=== PATIENT | female | born 1935 | race Caucasian/White ===

== ENCOUNTER 2017-02-14 10:47 | Emergency (ER) | payer OTHER ==
[2017-02-14 10:55] VITALS: BP 156/69; BMI 23.1
[2017-02-14] MEDS ORDERED: MORPHINE SULFATE INJ 4 MG IVP ONE ×2 (11:00→11:02)
[2017-02-14] MEDS ORDERED: ZOFRAN INJ 4 MG VIAL IVP ONE ×2 (11:00→11:02)
--- NOTE | 2017-02-14 11:00 | DR.GENAD ---
HPI - PCP Primary Care Physician: DR. CAGE - HPI Comment HPI Comment: FELL OFF SIDE WALK ON HER RIGHT SIDE. PAIN RIGHT SHOULDER AND HIP. NO LOC. - Complaint/Symptoms Chief Complaint Doctors Comments: FELL, PAIN RIGHT HIP AND RIGHT SHOULDER. Chief Complaint:: PATIENT STEPPED OFF THE SIDEWALK AND FELL. PATIENT IS C/O RIGHT SHOULDER AND RIGHT HIP PAIN. PATIENT IS ON LONG SPINE BOARD AT THIS TIME. - Nurses notes reviewed Nurses Notes Review: Yes - Source History Provided: Patient, EMS - Mode of Arrival Mode of Arrival: EMS - Timing Onset of Chief Complaint: 02/14/17 Came on: Suddenly - Duration Duration: Constant Duration: Days - Severity Severity: Moderate PMH - PMH Past Medical History: Yes Past Medical History: GERD Past Medical History Comment: PVC Past Surgical History: Yes Surgical History: Abdominal Surgery, COUNTER WAITRESS/WAITER Surgery, Ortho Surgery Past Surgical History Comment: RT. SHLD REPLACEMENT, RT HIP REPLACEMENT AND RT KNEE REPLACEMENT - Family History History of Family Medical Conditions: Yes Family Medical History: Cancer, [place], Hypertension - Social History Does patient currently use any type of tobacco product: No Have you used tobacco products in the last 12 months: No Type of Tobacco Use: None Does any household member use tobacco: No Alcohol Use: None Do you use any recreational Drugs:: No Lives With: Family Lives Where: Home - infectious screening In the last 2 months have you had wt loss of >10#?: NO Have you had fever, night sweats or hemotysis?: No Have you traveled outside the country in the last 6 months?: No Isolation: Standard ROS - Review of Systems Constitutional: No Symptoms Reported Eyes: No Symptoms Reported ENTM: No Symptoms Reported Respiratoy: No Symptoms Reported Cardiovascular: No Symptoms Reported Gastrointestinal/Abdominal: No Symptoms Reported Genitourinary: No Symptoms Reported Neurological: No Symptoms Reported Musculoskeletal: Right, Shoulder, Hip Integumentary: No Symptoms Reported Hematologic/Lymphatic: No Symptoms Reported Endocrine: No Symptoms Reported All Other Systems: Reviewed and Negative PE - Vital Signs Vitals: Temperature 98.2 F Pulse Rate 60 Respiratory Rate 20 Blood Pressure [Left Arm] 118/55 Blood Pressure [Right Arm] 130/58 Blood Pressure 156/69 O2 Sat by Pulse Oximetry 100 - General Limitations: No Limitations General Appearance: Alert - Head Head Exam: Normal Inspection - Eyes Eye exam: Normal Appearance - ENT ENT Exam: Normal External Ear Exam External Ear Exam: Normal External Inspection TM/Canal Exam: Bilateral Normal Nose Exam: Normal Nose Exam Mouth Exam: Normal Inspection Throat Exam: Normal Inspection - Neck Neck Exam: Trachea Midline - Chest Chest Inspection: Symmetric Chest Wall Rise - Respiratory Respiratory Exam: Normal Lung Sounds Bilat Respiratory Exam: Bilateral Clear to Auscultation - Cardiovascular Cardiovascular Exam: Regular Rate, Normal Rhythm, Normal Heart Sounds - Abdominal Exam Abdominal Exam: Normal Bowel Sounds, Soft. negative: Tenderness - Extremities Extremities Exam: Tenderness, Joint Swelling (SHOULDER AND HIP TENDER, ROM DECREASE.) - Back Back Exam: Normal Inspection - Neurologic Neurological Exam: Alert, Oriented X3 - Psychiatric Psychiatric Exam: Normal Affect, Normal Mood - Skin Skin Exam: Normal Color MDM - Additional Information Additional Information Obtained From: Family - Differential Diagnosis Differential Diagnosis: FRACTURE, CONTUSION AND SPRAIN RT HIP AND ANKLE. RT HIP DISLOCATION. Course - Treatment Treatment: SEE ORDERS. PAIN MED IV TWICE IN ED. - Reevaluation 1st: Improved (PAIN IMPROVE WITH MED.) - Consultation Consultation Comments: PATIENT ACCEPTED FOR TANSFER TO [facility] BY DR. HUTCHISON, ED. - Education/Counseling Education/Counseling: Patient, Family, Education Educated On: Diagnosis ROR - Labs Reviewed Laboratory: Specimen Type Catherized urine 02/14/17 13:20 Urine Color Yellow (YELLOW) 02/14/17 13:20 Urine Appearance Hazy (CLEAR) 02/14/17 13:20 Urine pH 7.0 (5.0 - 8.0) 02/14/17 13:20 Ur Specific [place] 1.005 (1.000-1.030) 02/14/17 13:20 Urine Protein Negative (NEGATIVE) 02/14/17 13:20 Urine Glucose (UA) Negative (NEGATIVE) 02/14/17 13:20 Urine Ketones Negative (NEGATIVE) 02/14/17 13:20 Urine Occult Blood Negative (NEGATIVE) 02/14/17 13:20 Urine Nitrite Negative (NEGATIVE) 02/14/17 13:20 Urine Bilirubin Negative (NEGATIVE) 02/14/17 13:20 Urine Urobilinogen Normal (NORMAL) 02/14/17 13:20 Ur Leukocyte Esterase Negative (NEGATIVE) 02/14/17 13:20 Urine RBC None seen /HPF (NEGATIVE) 02/14/17 13:20 Urine WBC None seen /HPF (NEGATIVE) 06/28/17 13:20 Ur Squamous Epith Cells Rare /HPF (NEGATIVE) 02/14/17 13:20 Amorphous Sediment 3+ /HPF (NEGATIVE) 02/14/17 13:20 Urine Bacteria Trace /HPF (NEGATIVE) 02/14/17 13:20 Ur Culture Indicated? No/not indicated 02/14/17 13:20 - XRAY XRAY Findings: REPORT DISCUSS WITH PATIENT. - Diagnosis Discharge Problem: Periprosthetic fracture around internal prosthetic right hip joint Qualifiers: Encounter type: initial encounter Qualified Code(s): M97.01XA - Periprosthetic fracture around internal prosthetic right hip joint, initial encounter Right clavicle fracture Qualifiers: Encounter type: initial encounter Clavicle location: shaft Fracture type: closed Fracture alignment: displaced Qualified Code(s): S42.021A - Displaced fracture of shaft of right clavicle, initial encounter for closed fracture Sprain of right knee Qualifiers: Encounter type: initial encounter Involved ligament of knee: unspecified ligament Qualified Code(s): S83.91XA - Sprain of unspecified site of right knee , initial encounter - Discharge Plan Disposition: 02 XFER [facility] HOS[facility] Condition: Stable - Follow ups/Referrals Follow ups/Referrals: Eddie Cage [Primary Care Provider] - 3 days - Instructions
[2017-02-14] MEDS ORDERED: MORPHINE SULFATE INJ 4 MG IM ONE (11:01)
[2017-02-14] MEDS ORDERED: ZOFRAN INJ 4 MG VIAL IM ONE (11:01)
[2017-02-14] MEDS ORDERED: ZOFRAN INJ 4 MG VIAL ONE ×2 (11:04→14:15)
[2017-02-14] MEDS ORDERED: MORPHINE SULFATE INJ 4 MG ONE (11:04)
--- NOTE | 2017-02-14 11:31 | RAD ---
Right hip-two views Indication: Pain after fall. Findings: There is bipolar right hip arthroplasty projecting as expected. Fracture of the lesser tro chanter noted, displaced medially. This appears acute. Spine pelvis degenerative change noted. Impression: Acute right periprostatic fracture involving the lesser trochanter which is displaced me dially. Reported By:
--- NOTE | 2017-02-14 11:32 | RAD ---
Right knee two views Indication: Right knee pain after fall. Findings: Right knee prosthesis is intact without large effusion or cortical lucency seen. No fractu re. Impression: Intact right knee arthroplasty without fracture. Reported By:
--- NOTE | 2017-02-14 11:34 | RAD ---
HISTORY: Fall. Study: Three views of the right shoulder. Comparison: Portable chest series dated November 12, 2016 and right shoulder series dated August 28. Findings: The patient is status post right shoulder arthroplasty that appears unchanged and intact. There is a n inferior displaced fracture of the right distal clavicle with widening of the associated acromiocl avicular joint. Remaining visualized osseous structures appear intact. The visualized lung is clear. The soft tissues are unremarkable. IMPRESSION: 1. Right distal clavicular fracture as above. 2. Right shoulder arthroplasty appears intact. Reported By:
[2017-02-14 13:36] LABS: BILIRUBIN,URINE NEGATIVE (NEGATIVE); BLOOD/HEMOGLOBIN,URINE NEGATIVE (NEGATIVE); GLUCOSE, URINE NEGATIVE (NEGATIVE); KETONES,URINE NEGATIVE (NEGATIVE); LEUKOCYTE ESTERASE ,URINE NEGATIVE (NEGATIVE); NITRITES,URINE NEGATIVE (NEGATIVE); PROTEIN,URINE NEGATIVE (NEGATIVE); UROBILINOGEN,URINE NORMAL (NORMAL)
[2017-02-14 13:50] LABS: AMORPHOUS SEDIMENT,UR 3+ /HPF (NEGATIVE); APPEARANCE,URINE HAZY (CLEAR); BACTERIA,URINE TRACE /HPF (NEGATIVE); COLOR,URINE YELLOW (YELLOW); RBC,URINE NONE SEEN /HPF (NEGATIVE); SQUAMOUS EPITHELIAL CELL,UR RARE /HPF (NEGATIVE)
[2017-02-14] MEDS ORDERED: DILAUDID INJ IVP ONE (13:58)
[2017-02-14] MEDS ORDERED: DILAUDID INJ ONE (13:59)
[2017-02-14] MEDS ORDERED: PHENERGAN INJ 25 MG ONE (14:45)
== END 2017-02-14 14:42 | disposition short-term general hospital (02) ==
LOC: ER 10:47
DX: S83.91XA Sprain of unspecified site of right knee, initial encounter (principal); S42.021A Displaced fracture of shaft of right clavicle, initial encounter for closed fracture; M97.01XA Periprosthetic fracture around internal prosthetic right hip joint, initial encounter; W19.XXXA Unspecified fall, initial encounter
CPT/HCPCS: 73030; 73501; 73560; 81001; 96365; 96367; 96374; 96375; 99283; 99285; J1170; J2270; J2405; J2550

== ENCOUNTER → 2017-03-01 | Outpatient (CLI) | payer OTHER ==
[2017-02-14 10:55] VITALS: BP 156/69
--- NOTE | 2017-03-01 15:07 | RAD ---
HISTORY: Patient status post repair postop fracture are right hip prosthesis. Study: Two views of the right hip. Comparison: Right hip series dated February 14 2017. Findings: Patient is status post cerclage placement about a right total hip arthroplasty from recent periprost hetic fracture. There is improved alignment without significant healing. The hardware otherwise appe ars intact. Remaining osseous structures appear unchanged. Surgical clips overlying the soft tissues on the right. IMPRESSION: Improved alignment without significant healing. Reported By:
== END | disposition home or self-care (01) ==
LOC: RAD 13:30
PROVIDERS: ATTEND Internal Medicine
DX: M97.01XA Periprosthetic fracture around internal prosthetic right hip joint, initial encounter (principal); X58.XXXA Exposure to other specified factors, initial encounter; Z98.890 Other specified postprocedural states
CPT/HCPCS: 73501

== ENCOUNTER 2018-10-30 09:20 | Observation (INO) ==
[2018-10-30 10:29] LABS: BASOPHILS % (AUTO) 0.7 % (0.2-1.0); EOSINOPHILS # (AUTO) 0.1 x10^3/uL (0.0-0.2); EOSINOPHILS % (AUTO) 1.5 % (0.9-2.9); HEMATOCRIT 36.2 % (36.0-47.0); HEMOGLOBIN 12.4 g/dL (12.0-16.0); LYMPHOCYTES # (AUTO) 2.4 X10^3/uL (1.3-2.9); LYMPHOCYTES % (AUTO) 44.3 % (21.0-51.0); MEAN CORPUSCULAR HEMOGLOBIN 29.3 pg (27.0-34.0); MEAN CORPUSCULAR HGB CONC 34.1 g/dL (33.0-35.0); MEAN CORPUSCULAR VOLUME 85.8 fL (80.0-100.0); MEAN PLATELET VOLUME 7.8 fL (7.4-11.0); MONOCYTES # (AUTO) 0.5 x10^3/uL (0.3-0.8); MONOCYTES % (AUTO) 9.8 % (0.0-13.0); NEUTROPHILS # (AUTO) 2.4 x10^3/uL (2.2-4.8); NEUTROPHILS % (AUTO) 43.7 % (42.0-75.0); PLATELET COUNT 180 X10^3/uL (150.0-450.0); RED BLOOD COUNT 4.23 X10^6/uL (3.5-5.4); WHITE BLOOD COUNT 5.4 X10^3/uL (3.6-10.0)
--- NOTE | 2018-10-30 10:38 | RAD ---
HISTORY: Chest pain Study: Single-view chest, done portably Comparison: 11/12/2016. Findings: There is evidence of a reverse right shoulder arthroplasty. There is slight [id number]-vb-[id number] deviation of trachea at the level of the thoracic inlet. This may indicate thyroid enlargement or other neck mass. Thyroid ultrasound may be of benefit. There is cardiomegaly with atherosclerotic calcification and uncoiling of the aortic arch. There is hyperinflation of the lungs with increased interstitial markings. Findings may represent COPD in the appropriate clinical setting. No consolidation, CHF, pleural fluid or pneumothorax is seen. IMPRESSION: Findings likely representing COPD. No infiltrate or CHF is seen. Slight [id number]-ke-[id number] deviation of the trachea at the level of the thoracic inlet. This may be on the basis of thyroid or other neck mass. Thyroid ultrasound is suggested. Reported By:
--- NOTE | 2018-10-30 10:46 | DR.SOBA ---
HPI Time Seen Time Seen by Provider: 10/30/18 10:46 Primary Care Physician Primary Care Physician: FAUZIA HPI Comment HPI Comment: PATIENT SUDDEN BECAME SOB AT HOME AND STARTED HAVING DISCOMFORT IN THEN HAVING PAIN IN [place] HE XYPHOID AREA. DDENIES FEVER, DYSURIA OR URI SYMPTOMS. Complaints Chief Complaint Doctors Comments: SOB, EPIGASTRIC PAIN. 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 Duration: Minutes Context Onset:: At Rest PE Risk Factors:: None History of:: None Currently on:: Neither Prehospital Care:: None Modifying Factors Worsens:: Nothing Improves:: Nothing Associated Signs and Symptoms Associated Signs and Symptoms: None PMH PMH Past Medical History: Yes Past Medical History: GERD Past Surgical History: Yes Surgical History: Abdominal Surgery, EVAPORATOR Surgery and Ortho Surgery Family History History of Family Medical Conditions: Yes Family Medical History: Cancer, [place] and Hypertension Social History Does any household member use tobacco: No Alcohol Use: None Do you use any recreational Drugs:: No Lives With: Spouse Lives Where: Home infectious screening In the last 2 months have you had wt loss of >10#?: NO Have you had fever, night sweats or hemotysis?: No Have you traveled outside the country in the last 6 months?: No Isolation: Standard ROS Review of Systems Constitutional: No Symptoms Reported Eyes: No Symptoms Reported ENTM: No Symptoms Reported Respiratoy: Short of Breath Cardiovascular: Chest Pain Gastrointestinal/Abdominal: Abdominal Pain (EPIGASTRIC PAIN.) Genitourinary: No Symptoms Reported Neurological: No Symptoms Reported Musculoskeletal: No Symptoms Reported and Foot Integumentary: No Symptoms Reported Hematologic/Lymphatic: No Symptoms Reported Endocrine: No Symptoms Reported Psychiatric: No Symptoms Reported All Other Systems: Reviewed and Negative PE Vital Signs Vitals: Temperature 97.9 F Pulse Rate [Apical] 56 Pulse Rate 57 Respiratory Rate 20 Blood Pressure [Left Arm] 132/65 Blood Pressure [Right Arm] 130/58 Blood Pressure 134/60 O2 Sat by Pulse Oximetry 99 General Limitations: No Limitations General Appearance: Alert and In No Apparent Distress Head Head Exam: Normal Inspection Eyes Eye exam: Normal Appearance ENT ENT Exam: Normal External Ear Exam Neck Neck Exam: Normal Inspection; negative Trachea Midline (DEVIATED TO RT SLIGHTLY.) Chest Chest Inspection: Normal Inspection and Symmetric Chest Wall Rise Respiratory Respiratory Exam: Normal Lung Sounds Bilat Respiratory Exam: Bilateral: Clear to Auscultation Cardiovascular Cardiovascular Exam: Regular Rate and Normal Rhythm Abdominal Exam Abdominal Exam: Normal Inspection, Normal Bowel Sounds and Soft Extremities Extremities Exam: Tenderness (WALKING BOOT LT FOOT.) Back Back Exam: Normal Inspection Neurologic Neurological Exam: Alert, Oriented X3 and CN II-XII Intact; negative Motor Sensory Deficit Psychiatric Psychiatric Exam: Normal Affect and Normal Mood Skin Skin Exam: Warm, Dry, Intact and Normal Color MDM Additional Information Obtained Additional Information Obtained From: Old Records and Family Differential Diagnosis Differential Diagnosis: Bronchitis, Dysrhythmia, Hyponatremia, Mycardial Infarction, Pneumonia, Pneumothorax, Pulmonary embolism and Respiratory Insufficiency COURSE Treatment Treatment: SEE ORDERS. Consultation Consultation Comments: CARDIOLOGY CONSULT, DR. TATE CAME TO ED TO SEE PATIENT. DR CAGE WILL ADMIT PATIENT. Education/Counseling Education/Counseling: Patient and Family Educated On: Diagnosis ROR Labs Reviewed Laboratory Results Reviewed?: Yes Result Diagrams: 11/01/18 04:25 11/01/18 04:25 Laboratory: WBC 6.5 X10^3/uL (3.6-10.0) 11/01/18 04:25 RBC 4.32 X10^6/uL (3.5-5.4) 11/01/18 04:25 Hgb 12.5 g/dL (12.0-16.0) 11/01/18 04:25 Hct 37.9 % (36.0-47.0) 11/01/18 04:25 MCV 87.7 fL (80.0-100.0) 11/01/18 04:25 MCH 28.9 pg (27.0-34.0) 11/01/18 04:25 MCHC 32.9 g/dL (33.0-35.0) L 11/01/18 04:25 RDW 14.0 % (11.6-16.5) 11/01/18 04:25 Plt Count 195 X10^3/uL (150.0-450.0) 11/01/18 04:25 MPV 8.2 fL (7.4-11.0) 11/01/18 04:25 Neut % (Auto) 40.6 % (42.0-75.0) L 11/01/18 04:25 Lymph % (Auto) 47.1 % (21.0-51.0) 11/01/18 04:25 [place] % (Auto) 9.4 % (0.0-13.0) 11/01/18 04:25 Eos % (Auto) 2.4 % (0.9-2.9) 11/01/18 04:25 Baso % (Auto) 0.5 % (0.2-1.0) 11/01/18 04:25 Neut # (Auto) 2.6 x10^3/uL (2.2-4.8) 11/01/18 04:25 Lymph # (Auto) 3.1 X10^3/uL (1.3-2.9) H 11/01/18 04:25 [place] # (Auto) 0.6 x10^3/uL (0.3-0.8) 11/01/18 04:25 Eos # (Auto) 0.2 x10^3/uL (0.0-0.2) 11/01/18 04:25 Baso # (Auto) 0.0 X10^3/uL (0.0-0.1) 11/01/18 04:25 Absolute Nucleated RBC 0.0 /100WBC 11/01/18 04:25 INR Target Range - 10/30/18 10:10 INR 0.94 (0.8-1.3) 10/30/18 10:10 APTT 28.5 SECONDS (22.9-36.5) 10/30/18 10:10 PTT Comment - 10/30/18 10:10 D-Dimer 881 ng/mL (0-400) H* 10/30/18 10:10 Sodium 139 mmol/L (136-145) 11/01/18 04:25 Corrected Sodium TNP 11/01/18 04:25 Potassium 4.5 mmol/L (3.5-5.1) 11/01/18 04:25 Chloride 105 mmol/L (98-107) 11/01/18 04:25 Carbon Dioxide 25.2 mmol/L (21-32) 11/01/18 04:25 BUN 13 mg/dL (7-18) 11/01/18 04:25 Creatinine 0.63 mg/dL (0.55-1.02) 11/01/18 04:25 Est GFR (MDRD) Af Amer > 60 (>60) 11/01/18 04:25 Est GFR (MDRD) Non-Af > 60 (>60) 11/01/18 04:25 Glucose 89 mg/dL (65-99) 11/01/18 04:25 Calcium 8.2 mg/dL (8.5-10.1) L 11/01/18 04:25 Corrected Calcium 8.8 mg/dL (8.5-10.1) 11/01/18 04:25 Total Bilirubin 0.20 mg/dL (0.2-1.0) 11/01/18 04:25 AST 18 Units/L (15-37) 11/01/18 04:25 ALT 17 Units/L (12-78) 11/01/18 04:25 Alkaline Phosphatase 45 Units/L (46-116) L 11/01/18 04:25 Creatine Kinase 45 Units/L (26-192) 10/31/18 00:15 CK-MB (CK-2) < 1.0 ng/mL (0-4.0) 10/31/18 00:15 CK/CKMB % Calc 2.2 % (<4) 10/31/18 00:15 Troponin I 0.03 ng/mL (0-1.5) 10/31/18 00:15 Total Protein 6.6 g/dL (6.4-8.2) 11/01/18 04:25 Albumin 3.2 g/dL (3.4-5.0) L 11/01/18 04:25 Globulin 3.4 g/dL (2.5-4.5) 11/01/18 04:25 Albumin/Globulin Ratio 0.9 Ratio (1.1-2.1) L 11/01/18 04:25 Triglycerides 31 mg/dL (0-150) 10/31/18 04:05 Cholesterol 155 mg/dL (0-200) 10/31/18 04:05 LDL Cholesterol, Calc 77 mg/dL (0-100) 10/31/18 04:05 HDL Cholesterol 72 mg/dL (40-60) H 10/31/18 04:05 Cholesterol/HDL Ratio 2.2 (0.0-5.0) 10/31/18 04:05 TSH 3rd Generation 0.231 uIU/mL (0.358-3.74) L 10/30/18 12:05 Specimen Type Clean catch urine 10/30/18 12:43 Urine Color Yellow (YELLOW) 10/30/18 12:43 Urine Appearance Clear (CLEAR) 10/30/18 12:43 Urine pH 8.0 (5.0 - 8.0) 10/30/18 12:43 Ur Specific [place] 1.015 (1.000-1.030) 10/30/18 12:43 Urine Protein Negative (NEGATIVE) 10/30/18 12:43 Urine Glucose (UA) Negative (NEGATIVE) 10/30/18 12:43 Urine Ketones Negative (NEGATIVE) 10/30/18 12:43 Urine Occult Blood Negative (NEGATIVE) 10/30/18 12:43 Urine Nitrite Negative (NEGATIVE) 10/30/18 12:43 Urine Bilirubin Negative (NEGATIVE) 10/30/18 12:43 Urine Urobilinogen Normal (NORMAL) 10/30/18 12:43 Ur Leukocyte Esterase Negative (NEGATIVE) 10/30/18 12:43 XRAY XRAY Interpreted by: Radiologist XRAY Findings: REPORT ON RECORD NOTED AND DISCUSS WITH PATIENT AND HER FAMILY.
[2018-10-30] MEDS ORDERED: PEPCID 20 MG IV PREMIX* 20 MG/50 ML BAG IV ONE ×2 (10:48→11:01)
[2018-10-30 11:04] LABS: ALANINE AMINOTRANSFERASE 19 Units/L (12-78); ALBUMIN 3.3 g/dL (3.4-5.0); ALKALINE PHOSPHATASE 45 Units/L (46-116); ASPARTATE AMINO TRANSFERASE 20 Units/L (15-37); BLOOD UREA NITROGEN 14 mg/dL (7-18); CARBON DIOXIDE 24.1 mmol/L (21-32); CHLORIDE 104 mmol/L (98-107); CKMB % 1.8 % (<4); COR CA(FOR HYPOALB) 9.6 mg/dL (8.5-10.1); CREATINE KINASE 56 Units/L (26-192); CREATINE KINASE MB < 1.0 ng/mL (0-4.0); CREATININE 0.63 mg/dL (0.55-1.02); SODIUM 136 mmol/L (136-145); TOTAL PROTEIN 6.7 g/dL (6.4-8.2); TROPONIN I 0.06 ng/mL (0-1.5); eGFR NON BLACK RACES > 60 (>60)
--- NOTE | 2018-10-30 12:01 | CT ---
HISTORY: Chest pain Study: CTA chest with contrast for pulmonary embolus Comparison: None Technique: Axial post-contrast images with coronal, sagittal, and three-dimensional maximum intensity projection images obtained and evaluated. Dose reduction procedures were used with mA/kv adjusted for body size. Findings: There is no evidence for acute pulmonary thromboembolic disease. Examination of the mediastinum demonstrated enlargement of the left lobe of the thyroid within which there may well be a mass. It contributes to rightward deviation of the upper trachea. Evaluation with sonography is recommended. This could be performed on a non emergent basis. No enlarged mediastinal or enlarged hilar adenopathy is identified. The thoracic aorta demonstrates some calcific atherosclerotic change but no significant dilatation. No pleural effusions are identified. No chest wall or axillary abnormality is identified. Evaluation of those portions of the upper abdominal organs visualized was within normal limits. Multiple benign hepatic cysts are present. Examination of the lung conway demonstrated no definite evidence for nodules, masses, alveolar infiltrates, areas of consolidation, peribronchial thickening, or bronchiectasis. IMPRESSION: No evidence for acute pulmonary thromboembolic disease Lungs clear Marked enlargement of the left thyroid lobe possibly containing a large mass. Sonographic evaluation is recommended. This could be performed on a non emergent basis. Reported By:
--- NOTE | 2018-10-30 12:22 | CONS ---
Cardiology Consult Consultation for Day of: Date: 10/30/18 Chief Complaint Chief Complaint: chest pain Allergies Allergies Allergy/AdvReac Type Severity Reaction Status Date / Time carbamazepine [From Tegretol] Allergy Verified 10/30/18 09:28 Sulfa (Sulfonamide Allergy Verified 10/30/18 09:28 Antibiotics) [SULFA] Past Medical History Past Medical History: Arthritis and GERD Past Surgical History Surgical History: Abdominal Surgery, HR BUSINESS PARTNER Surgery and Ortho Surgery Family History Family Medical History: Cancer, [place] and Hypertension Social History Does patient currently use any type of tobacco product: No Have you used tobacco products in the last 12 months: No Does any household member use tobacco: No Alcohol Use: None Medications Home Medications: carbamazepine [From Tegretol] Allergy (Verified 10/30/18 09:28) Sulfa (Sulfonamide Antibiotics) [SULFA] Allergy (Verified 10/30/18 09:28) Review of Systems Respiratory: Shortness of Breath and SOB with Excertion Cardiovascular: Chest Pain Physical Exam Vital Signs: Temperature 97.1 F Pulse Rate 60 Respiratory Rate 38 Blood Pressure [Left Arm] 118/55 Blood Pressure [Right Arm] 130/58 Blood Pressure 136/63 O2 Sat by Pulse Oximetry 96 Oriented: Normal Eyes: Normal Throat: Normal Respiratory: Clear Throughout Cardiovascular: Normal and S4 Palpation: Normal Medical Decision Making EKG Results: Sinus Rhythm Labs reviewed: Yes Radiology Reviewed: Yes
[2018-10-30 12:35] LABS: CKMB % 1.9 % (<4); CREATINE KINASE 53 Units/L (26-192); CREATINE KINASE MB < 1.0 ng/mL (0-4.0); TROPONIN I 0.04 ng/mL (0-1.5)
[2018-10-30 13:00] LABS: BILIRUBIN,URINE NEGATIVE (NEGATIVE); BLOOD/HEMOGLOBIN,URINE NEGATIVE (NEGATIVE); GLUCOSE, URINE NEGATIVE (NEGATIVE); KETONES,URINE NEGATIVE (NEGATIVE); LEUKOCYTE ESTERASE ,URINE NEGATIVE (NEGATIVE); NITRITES,URINE NEGATIVE (NEGATIVE); PROTEIN,URINE NEGATIVE (NEGATIVE); UROBILINOGEN,URINE NORMAL (NORMAL)
[2018-10-30 13:28] LABS: APPEARANCE,URINE CLEAR (CLEAR); COLOR,URINE YELLOW (YELLOW)
[2018-10-30 16:03] VITALS: BMI 21.1
[2018-10-30] MEDS: NS 1000 ML 1,000 ML IV SCH ×2 (16:21)
[2018-10-30 18:25] LABS: CKMB % 1.9 % (<4); CREATINE KINASE 52 Units/L (26-192); CREATINE KINASE MB < 1.0 ng/mL (0-4.0); TROPONIN I 0.04 ng/mL (0-1.5)
[2018-10-31] MEDS ORDERED: TOPROL XL PO ONE (00:05)
[2018-10-31] MEDS: TOPROL XL PO SCH ×2 (00:15→21:13)
[2018-10-31 00:47] LABS: CKMB % 2.2 % (<4); CREATINE KINASE 45 Units/L (26-192); CREATINE KINASE MB < 1.0 ng/mL (0-4.0); TROPONIN I 0.03 ng/mL (0-1.5)
[2018-10-31 05:21] LABS: BASOPHILS % (AUTO) 0.5 % (0.2-1.0); EOSINOPHILS # (AUTO) 0.1 x10^3/uL (0.0-0.2); HEMATOCRIT 34.5 % (36.0-47.0); HEMOGLOBIN 11.8 g/dL (12.0-16.0); LYMPHOCYTES # (AUTO) 2.5 X10^3/uL (1.3-2.9); LYMPHOCYTES % (AUTO) 52.1 % (21.0-51.0); MEAN CORPUSCULAR HEMOGLOBIN 29.5 pg (27.0-34.0); MEAN CORPUSCULAR HGB CONC 34.1 g/dL (33.0-35.0); MEAN CORPUSCULAR VOLUME 86.4 fL (80.0-100.0); MEAN PLATELET VOLUME 7.9 fL (7.4-11.0); MONOCYTES # (AUTO) 0.5 x10^3/uL (0.3-0.8); MONOCYTES % (AUTO) 10.4 % (0.0-13.0); NEUTROPHILS # (AUTO) 1.6 x10^3/uL (2.2-4.8); PLATELET COUNT 169 X10^3/uL (150.0-450.0); RED BLOOD COUNT 3.99 X10^6/uL (3.5-5.4); RED CELL DISTRIBUTION WIDTH 13.8 % (11.6-16.5); WHITE BLOOD COUNT 4.8 X10^3/uL (3.6-10.0)
[2018-10-31 05:46] LABS: ALANINE AMINOTRANSFERASE 18 Units/L (12-78); ALKALINE PHOSPHATASE 42 Units/L (46-116); ASPARTATE AMINO TRANSFERASE 17 Units/L (15-37); BLOOD UREA NITROGEN 13 mg/dL (7-18); CALCIUM 8.2 mg/dL (8.5-10.1); CARBON DIOXIDE 25.8 mmol/L (21-32); CHLORIDE 105 mmol/L (98-107); CHOL/HDL RATIO 2.2 (0.0-5.0); CHOLESTEROL 155 mg/dL (0-200); CREATININE 0.64 mg/dL (0.55-1.02); HDL CHOLESTEROL 72 mg/dL (40-60); SODIUM 140 mmol/L (136-145); TOTAL PROTEIN 6.2 g/dL (6.4-8.2); TRIGLYCERIDES 31 mg/dL (0-150); eGFR NON BLACK RACES > 60 (>60)
[2018-10-31] MEDS: NS 1000 ML 1,000 ML IV SCH ×3 (07:02→16:17)
--- NOTE | 2018-10-31 08:37 | US ---
HISTORY: Thyroid mass Study: Thyroid sonogram Comparison: CTA chest 10/30/2018 Technique: Multiple grayscale sonographic images were obtained. Findings: The right lobe measured 3.4 x 1.8 x 1.5 cm, the isthmus 2 mm, and the left lobe 4.5 x 3 x 3.7 cm. In the right lobe of the thyroid there is a 5 mm x 3 mm x 6 mm nodule which does not meet the criteria for fine-needle aspiration. In the left lobe of the thyroid there is a complex partially cystic partially solid 3.8 x 2.8 x 3 cm mass. Fine-needle aspiration of the solid components of the mass is recommended. IMPRESSION: 3.8 x 2.8 x 3 cm complex partially cystic partially solid left thyroid lobe mass for which fine-needle aspiration is recommended. Reported By:
--- NOTE | 2018-10-31 10:13 | DR.H&P ---
H&P - History & Physical for Day of: H&P Date: 10/30/18 - Chief Complaint Chief Complaint: SOB, CHEST PAIN - History of Present Illness History of Present Illness: IS A 83 YEAR OLD PATIENT OF OURS WHO PRESENTED TO THE ER WITH COMPLAINTS OF CHEST PAIN AND SHORTNESS OF BREATH. SYMPTOMS STARTED APPROXIMATELY 20 MINUTES PRIOR TO ARRIVAL. SHE DENIES ANY OTHER COMPLAINTS. ON ARRIVAL, VITALS WERE 97.1-66-20-100%-136/63. LABS WERE OBTAINED. ABNORMAL LAB VALUES INCLUDE THE FOLLOWING: D-DIMER 881, ALK PHOS 45, ALBUMIN 3.3, TSH 0.231. CARDIAC ENZYMES WITHIN NORMAL LIMITS. A CHEST XRAY WAS OBTAINED AND REVEALED: Findings likely representing COPD. No infiltrate or CHF is seen. Slight esaj-ma-dxjmy deviation of the trachea at the level of the thoracic inlet. This may be on the basis of thyroid or other neck mass. Thyroid ultrasound is suggested. CHEST CTA OBTAINED DUE TO ELEVATED D-DIMER AND SOB AND REVEALED: No evidence for acute pulmonary thromboembolic disease. Lungs clear. Marked enlargement of the left thyroid lobe possibly containing a large mass. Sonographic evaluation is recommended. This could be performed on a non-emergent basis. SHE WAS GIVEN PEPCID 20MG IV X 1. SHE WAS ADMITTED FOR FURTHER EVALUATION AND TREAMENT OF CHEST PAIN R/O AMI, SOB, AND THYROID MASS. WE WILL OBTAIN SERIAL CARDIAC ENZYMES AND EKGS AND OBTAIN A THYROID ULTRASOUND. OTHERWISE, WE WILL FOLLOW UP WITH AM LABS AND CONTINUE TO MONITOR. - Past Medical History Past Medical History: GERD - Past Surgical History Surgical History: Cholecystectomy, Ortho Surgery - Family History Family Medical History: Cancer, [place], Hypertension - Social History Does patient currently use any type of tobacco product: No Have you used tobacco products in the last 12 months: No Type of Tobacco Use: None Does any household member use tobacco: No Alcohol Use: None Drug Use: None - Medications Home Medications: carbamazepine [From Tegretol] Allergy (Verified 10/30/18 09:28) Sulfa (Sulfonamide Antibiotics) [SULFA] Allergy (Verified 10/30/18 09:28) sulfamethoxazole [From Bactrim] Adverse Reaction (Verified 10/30/18 14:13) trimethoprim [From Bactrim] Adverse Reaction (Verified 10/30/18 14:13) - Review of Systems Constitutional: No Symptoms Reported, See HPI Eyes: No Symptoms Reported ENT: No Symptoms Reported Respiratory: See HPI, Shortness of Breath Cardiovascular: Chest Pain, See HPI Gastrointestinal: No Symptoms Reported Genitourinary: No Symptoms Reported Musculoskeletal: No Symptoms Reported Skin: No Symptoms Reported Neurological: No Symptoms Reported - Physical Exam Vital Signs: Temperature 98.6 F Pulse Rate [Apical] 56 Pulse Rate 57 Respiratory Rate 18 Blood Pressure [Left Arm] 122/60 Blood Pressure [Right Arm] 130/58 Blood Pressure 134/60 O2 Sat by Pulse Oximetry 96 Oriented: Normal Eyes: Normal Ear: Normal Nose: Normal Throat: Normal Respiratory: Clear Throughout Cardiovascular: Normal : Normal Auscultation: Bowel Sounds: Normal Palpation: Normal Tenderness: Normal Skin: Normal Musculoskeletal: Normal Psychiatric: Normal Mood Description: Calm Affect: Normal Speech Pattern: Clear - Assessment/Plan (1) Chest pain, rule out acute myocardial infarction Status: Acute Plan: OBTAIN SERIAL CARDIAC ENZYMES AND EKGS, TELEMETRY, SUPPLEMENTAL OXYGEN, CONTINUE TO MONITOR (2) Shortness of breath Status: Acute Plan: SUPPLEMENTAL OXYGEN, CONTINUE TO MONITOR (3) Thyroid mass Status: Acute Plan: OBTAIN THYROID ULTRASOUND, CONTINUE TO MONITOR (4) Hyperthyroidism Status: Acute - Allergies Allergies/Adverse Reactions: Allergies Allergy/AdvReac Type Severity Reaction Status Date / Time carbamazepine [From Tegretol] Allergy Verified 10/30/18 09:28 Sulfa (Sulfonamide Allergy Verified 10/30/18 09:28 Antibiotics) [SULFA] sulfamethoxazole AdvReac Verified 10/30/18 14:13 [From Bactrim] trimethoprim [From Bactrim] AdvReac Verified 10/30/18 14:13
[2018-10-31] MEDS ORDERED: MIRALAX POWDER (1 DOSE 17 G) PO SCH (21:00)
[2018-11-01 05:18] LABS: BASOPHILS % (AUTO) 0.5 % (0.2-1.0); EOSINOPHILS # (AUTO) 0.2 x10^3/uL (0.0-0.2); EOSINOPHILS % (AUTO) 2.4 % (0.9-2.9); HEMATOCRIT 37.9 % (36.0-47.0); HEMOGLOBIN 12.5 g/dL (12.0-16.0); LYMPHOCYTES # (AUTO) 3.1 X10^3/uL (1.3-2.9); LYMPHOCYTES % (AUTO) 47.1 % (21.0-51.0); MEAN CORPUSCULAR HEMOGLOBIN 28.9 pg (27.0-34.0); MEAN CORPUSCULAR HGB CONC 32.9 g/dL (33.0-35.0); MEAN CORPUSCULAR VOLUME 87.7 fL (80.0-100.0); MEAN PLATELET VOLUME 8.2 fL (7.4-11.0); MONOCYTES # (AUTO) 0.6 x10^3/uL (0.3-0.8); MONOCYTES % (AUTO) 9.4 % (0.0-13.0); NEUTROPHILS # (AUTO) 2.6 x10^3/uL (2.2-4.8); NEUTROPHILS % (AUTO) 40.6 % (42.0-75.0); PLATELET COUNT 195 X10^3/uL (150.0-450.0); RED BLOOD COUNT 4.32 X10^6/uL (3.5-5.4); WHITE BLOOD COUNT 6.5 X10^3/uL (3.6-10.0)
[2018-11-01] MEDS: NS 1000 ML 1,000 ML IV SCH (05:28)
[2018-11-01 05:29] LABS: ALANINE AMINOTRANSFERASE 17 Units/L (12-78); ALBUMIN 3.2 g/dL (3.4-5.0); ALKALINE PHOSPHATASE 45 Units/L (46-116); ASPARTATE AMINO TRANSFERASE 18 Units/L (15-37); BLOOD UREA NITROGEN 13 mg/dL (7-18); CALCIUM 8.2 mg/dL (8.5-10.1); CARBON DIOXIDE 25.2 mmol/L (21-32); CHLORIDE 105 mmol/L (98-107); COR CA(FOR HYPOALB) 8.8 mg/dL (8.5-10.1); CREATININE 0.63 mg/dL (0.55-1.02); SODIUM 139 mmol/L (136-145); TOTAL PROTEIN 6.6 g/dL (6.4-8.2); eGFR NON BLACK RACES > 60 (>60)
--- NOTE | 2018-11-01 09:18 | PCM.PROG ---
Progress Note - Progress Note for Day of Date of Exam: 10/31/18 - Subjective Subjective: WAS ADMITTED FOR CHEST PAIN RULE OUT AMI, SOB, AND A THYROID MASS. TODAY, SHE IS ALERT AND ORIENTED, LYING IN BED ON MORNING ROUNDS. SHE DENIES CHEST PAIN OR SHORTNESS OF BREATH. SHE DOES REPORT GENERALIZED WEAKNESS. ON EXAMINATION, HEART IS REGULAR IN RATE AND RHYTHM. BILATERAL LUNGS ARE NOTED WITH DIMINISHED LUNG SOUNDS THROUGHOUT. ABDOMEN IS ROUND, SOFT, AND NON-TENDER WITH NORMAL BOWEL SOUNDS NOTED IN ALL QUADRANTS. HER VITALS THIS MORNING ARE 98.6-56-96%-122/60. LABS WERE OBTAINED. ABNORMAL LAB VALUES INCLUDE THE FOLLOWING: CALCIUM 8.2, ALK PHOS 45, ALBUMIN 3.2. CARDIAC ENZYMES AND EKGS WITHIN NORMAL LIMITS. SHE IS SCHEDULED FOR A THYROID ULTRASOUND THIS MORNING. OTHERWISE, WE WILL CONTINUE WITH [facility] PLAN OF CARE. WE PLAN TO FOLLOW UP WITH AM LABS AND CONTINUE TO MONITOR. - Past Medical Family Social History Past Med/Fam/Surg Hx: No changes since H&P Allergies: Allergies carbamazepine [From Tegretol] Allergy (Verified 10/30/18 09:28) Sulfa (Sulfonamide Antibiotics) [SULFA] Allergy (Verified 10/30/18 09:28) sulfamethoxazole [From Bactrim] Adverse Reaction (Verified 10/30/18 14:13) trimethoprim [From Bactrim] Adverse Reaction (Verified 10/30/18 14:13) - Review of Systems ROS: No change since H&P - Vital Signs and I&O's Vital Signs: Temperature 98.4 F Pulse Rate [Apical] 57 Pulse Rate 57 Respiratory Rate 16 Blood Pressure [Left Arm] 143/62 Blood Pressure [Right Arm] 130/58 Blood Pressure 134/60 O2 Sat by Pulse Oximetry 94 Intake and Output: Intake & Output 10/29/18 10/30/18 10/31/18 11/01/18 11:59 11:59 11:59 11:59 Intake Total 820 / 820 1310 / 1310 Output Total 5 / 5 Balance 815 / 815 1310 / 1310 - Physical Exam Oriented: Normal Eyes: Normal Ear: Normal Nose: Normal Throat: Normal Respiratory: Generalized, Diminished Cardiovascular: Normal : Normal Auscultation: Bowel Sounds: Normal Palpation: Normal Tenderness: Normal Skin: Normal Musculoskeletal: Normal Psychiatric: Normal Mood Description: Calm Affect: Normal Speech Pattern: Clear, Appropriate - Laboratory and Diagnostics Result Diagrams: 11/01/18 04:25 11/01/18 04:25 Labs: Laboratory WBC 6.5 X10^3/uL (3.6-10.0) 11/01/18 04:25 RBC 4.32 X10^6/uL (3.5-5.4) 11/01/18 04:25 Hgb 12.5 g/dL (12.0-16.0) 11/01/18 04:25 Hct 37.9 % (36.0-47.0) 11/01/18 04:25 MCV 87.7 fL (80.0-100.0) 11/01/18 04:25 MCH 28.9 pg (27.0-34.0) 11/01/18 04:25 MCHC 32.9 g/dL (33.0-35.0) L 11/01/18 04:25 RDW 14.0 % (11.6-16.5) 11/01/18 04:25 Plt Count 195 X10^3/uL (150.0-450.0) 11/01/18 04:25 MPV 8.2 fL (7.4-11.0) 11/01/18 04:25 Neut % (Auto) 40.6 % (42.0-75.0) L 11/01/18 04:25 Lymph % (Auto) 47.1 % (21.0-51.0) 11/01/18 04:25 [place] % (Auto) 9.4 % (0.0-13.0) 11/01/18 04:25 Eos % (Auto) 2.4 % (0.9-2.9) 11/01/18 04:25 Baso % (Auto) 0.5 % (0.2-1.0) 11/01/18 04:25 Neut # (Auto) 2.6 x10^3/uL (2.2-4.8) 11/01/18 04:25 Lymph # (Auto) 3.1 X10^3/uL (1.3-2.9) H 11/01/18 04:25 [place] # (Auto) 0.6 x10^3/uL (0.3-0.8) 11/01/18 04:25 Eos # (Auto) 0.2 x10^3/uL (0.0-0.2) 11/01/18 04:25 Baso # (Auto) 0.0 X10^3/uL (0.0-0.1) 11/01/18 04:25 Absolute Nucleated RBC 0.0 /100WBC 11/01/18 04:25 INR Target Range - 10/30/18 10:10 INR 0.94 (0.8-1.3) 10/30/18 10:10 APTT 28.5 SECONDS (22.9-36.5) 10/30/18 10:10 PTT Comment - 10/30/18 10:10 D-Dimer 881 ng/mL (0-400) H* 10/30/18 10:10 Sodium 139 mmol/L (136-145) 11/01/18 04:25 Corrected Sodium TNP 11/01/18 04:25 Potassium 4.5 mmol/L (3.5-5.1) 11/01/18 04:25 Chloride 105 mmol/L (98-107) 11/01/18 04:25 Carbon Dioxide 25.2 mmol/L (21-32) 11/01/18 04:25 BUN 13 mg/dL (7-18) 11/01/18 04:25 Creatinine 0.63 mg/dL (0.55-1.02) 11/01/18 04:25 Est GFR (MDRD) Af Amer > 60 (>60) 11/01/18 04:25 Est GFR (MDRD) Non-Af > 60 (>60) 11/01/18 04:25 Glucose 89 mg/dL (65-99) 11/01/18 04:25 Calcium 8.2 mg/dL (8.5-10.1) L 11/01/18 04:25 Corrected Calcium 8.8 mg/dL (8.5-10.1) 11/01/18 04:25 Total Bilirubin 0.20 mg/dL (0.2-1.0) 11/01/18 04:25 AST 18 Units/L (15-37) 11/01/18 04:25 ALT 17 Units/L (12-78) 11/01/18 04:25 Alkaline Phosphatase 45 Units/L (46-116) L 11/01/18 04:25 Creatine Kinase 45 Units/L (26-192) 10/31/18 00:15 CK-MB (CK-2) < 1.0 ng/mL (0-4.0) 10/31/18 00:15 CK/CKMB % Calc 2.2 % (<4) 10/31/18 00:15 Troponin I 0.03 ng/mL (0-1.5) 10/31/18 00:15 Total Protein 6.6 g/dL (6.4-8.2) 11/01/18 04:25 Albumin 3.2 g/dL (3.4-5.0) L 11/01/18 04:25 Globulin 3.4 g/dL (2.5-4.5) 11/01/18 04:25 Albumin/Globulin Ratio 0.9 Ratio (1.1-2.1) L 11/01/18 04:25 Triglycerides 31 mg/dL (0-150) 10/31/18 04:05 Cholesterol 155 mg/dL (0-200) 10/31/18 04:05 LDL Cholesterol, Calc 77 mg/dL (0-100) 10/31/18 04:05 HDL Cholesterol 72 mg/dL (40-60) H 10/31/18 04:05 Cholesterol/HDL Ratio 2.2 (0.0-5.0) 10/31/18 04:05 TSH 3rd Generation 0.231 uIU/mL (0.358-3.74) L 10/30/18 12:05 Specimen Type Clean catch urine 10/30/18 12:43 Urine Color Yellow (YELLOW) 10/30/18 12:43 Urine Appearance Clear (CLEAR) 10/30/18 12:43 Urine pH 8.0 (5.0 - 8.0) 10/30/18 12:43 Ur Specific [place] 1.015 (1.000-1.030) 10/30/18 12:43 Urine Protein Negative (NEGATIVE) 10/30/18 12:43 Urine Glucose (UA) Negative (NEGATIVE) 10/30/18 12:43 Urine Ketones Negative (NEGATIVE) 10/30/18 12:43 Urine Occult Blood Negative (NEGATIVE) 10/30/18 12:43 Urine Nitrite Negative (NEGATIVE) 10/30/18 12:43 Urine Bilirubin Negative (NEGATIVE) 10/30/18 12:43 Urine Urobilinogen Normal (NORMAL) 10/30/18 12:43 Ur Leukocyte Esterase Negative (NEGATIVE) 10/30/18 12:43 - Plan (1) Chest pain, rule out acute myocardial infarction Status: Acute Plan: TELEMETRY, SUPPLEMENTAL OXYGEN, CONTINUE TO MONITOR (2) Shortness of breath Status: Acute Plan: SUPPLEMENTAL OXYGEN, CONTINUE TO MONITOR (3) Thyroid mass Status: Acute Plan: OBTAIN THYROID ULTRASOUND, CONTINUE TO MONITOR (4) Hyperthyroidism Status: Acute
[2018-11-01 12:14] VITALS: BP 121/56
== END 2018-11-01 13:00 | disposition home or self-care (01) ==
LOC: ER 09:20 → MED/SURG 09:20
PROVIDERS: ADMIT Internal Medicine; ATTEND Internal Medicine
DX: R79.1 Abnormal coagulation profile; R06.02 Shortness of breath; R07.89 Other chest pain; E05.00 Thyrotoxicosis with diffuse goiter without thyrotoxic crisis or storm; R10.13 Epigastric pain
CPT/HCPCS: 36415; 71010; 71045; 71275; 76536; 80053; 80061; 81003; 82550; 82553; 84443; 84484; 85025; 85378; 85610; 85730; 93005; 94760; 96365; 96367; 96374; 99284; A4222; S0028; G0378; J7030

== ENCOUNTER 2019-05-15 09:53 | Observation (INO) ==
[2019-05-15] MEDS: NS 1000 ML 1,000 ML IV SCH (11:00)
[2019-05-15 11:15] LABS: ABG BASE EXCESS 3.6 mmol/L (-2.0-2.0); ABG HCO3 25.1 mmol/L (22-26)
[2019-05-15 11:16] LABS: ABG ALLEN TEST POS
[2019-05-15 11:26] LABS: BASOPHILS # (AUTO) 0.1 X10^3/uL (0.0-0.1); BASOPHILS % (AUTO) 0.9 % (0.2-1.0); EOSINOPHILS # (AUTO) 0.1 x10^3/uL (0.0-0.2); EOSINOPHILS % (AUTO) 1.4 % (0.9-2.9); HEMATOCRIT 33.5 % (36.0-47.0); HEMOGLOBIN 11.6 g/dL (12.0-16.0); LYMPHOCYTES # (AUTO) 1.6 X10^3/uL (1.3-2.9); LYMPHOCYTES % (AUTO) 26.5 % (21.0-51.0); MEAN CORPUSCULAR HEMOGLOBIN 29.9 pg (27.0-34.0); MEAN CORPUSCULAR HGB CONC 34.7 g/dL (33.0-35.0); MEAN CORPUSCULAR VOLUME 86.1 fL (80.0-100.0); MEAN PLATELET VOLUME 7.4 fL (7.4-11.0); MONOCYTES # (AUTO) 0.6 x10^3/uL (0.3-0.8); MONOCYTES % (AUTO) 9.2 % (0.0-13.0); NEUTROPHILS # (AUTO) 3.7 x10^3/uL (2.2-4.8); PLATELET COUNT 241 X10^3/uL (150.0-450.0); RED BLOOD COUNT 3.89 X10^6/uL (3.5-5.4); RED CELL DISTRIBUTION WIDTH 13.9 % (11.6-16.5)
[2019-05-15 11:46] LABS: BLOOD UREA NITROGEN 7 mg/dL (7-18); CALCIUM 8.5 mg/dL (8.5-10.1); CHLORIDE 100 mmol/L (98-107); CREATININE 0.67 mg/dL (0.55-1.02); SODIUM 135 mmol/L (136-145); TROPONIN I < 0.02 ng/mL (0-1.5); eGFR NON BLACK RACES > 60 (>60)
[2019-05-15 11:50] LABS: ALANINE AMINOTRANSFERASE 16 Units/L (12-78); ALBUMIN 3.1 g/dL (3.4-5.0); ALKALINE PHOSPHATASE 50 Units/L (46-116); ASPARTATE AMINO TRANSFERASE 22 Units/L (15-37); CKMB % 2.2 % (<4); COR CA(FOR HYPOALB) 9.2 mg/dL (8.5-10.1); CREATINE KINASE 45 Units/L (26-192); CREATINE KINASE MB < 1.0 ng/mL (0-4.0); TOTAL PROTEIN 6.4 g/dL (6.4-8.2)
[2019-05-15] MEDS ORDERED: MORPHINE SULFATE INJ 2 MG INJ IVP PRN (12:01)
[2019-05-15] MEDS ORDERED: MORPHINE SULFATE INJ 2 MG INJ ONE (12:04)
[2019-05-15 12:36] VITALS: BMI 21.1
[2019-05-15] MEDS ORDERED: POTASSIUM CHLORIDE LIQ 20 MEQ UDC PO PRN (13:27)
[2019-05-15] MEDS ORDERED: POTASSIUM CHL 40 MEQ/NS 0.45% 500 ML IV PRN (13:27)
[2019-05-15] MEDS ORDERED: K-RIDER 10 MEQ/NS 100 ML 10 MEQ/100 ML BAG IV PRN (13:27)
[2019-05-15] MEDS ORDERED: KLOR-CON PO PRN (13:27)
[2019-05-15] MEDS ORDERED: POTASSIUM CHL 60 MEQ/NS 0.45% 500 ML IV PRN (13:27)
[2019-05-15] MEDS ORDERED: MICRO K EXTEN CAP 10 MEQ PO PRN (13:27)
[2019-05-15] MEDS ORDERED: K-DUR TAB 20 MEQ PO PRN (13:27)
--- NOTE | 2019-05-15 13:45 | RAD ---
HISTORY: Chest pain. Prior history of GERD, hypertension, skin cancer. 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 Trachea is midline. There is still [id number] deviation of the trachea. Patient has a known left thyroid mass. Heart size is upper normal with aortic uncoiling and atherosclerotic calcification of the aortic arch. There is hyperinflation of the lungs with increased interstitial markings bilaterally. Findings have the appearance of COPD. No infiltrate, CHF or pleural fluid is seen. There is no evidence of pneumothorax. There is a thoracolumbar scoliosis present. IMPRESSION: COPD without acute cardiopulmonary disease. Hypertensive configuration. Reported By:
[2019-05-15 15:02] LABS: CKMB % 2.4 % (<4); CREATINE KINASE 41 Units/L (26-192); CREATINE KINASE MB < 1.0 ng/mL (0-4.0); TROPONIN I < 0.02 ng/mL (0-1.5)
[2019-05-15] MEDS: MAGNESIUM SULFATE 1 GRAM/100 mL PREMIX 1 GM/100 ML BAG IV PRN ×2 (15:16→17:07)
--- NOTE | 2019-05-15 15:29 | CT ---
CT CHEST WITH IV CONTRAST HISTORY: Chest pain and shortness of breath Comparison: None Technique: Multiple axial images of the chest were obtained from the thoracic inlet to the upper abdomen after the administration of IV contrast.Dose reduction techniques including Automated Exposure Control (AEC) and adjustment of mA and kV were utlized. Findings: Cardiomegaly. No pericardial effusion. Large left thyroid nodule. No suspicious mediastinal or axillary lymph nodes. Although not optimized to detect pulmonary embolism, no large central pulmonary emboli are seen. No focal consolidations, pleural effusions or pneumothorax. Moderate COPD and moderate bibasilar fibrosis. Airways are patent. No suspicious pulmonary nodules or masses. Multiple simple appearing hepatic cysts.. No aggressive osseous lesions. IMPRESSION: 1. Moderate COPD and fibrosis without acute abnormality. 2. Cardiomegaly. Reported By:
--- NOTE | 2019-05-15 16:13 | DR.UPDATE ---
H&P Update History and Physical Update: History and Physical reviewed and patient examined. Changes noted: Yes with the following: WAS SEEN IN THE OFFICE TODAY FOR COMPLAINTS OF SHORTNESS OF BREATH AND EPIGASTRIC/CHEST PAIN. WE ADMITTED PATIENT TO THE HOSPITAL FOR FURTHER EVALUATION AND TREATMENT. ON ADMISSION, VITALS WERE 98.3-72-28-100%-114. LABS WERE OBTAINED. ABNORMAL LAB VALUES INCLUDE THE FOLLOWING: HGB 11.6, HCT 33.5, D-DIMER 912, SODIUM 135, POTASSIUM 3.4, MAGNESIUM 1.5, ALBUMIN 3.1. CARDIAC ENZYMES WITHIN NORMAL LIMITS. ABG REVEALED: PH 7.560, PC02 28.0, PC02 67.0, HC03 25.1, 02 SATURATION 96.0, BASE EXCESS 3.6. EKG REVEALED: SINUS RHYTHM WITH HR 72. CHEST XRAY REVEALED: COPD WITHOUT ACUTE CARDIOPULMONARY DISEASE. HYPERTENSIVE CONFIGURATION. CHEST CT REVEALED: MODERATE COPD AND FIBROSIS WITHOUT ACUTE ABNORMALITY. CARDIOMEGALY. SHE WAS STARTED ON NS AT 80 ML/HR, RESPIRATORY TX, SUPPLEMENTAL OXYGEN, MORPHINE 1-2MG IV Q4H PRN, POTASSIUM PROTOCOL, AND THE MAGNESIUM PROTOCOL. WE PLAN TO FOLLOW UP WITH AM LABS AND CONTINUE TO MONITOR.
[2019-05-15] MEDS: DUONEB 0.5 MG/3 MG NEB SCH ×2 (17:11→20:14)
[2019-05-15 18:49] LABS: CKMB % 2.4 % (<4); CREATINE KINASE 42 Units/L (26-192); CREATINE KINASE MB < 1.0 ng/mL (0-4.0); TROPONIN I < 0.02 ng/mL (0-1.5)
[2019-05-15] MEDS: PULMICORT NEB TX 0.5 MG NEB SCH (20:14)
[2019-05-15 21:18] LABS: BILIRUBIN,URINE NEGATIVE (NEGATIVE); BLOOD/HEMOGLOBIN,URINE NEGATIVE (NEGATIVE); GLUCOSE, URINE NEGATIVE (NEGATIVE); KETONES,URINE NEGATIVE (NEGATIVE); LEUKOCYTE ESTERASE ,URINE NEGATIVE (NEGATIVE); NITRITES,URINE NEGATIVE (NEGATIVE); PROTEIN,URINE NEGATIVE (NEGATIVE); UROBILINOGEN,URINE NORMAL (NORMAL)
[2019-05-15 21:20] LABS: APPEARANCE,URINE CLEAR (CLEAR); COLOR,URINE PALE YELLOW (YELLOW)
[2019-05-16] MEDS: NS 1000 ML 1,000 ML IV SCH ×2 (01:39)
[2019-05-16] MEDS ORDERED: TYLENOL 325 MG TAB PO ONE (03:24)
[2019-05-16] MEDS ORDERED: TYLENOL 325 MG TAB PO PRN (03:28)
[2019-05-16 05:20] LABS: BASOPHILS % (AUTO) 0.6 % (0.2-1.0); EOSINOPHILS # (AUTO) 0.1 x10^3/uL (0.0-0.2); EOSINOPHILS % (AUTO) 1.4 % (0.9-2.9); HEMATOCRIT 30.2 % (36.0-47.0); HEMOGLOBIN 10.6 g/dL (12.0-16.0); LYMPHOCYTES # (AUTO) 1.3 X10^3/uL (1.3-2.9); LYMPHOCYTES % (AUTO) 29.4 % (21.0-51.0); MEAN CORPUSCULAR HEMOGLOBIN 30.5 pg (27.0-34.0); MEAN CORPUSCULAR HGB CONC 35.1 g/dL (33.0-35.0); MEAN CORPUSCULAR VOLUME 86.8 fL (80.0-100.0); MEAN PLATELET VOLUME 7.4 fL (7.4-11.0); MONOCYTES # (AUTO) 0.6 x10^3/uL (0.3-0.8); MONOCYTES % (AUTO) 12.5 % (0.0-13.0); NEUTROPHILS # (AUTO) 2.5 x10^3/uL (2.2-4.8); NEUTROPHILS % (AUTO) 56.1 % (42.0-75.0); PLATELET COUNT 222 X10^3/uL (150.0-450.0); RED BLOOD COUNT 3.47 X10^6/uL (3.5-5.4); RED CELL DISTRIBUTION WIDTH 14.3 % (11.6-16.5); WHITE BLOOD COUNT 4.5 X10^3/uL (3.6-10.0)
[2019-05-16 05:32] LABS: ALANINE AMINOTRANSFERASE 15 Units/L (12-78); ALBUMIN 2.6 g/dL (3.4-5.0); ALKALINE PHOSPHATASE 43 Units/L (46-116); ASPARTATE AMINO TRANSFERASE 15 Units/L (15-37); BLOOD UREA NITROGEN 6 mg/dL (7-18); CALCIUM 7.4 mg/dL (8.5-10.1); CARBON DIOXIDE 22.6 mmol/L (21-32); CHLORIDE 104 mmol/L (98-107); COR CA(FOR HYPOALB) 8.5 mg/dL (8.5-10.1); CREATININE 0.67 mg/dL (0.55-1.02); SODIUM 136 mmol/L (136-145); TOTAL PROTEIN 5.5 g/dL (6.4-8.2); eGFR NON BLACK RACES > 60 (>60)
[2019-05-16] MEDS: DUONEB 0.5 MG/3 MG NEB SCH ×2 (09:05→12:18)
[2019-05-16] MEDS: PULMICORT NEB TX 0.5 MG NEB SCH (09:06)
--- NOTE | 2019-05-16 11:42 | RAD ---
HISTORY: Shortness of breath Study: Single view of the chest. Comparison: Chest CT 1 day prior Findings: Cardiomegaly. No focal consolidations, pleural effusions or pneumothorax. Osseous structures demonstrate no acute abnormality. Bilateral hyper expansion with coarsening of interstitial markings. IMPRESSION: 1. No acute cardiopulmonary process. 2. Findings of COPD. Reported By:
[2019-05-16 11:48] VITALS: BP 110/53
== END 2019-05-16 13:00 | disposition home or self-care (01) ==
LOC: ICU
PROVIDERS: ADMIT Internal Medicine; ATTEND Internal Medicine
DX: R06.02 Shortness of breath; J44.9 Chronic obstructive pulmonary disease, unspecified; I51.7 Cardiomegaly; D64.9 Anemia, unspecified; Z79.01 Long term (current) use of anticoagulants; E05.90 Thyrotoxicosis, unspecified without thyrotoxic crisis or storm; E78.2 Mixed hyperlipidemia; R07.89 Other chest pain; I10 Essential (primary) hypertension
CPT/HCPCS: 36415; 36600; 71010; 71045; 71260; 80053; 81003; 82550; 82553; 82803; 83735; 84484; 85025; 85378; 85610; 85730; 93005; 94640; 96367; 96374; A4216; A4222; G0378; J2270; J3475; J3490; J7030; J7620; J7626

== ENCOUNTER 2019-08-14 11:14 | Observation (INO) ==
[2019-08-14 11:40] VITALS: BMI 24.6
[2019-08-14] MEDS ORDERED: ASPIRIN 81 MG CHEWTAB PO ONE (12:04)
--- NOTE | 2019-08-14 12:04 | DR.CP ---
HPI Time Seen Time Seen by Provider: 08/14/19 11:44 PCP Primary Care Physician: STEFAN HPI Comment HPI Comment: PATIENT IS 84YR OLD FEMALE HERE IN ER VIA EMS FOR CHEST PAIN. PATIENT WAS IN THE YARD AND HAD SEVERE CHEST PAIN. THE PAIN IS IN THE LEFT CHEST 8/10 PRESSURE AND HEAVINESS THAT RADIATES TO LEFT JAW.NO SIMILAR PAIN PREVIOUSLY. PAIN ASSOCIATED WITH WEAKNESS, PALPITATION AND SOB. NO URI SYMPTOMS. PATIENT FELT SHE WAS HAVING A HEART ATTACK. PAIN HAVE IMPROVED. Complaint Chief Complaint Doctor Comments: CHEST PAIN, PALPITATION AND SOB. Chief Complaint:: EMS RESPONDED TO CHEST PAIN,UPON ARRIVAL PT TOLD EMS THAT SHE WAS IN YARD. PT HAD SEVERE CHEST PAIN THAT RADIATED TO LEFT JAW AND BACK. SHORT OF BREATHE. INTIAL OXYGEN LEVEL WAS 90 % WHEN EMS ARRIVED. O2 AT 2 LPM WITH OXYGEN LEVEL AT 99%. PT STATES TO NURSE THAT I JUST HAD SEVERE CHEST PAIN I FELT LIKE I WAS HAVING A HEART ATTACK. PT HEART RATE WAS 110-150 ON MONITOR. PT BLOOD PRESSURE VIA [id number]/68 HR IN THE 70'S ON TWELVE LEAD Reviewed Nurses Notes Review: Yes Source History Provided: Patient and Family Member Mode of Arrival Mode of Arrival: EMS Timing Onset of Chief Complaint: 08/14/19 Came on: Suddenly Pain: Resolved Duration Duration: Since Onset Duration: Minutes Location Location of Chest Pain: Left and Chest Chest Pain Radiation Location: Left Jaw and Back Context Onset: With light exertion Cardiac Risk Factors: None PE Risk Factors: None History of: None Prehospital Care: Oxygen and IV Quality Quality: Pressure like and Heavy Severity Severity: Moderate Modifying Factors Worsens: Nothing Impoves: Position Associated Signs and Symptoms Associated Signs and Symptoms: Shortness of Breath Other History Other History: THYROID DISEASE. PMH PMH Past Medical History: Yes Past Medical History: GERD Past Surgical History: Yes Surgical History: Abdominal Surgery, [employer] Surgery and Ortho Surgery Family History History of Family Medical Conditions: Yes Family Medical History: Cancer, [place] and Hypertension Social History Does any household member use tobacco: No Alcohol Use: None Do you use any recreational Drugs:: No Lives With: Spouse and Family Lives Where: Home infectious screening In the last 2 months have you had wt loss of >10#?: NO Have you had fever, night sweats or hemotysis?: No Have you traveled outside the country in the last 6 months?: No Isolation: Standard ROS Review of Systems Constitutional: See HPI and Weakness; negative Fever Eyes: No Symptoms Reported and See HPI ENTM: No Symptoms Reported and See HPI Respiratoy: See HPI and Short of Breath; negative Wheezing Cardiovascular: See HPI, Chest Pain and Palpitations; negative Edema Gastrointestinal/Abdominal: No Symptoms Reported and See HPI; negative Abdominal Pain, Nausea and Vomiting Genitourinary: No Symptoms Reported and See HPI; negative Dysuria, Frequency and Hematuria Neurological: See HPI and Weakness; negative Dizziness Musculoskeletal: No Symptoms Reported and See HPI; negative Back Pain and Muscle Pain Integumentary: No Symptoms Reported and See HPI; negative Rash and Juandice Hematologic/Lymphatic: Easy Bleeding and Easy Bruising; negative Swollen Glands Endocrine: No Symptoms Reported; negative Increased Thirst, Increased Urine and Decreased Appetite Psychiatric: No Symptoms Reported and See HPI All Other Systems: Reviewed and Negative PE Vitals Vitals: Temperature 97.7 F Pulse Rate 62 Respiratory Rate 32 Blood Pressure [Left Arm] 121/56 Blood Pressure [Right Arm] 130/58 Blood Pressure 124/60 O2 Sat by Pulse Oximetry 100 General Limitations: No Limitations General Appearance: Alert and In No Apparent Distress Head Head Exam: Normal Inspection and Atraumatic Eyes Eye exam: Normal Appearance, PERRL and Scleral Icterus; negative Conjunctival Injection ENT ENT Exam: Normal Exam, Normal Oropharynx, Normal External Ear Exam and TM's Normal Bilaterally Chest Chest Inspection: Normal Inspection and Symmetric Chest Wall Rise; negative Tenderness Respiratory Respiratory Exam: Normal Lung Sounds Bilat; negative Accessory Muscle Use, Chest Wall Tenderness and Respiratory Distress Respiratory Exam: Bilateral: Clear to Auscultation Cardiovascular Cardiovascular Exam: Regular Rate, Normal Rhythm and Normal Heart Sounds; negative Systolic Murmur and Diastolic Murmur Pulse: Normal Edema: Normal Abdominal Exam Abdominal Exam: Normal Inspection, Normal Bowel Sounds and Soft; negative Tenderness Extremities Extremities Exam: Normal Inspection and Normal Capillary Refill; negative Tenderness, Edema and Calf Tenderness Back Back Exam: Normal Inspection Neurologic Neurological Exam: Alert, Oriented X3 and CN II-XII Intact; negative Motor Sensory Deficit Psychiatric Psychiatric Exam: Normal Affect and Normal Mood Skin Skin Exam: Warm, Dry, Intact and Normal Color MDM Differential Diagnosis Differential Diagnosis: Angina, Chest Wall Pain, CHF, Costochondritis, Myocardial Infarction, Pericarditis, Pleuritis, Pneumonia and Pneumothorax COURSE Treatment Treatment: SEE ORDERS. ASA 81MG TAB, 4TABS PO. ROR Labs Reviewed Laboratory Results Reviewed?: Yes Result Diagrams: 08/15/19 04:56 08/15/19 04:56 Laboratory: WBC 6.0 X10^3/uL (3.6-10.0) 08/14/19 12:12 RBC 3.96 X10^6/uL (3.5-5.4) 08/14/19 12:12 Hgb 10.7 g/dL (12.0-16.0) L 08/14/19 12:12 Hct 32.2 % (36.0-47.0) L 08/14/19 12:12 MCV 81.2 fL (80.0-100.0) 08/14/19 12:12 MCH 27.0 pg (27.0-34.0) 08/14/19 12:12 MCHC 33.3 g/dL (33.0-35.0) 08/14/19 12:12 RDW 14.3 % (11.6-16.5) 08/14/19 12:12 Plt Count 259 X10^3/uL (150.0-450.0) 08/14/19 12:12 MPV 6.8 fL (7.4-11.0) L 08/14/19 12:12 Neut % (Auto) 60.6 % (42.0-75.0) 08/14/19 12:12 Lymph % (Auto) 27.1 % (21.0-51.0) 08/14/19 12:12 [place] % (Auto) 10.1 % (0.0-13.0) 08/14/19 12:12 Eos % (Auto) 1.7 % (0.9-2.9) 08/14/19 12:12 Baso % (Auto) 0.5 % (0.2-1.0) 08/14/19 12:12 Neut # (Auto) 3.6 x10^3/uL (2.2-4.8) 08/14/19 12:12 Lymph # (Auto) 1.6 X10^3/uL (1.3-2.9) 08/14/19 12:12 [place] # (Auto) 0.6 x10^3/uL (0.3-0.8) 08/14/19 12:12 Eos # (Auto) 0.1 x10^3/uL (0.0-0.2) 08/14/19 12:12 Baso # (Auto) 0.0 X10^3/uL (0.0-0.1) 08/14/19 12:12 Absolute Nucleated RBC 0.0 /100WBC 08/14/19 12:12 Sodium 133 mmol/L (136-145) L 08/14/19 12:12 Corrected Sodium TNP 08/14/19 12:12 Potassium 4.1 mmol/L (3.5-5.1) 08/14/19 12:12 Chloride 96 mmol/L (98-107) L 08/14/19 12:12 Carbon Dioxide 27.6 mmol/L (21-32) 08/14/19 12:12 BUN 14 mg/dL (7-18) 08/14/19 12:12 Creatinine 0.60 mg/dL (0.55-1.02) 08/14/19 12:12 Est GFR (MDRD) Af Amer > 60 (>60) 08/14/19 12:12 Est GFR (MDRD) Non-Af > 60 (>60) 08/14/19 12:12 Glucose 92 mg/dL (65-99) 08/14/19 12:12 Calcium 8.8 mg/dL (8.5-10.1) 08/14/19 12:12 Corrected Calcium 9.4 mg/dL (8.5-10.1) 08/14/19 12:12 Total Bilirubin 0.20 mg/dL (0.2-1.0) 08/14/19 12:12 AST 20 Units/L (15-37) 08/14/19 12:12 ALT 12 Units/L (12-78) 08/14/19 12:12 Alkaline Phosphatase 68 Units/L (46-116) 08/14/19 12:12 Creatine Kinase 41 Units/L (26-192) 08/14/19 12:12 CK-MB (CK-2) < 1.0 ng/mL (0-4.0) 08/14/19 12:12 CK/CKMB % Calc 2.4 % (<4) 08/14/19 12:12 Troponin I < 0.02 ng/mL (0-1.5) 08/14/19 12:12 Total Protein 7.1 g/dL (6.4-8.2) 08/14/19 12:12 Albumin 3.2 g/dL (3.4-5.0) L 08/14/19 12:12 Globulin 3.9 g/dL (2.5-4.5) 08/14/19 12:12 Albumin/Globulin Ratio 0.8 Ratio (1.1-2.1) L 08/14/19 12:12 TSH 3rd Generation 3.219 uIU/mL (0.358-3.74) 08/14/19 12:12 XRAY XRAY Interpreted by: Radiologist XRAY Findings: REPORT NOTED AND DISCUSSED WITH PATIENT. EKG Rate: 160 [place]: Normal Rhythm: ST Block: None Hypertrophy: None Opioid Opioid Risk Tool Age ([place] box if 16-45): No History of Preadolescent Sexual Abuse: No Total: 0 Total Score Risk Category: Low Risk Copyright: [facility] predicting aberrant behaviors Diagnosis Discharge Problem: Chest pain, rule out acute myocardial infarction Instructions Instructions: Cholesterol Content in Foods Fall Prevention in the Home, Adult, [id number] Nonspecific Chest Pain, Ctwq-by-Rmpe Aspirin and Your Heart Preventing High Cholesterol High Cholesterol Forms: Patient Portal
[2019-08-14] MEDS ORDERED: ASPIRIN ONE (12:10)
--- NOTE | 2019-08-14 12:18 | RAD ---
HISTORYChest pain and shortness of breathSTUDYPortable AP chestCOMPARISONSeptember 2018FINDINGSThe lungs appear hyperinflated but are grossly clear. The heart size is normal with a tortuous aorta. There is no edema or effusion. There is a right shoulder joint total prosthesis partially seen.IMPRESSIONNo evidence for acute cardiopulmonary disease.Electronically signed by: AMANDA ARRINGTON (Aug 14, 2019 12:17:35)
[2019-08-14 12:19] LABS: BASOPHILS % (AUTO) 0.5 % (0.2-1.0); EOSINOPHILS # (AUTO) 0.1 x10^3/uL (0.0-0.2); EOSINOPHILS % (AUTO) 1.7 % (0.9-2.9); HEMATOCRIT 32.2 % (36.0-47.0); HEMOGLOBIN 10.7 g/dL (12.0-16.0); LYMPHOCYTES # (AUTO) 1.6 X10^3/uL (1.3-2.9); LYMPHOCYTES % (AUTO) 27.1 % (21.0-51.0); MEAN CORPUSCULAR HGB CONC 33.3 g/dL (33.0-35.0); MEAN CORPUSCULAR VOLUME 81.2 fL (80.0-100.0); MEAN PLATELET VOLUME 6.8 fL (7.4-11.0); MONOCYTES # (AUTO) 0.6 x10^3/uL (0.3-0.8); MONOCYTES % (AUTO) 10.1 % (0.0-13.0); NEUTROPHILS # (AUTO) 3.6 x10^3/uL (2.2-4.8); NEUTROPHILS % (AUTO) 60.6 % (42.0-75.0); PLATELET COUNT 259 X10^3/uL (150.0-450.0); RED BLOOD COUNT 3.96 X10^6/uL (3.5-5.4); RED CELL DISTRIBUTION WIDTH 14.3 % (11.6-16.5)
[2019-08-14] MEDS ORDERED: ASPIRIN 81 MG CHEWTAB ONE (12:29)
[2019-08-14 12:42] LABS: ALANINE AMINOTRANSFERASE 12 Units/L (12-78); ALBUMIN 3.2 g/dL (3.4-5.0); ALKALINE PHOSPHATASE 68 Units/L (46-116); ASPARTATE AMINO TRANSFERASE 20 Units/L (15-37); BLOOD UREA NITROGEN 14 mg/dL (7-18); CALCIUM 8.8 mg/dL (8.5-10.1); CARBON DIOXIDE 27.6 mmol/L (21-32); CHLORIDE 96 mmol/L (98-107); CKMB % 2.4 % (<4); COR CA(FOR HYPOALB) 9.4 mg/dL (8.5-10.1); CREATINE KINASE 41 Units/L (26-192); CREATINE KINASE MB < 1.0 ng/mL (0-4.0); SODIUM 133 mmol/L (136-145); TOTAL PROTEIN 7.1 g/dL (6.4-8.2); TROPONIN I < 0.02 ng/mL (0-1.5); eGFR NON BLACK RACES > 60 (>60)
[2019-08-14 16:34] LABS: BILIRUBIN,URINE NEGATIVE (NEGATIVE); BLOOD/HEMOGLOBIN,URINE NEGATIVE (NEGATIVE); GLUCOSE, URINE NEGATIVE (NEGATIVE); KETONES,URINE NEGATIVE (NEGATIVE); LEUKOCYTE ESTERASE ,URINE NEGATIVE (NEGATIVE); NITRITES,URINE NEGATIVE (NEGATIVE); PH,URINE 6.5 (5.0 - 8.0); PROTEIN,URINE NEGATIVE (NEGATIVE); UROBILINOGEN,URINE NORMAL (NORMAL)
[2019-08-14 16:40] LABS: APPEARANCE,URINE CLEAR (CLEAR); COLOR,URINE YELLOW (YELLOW)
[2019-08-14] MEDS ORDERED: NS 1000 ML 1,000 ML ONE (17:07)
[2019-08-14] MEDS: NS 1000 ML 1,000 ML IV SCH ×2 (17:15→17:20)
[2019-08-14 18:32] LABS: CKMB % 2.9 % (<4); CREATINE KINASE 35 Units/L (26-192); CREATINE KINASE MB < 1.0 ng/mL (0-4.0); TROPONIN I < 0.02 ng/mL (0-1.5)
[2019-08-14] MEDS ORDERED: MOBIC TAB 15 MG PO PRN (20:08)
[2019-08-14] MEDS ORDERED: LEVSIN SYRUP PO PRN (20:08)
[2019-08-14] MEDS ORDERED: ANTIVERT TAB 25 MG PO PRN (20:08)
[2019-08-14] MEDS ORDERED: ZANAFLEX PO PRN (20:08)
[2019-08-14] MEDS ORDERED: PATIENT'S HOME MEDICATION (Umeclidinium-Vilanterol [Anoro Ellipta] 1 INH) IN SCH (20:08)
[2019-08-14] MEDS ORDERED: TYLENOL 325 MG TAB PO PRN (20:38)
[2019-08-15 00:49] LABS: CKMB % 3.1 % (<4); CREATINE KINASE 32 Units/L (26-192); CREATINE KINASE MB < 1.0 ng/mL (0-4.0); TROPONIN I < 0.02 ng/mL (0-1.5)
[2019-08-15] MEDS: NS 1000 ML 1,000 ML IV SCH (05:04)
[2019-08-15 05:22] LABS: BASOPHILS % (AUTO) 0.8 % (0.2-1.0); EOSINOPHILS # (AUTO) 0.1 x10^3/uL (0.0-0.2); EOSINOPHILS % (AUTO) 2.8 % (0.9-2.9); HEMATOCRIT 29.6 % (36.0-47.0); LYMPHOCYTES # (AUTO) 1.5 X10^3/uL (1.3-2.9); LYMPHOCYTES % (AUTO) 33.7 % (21.0-51.0); MEAN CORPUSCULAR HEMOGLOBIN 27.5 pg (27.0-34.0); MEAN CORPUSCULAR HGB CONC 33.6 g/dL (33.0-35.0); MEAN CORPUSCULAR VOLUME 81.9 fL (80.0-100.0); MEAN PLATELET VOLUME 7.7 fL (7.4-11.0); MONOCYTES # (AUTO) 0.6 x10^3/uL (0.3-0.8); MONOCYTES % (AUTO) 13.4 % (0.0-13.0); NEUTROPHILS # (AUTO) 2.2 x10^3/uL (2.2-4.8); NEUTROPHILS % (AUTO) 49.3 % (42.0-75.0); PLATELET COUNT 238 X10^3/uL (150.0-450.0); RED BLOOD COUNT 3.62 X10^6/uL (3.5-5.4); RED CELL DISTRIBUTION WIDTH 14.3 % (11.6-16.5); WHITE BLOOD COUNT 4.4 X10^3/uL (3.6-10.0)
[2019-08-15 05:38] LABS: ALANINE AMINOTRANSFERASE 10 Units/L (12-78); ALBUMIN 2.6 g/dL (3.4-5.0); ALKALINE PHOSPHATASE 64 Units/L (46-116); ASPARTATE AMINO TRANSFERASE 16 Units/L (15-37); BLOOD UREA NITROGEN 11 mg/dL (7-18); CALCIUM 8.3 mg/dL (8.5-10.1); CARBON DIOXIDE 27.4 mmol/L (21-32); CHLORIDE 101 mmol/L (98-107); CHOL/HDL RATIO 2.5 (0.0-5.0); CHOLESTEROL 155 mg/dL (0-200); COR CA(FOR HYPOALB) 9.4 mg/dL (8.5-10.1); CREATININE 0.57 mg/dL (0.55-1.02); HDL CHOLESTEROL 62 mg/dL (40-60); MAGNESIUM 1.8 mg/dL (1.7-2.9); SODIUM 135 mmol/L (136-145); TOTAL PROTEIN 6.4 g/dL (6.4-8.2); TRIGLYCERIDES 37 mg/dL (0-150); eGFR NON BLACK RACES > 60 (>60)
[2019-08-15] MEDS ORDERED: MAGNESIUM SULFATE 1 GRAM/100 mL PREMIX 1 GM/100 ML BAG IV PRN (05:45)
[2019-08-15] MEDS ORDERED: K-DUR TAB 20 MEQ PO PRN (05:45)
[2019-08-15] MEDS ORDERED: POTASSIUM CHL 60 MEQ/NS 0.45% 500 ML IV PRN (05:45)
[2019-08-15] MEDS ORDERED: KLOR-CON PO PRN (05:45)
[2019-08-15] MEDS ORDERED: MICRO K EXTEN CAP 10 MEQ PO PRN (05:45)
[2019-08-15] MEDS ORDERED: POTASSIUM CHLORIDE LIQ 20 MEQ UDC PO PRN (05:45)
[2019-08-15] MEDS ORDERED: POTASSIUM CHL 40 MEQ/NS 0.45% 500 ML IV PRN (05:45)
[2019-08-15] MEDS ORDERED: K-RIDER 10 MEQ/NS 100 ML 10 MEQ/100 ML BAG IV PRN (05:45)
[2019-08-15] MEDS ORDERED: TAPAZOLE ONE (08:09)
[2019-08-15] MEDS ORDERED: DUONEB 0.5 MG/3 MG (3 mL) NEB SCH (09:00)
[2019-08-15] MEDS ORDERED: PRENATAL PLUS PO SCH (09:00)
[2019-08-15] MEDS ORDERED: PROTONIX TAB 40 MG PO SCH (09:00)
[2019-08-15] MEDS ORDERED: IRON FOLIC ACID MV MIN CMB PO SCH (09:00)
[2019-08-15] MEDS ORDERED: TAPAZOLE PO SCH (09:00)
[2019-08-15] MEDS ORDERED: VITAMIN D (1.25MG) PO SCH (09:45)
[2019-08-15] MEDS ORDERED: LOVENOX INJ 40 MG SYR SC SCH (11:00)
[2019-08-15 12:26] VITALS: BP 115/55
--- NOTE | 2019-08-15 12:42 | VAS ---
HISTORYDizzinessSTUDYCarotid duplex ultrasoundCOMPARISONNoneFINDINGSImages show interval thickening but no significant plaque formation. There is a small calcified plaque in the left carotid bulb.There is antegrade flow in the vertebral arteries, left slightly dominant.Peak systolic velocity in the right internal carotid artery is 100.8 cm/second compared to 61.5 in the distal right common carotid artery for a ratio of 1.6.Peak systolic velocity in the left internal carotid artery is 90.1 and in the distal left common carotid artery is 73.4 for a ratio of 1.2.IMPRESSIONNo evidence for significant carotid stenosis. Small calcified plaque in the left carotid bulb.Electronically signed by: AMANDA ARRINGTON (Aug 15, 2019 12:41:04)
--- NOTE | 2019-08-16 14:56 | CT ---
CARDIAC CTA W/CALC SCORECLINICAL INDICATION: chest painCOMPARISON: [None]PROCEDURE: Gated images of the coronary arteries were obtained before and after the administration of IV contrast. Coronary artery calcium scoring was performed. Dose reduction techniques including Automated Exposure Control (AEC) and adjustment of mA and kV were utlized.FINDINGS:Coronary CTA-LM:No significant stenosis.LAD: No significant stenosis.LCX: No significant stenosis.RCA: No significant stenosis.Coronary calcium scoring- 1LM: 1LAD: 0LCX: 0RCA: 0IMPRESSION:1. No evidence of significant coronary artery stenosis.2. Calcium score of 1. This places the patient at approximately the 0-25th percentile for females of equivalent age. Minimal identifiable plaque. Less than 10% risk of coronary artery disease.Electronically signed by: TJ IRVING (Aug 16, 2019 14:54:51)
--- NOTE | 2019-08-18 11:21 | DR.CARTERS ---
Short Stay Summary - Admission Date Date of Admission: 10/15/18 - Discharge Date Discharge Date: 10/16/18 - Admission Diagnoses (1) Chest pain, rule out acute myocardial infarction Status: Acute - Hospital Course Hospital Course: IS A 84 YEAR OLD PATIENT OF OURS WHO PRESENTED TO THE ER VIA EMS WITH REPORTS OF CHEST PAIN. PAIN STARTED WHILE SHE WAS WORKING IN THE YEARD. PAIN RADIATED OT THE LEFT JAW AND BACK. SHE ALSO REPORTED SHORTNESS OF BREATH. ON EMS ARRIVAL TO SCENE, OXYGEN SATURATION WAS 90%. IT INCREASED TO 99% ON NC AT 2LPM. ON ARRIVAL TO THE ER, VITALS WERE 97.4-253-72-100%-147/77. LABS WERE OBTAINED. ABNORMAL LAB VALUES INCLUDE THE FOLLOWING: HGB 10.7, HCT 32.2, SODIUM 133, CHLORIDE 96, ALBUMIN 3.2. A CHEST XRAY WAS OBTAINED AND REVEALED: NO EVIDENCE FOR ACUTE CARDIOPULMONARY DISEASE. EKG REVEALED: TACHYCARDIA WITH WIDE COMPLEX. SHE WAS GIVEN ASA 325MG PO X 1 IN THE ER. SHE WAS ADMITTED FOR FURTHER EVALUATION AND TREATMENT OF CHEST PAIN RULE OUT ACUTE CT. WE PLANNED TO OBTAIN SERIAL CARDIAC ENZYMES AND EKGS. WE STARTED NORMAL SALINE AT KVO. OTHERWISE, WE PLANNED TO FOLLOW UP WITH AM LABS AND CONTINUE TO MONITOR. ON THE MORNING FOLLOWING ADMISSION, PATIENT IS ALERT AND ORIENTED, LYING IN BED ON MORNING ROUNDS. SHE DENIED CHEST PAIN THIS MORNING, BUT DID REPORT SOME WEAKNESS AT TIMES. SHE DENIED SHORTNESS OF BREATH. HER VITALS ON MORNING ROUNDS WERE 99.3-62-20-96%-115/56. LABS WERE OBTAINED. ABNORMAL LAB VALUES INCLUDED THE FOLLOWING: HGB 10.0, HCT 29.6, SODIUM 135, CALCIUM 8.3, ALT 10, ALBUMIN 2.6, HDL 62. CARDIAC ENZYMES HAVE BEEN WITHIN NORMAL LIMITS. NO CHANGES NOTED TO EKGS. A CARDIAC CTA WAS OBTAINED THIS MORNING AND REVEALED: 1. No evidence of significant coronary artery stenosis. 2. Calcium score of 1. This places the patient at approximately the 0-25th percentile for females of equivalent age. Minimal identifiable plaque. Less than 10% risk of coronary artery disease. CORONARY ARTERY US REVEALED: No evidence for significant carotid stenosis. Small calcified plaque in the left carotid bulb. ECHO REVEALED AN EJECTION FRACTION OF 52%. WE PLANNED FOR DISCHARGE. INSTRUCTIONS FOR MEDICATIONS AND FOLLOW UP WERE DISCUSSED WITH PATIENT AND FAMILY. THEY VERBALIZED UNDERSTANDING OF ALL ORDERS. SHE WAS DISCHARGED HOME WITH FAMILY IN STABLE CONDITION WITH NEW PRESCRIPTIONS FOR ECOTRIN 325MG PO DAILY AND CRESTOR 10MG PO HS. SHE IS INSTRUCTED TO FOLLOW UP IN THE OFFICE ON 08/21/19 AT 2:00. - Discharge Medications Discharge Medications: Home Medication List Anoro Ellipta 1 inh INHALATION Q24H 08/14/19 [History] Citralcal 1 cap PO DAILY 08/14/19 [History] Ferrocite Plus 1 tab PO DAILY 08/14/19 [History] Juice Festiv 1 tab PO DAILY 08/14/19 [History] Prevagen 50 mcg PO DAILY 08/14/19 [History] Womens Ultra Estuardo 1 tab PO DAILY 08/14/19 [History] Zyrtec 10 mg PO PRN PRN 08/14/19 [History] ergocalciferol (vitamin D2) [Vitamin D2] 1 mcg PO .WEEKLY 08/14/19 [History] magnesium oxide [MagOx] 400 mg PO BID 08/14/19 [History] meloxicam 15 mg PO DAILY PRN 08/14/19 [History] methimazole 15 mg PO DAILY 08/14/19 [History] metoprolol tartrate 25 mg PO HS 08/14/19 [History] pantoprazole 40 mg PO DAILY PRN 08/14/19 [History] tramadol [Ultram] 50 mg PO Q6H PRN 08/14/19 [History] aspirin [Ecotrin] 325 mg PO QDAY #90 tab 08/15/19 [Rx] rosuvastatin [Crestor] 10 mg PO HS #30 tab 08/15/19 [Rx] Prescriptions: aspirin [Ecotrin] Eddie Cazares rosuvastatin [Crestor] Eddie Cazares Risks, benefits, and alternatives of opioids discussed: Yes Prescription drug monitoring program results: PDMP was not reviewed - Discharge Plan Disposition: HOME, SELF-CARE Condition: Stable Prescriptions: aspirin [Ecotrin] 325 mg PO QDAY #90 tab rosuvastatin [Crestor] 10 mg PO HS #30 tab - Follow up/Referrals Follow up/Referrals: Eddie Cazares [Primary Care Provider] - 08/21/19 2:00 pm - Instructions Instructions: Cholesterol Content in Foods, Fall Prevention in the Home, Adult, [id number], Nonspecific Chest Pain, [id number], Aspirin and Your Heart, Preventing High Cholesterol, High Cholesterol Additional Instructions: DIET TOLERATED. ACTIVITY TOLERATED. Forms: Patient Portal
== END 2019-08-15 15:25 | disposition home or self-care (01) ==
LOC: ER 11:14 → MED/SURG 11:14
PROVIDERS: ADMIT Internal Medicine; ATTEND Internal Medicine
DX: R06.02 Shortness of breath; R42 Dizziness and giddiness; R53.1 Weakness; R00.0 Tachycardia, unspecified; R26.89 Other abnormalities of gait and mobility; R94.31 Abnormal electrocardiogram [ECG] [EKG]; R07.89 Other chest pain; K21.9 Gastro-esophageal reflux disease without esophagitis
CPT/HCPCS: 36415; 71010; 71045; 75574; 80053; 80061; 81003; 82550; 82553; 83735; 84443; 84484; 85025; 93005; 93306; 93880; 94760; 99284; A4222; S0197; G0378; J3475; J3490; J7030; J7620

== ENCOUNTER 2019-12-11 19:18 | Inpatient (IN) ==
--- NOTE | 2019-12-11 20:03 | DR.DIZZY ---
HPI <CELI LAN - Last Filed: 12/11/19 23:54> Time seen Time Seen by Provider: 12/11/19 19:56 PCP Primary Care Physician: ROBIN CAGE HPI Comment HPI Comment: PATIENT IS 84YR OLD FEMALE IN ER WITH GENERALIZED WEAKNESS, ANOREXIA AND HYPOTENSION. PROGRESSIVE SYMPTOMS FOR SEVERAL DAYS. TODAY SYMPTOMS WORSE AND PATIENT IS HYPOTENSIVE. NO FEVER. DENIES DYSURIA OR CHEST PAIN OR VOMITING. Complaint Chief Complaint Doctor Comments: GENERALIZED WEAKNESS, ANOREXIA AND LOW BLOOD PRESSURE TIMES SEVERAL DAYS. Chief Complaint:: EMS TO PATIENT WHERE FAMILY C/O WEAKNESS, LESSENED INTAKE, DECREASED ACTIVITY. EMS STATES UPON ARRIVAL TO HOME, PATIENT'S HR WAS 72, O2 SAT = 91% ON RA, AND SBP = 98 COVID-19 Coronavirus risk:travel/contact w/high risk person: No Has patient experienced Coronavirus symptoms: No Nurses Notes Reviewed Nurses Notes Review: Yes Source History Provided: Patient and EMS Mode of Arrival Mode of Arrival: EMS Timing Onset of Chief Complaint: 12/10/19 Came on: Gradually Duration Duration: Constant Duration: Days Location of Weakness Weakness Location: Generalized Context Onset: At rest History of: None Stroke Symptoms: Dizziness Severity Severity: Abnormal activity level Modifying factors Worsens: Other (ACTIVITIES.) Associated signs and symptoms Associated Signs and Symptoms: Near Syncope, Vertigo and Weak PMH <CELI LAN - Last Filed: 12/11/19 23:54> PMH Past Medical History: Yes Past Medical History: Dementia Past Surgical History: No Surgical History: Abdominal Surgery, BUSINESS [employer]NA[employer] Surgery and Ortho Surgery Family History History of Family Medical Conditions: No Family Medical History: Cancer, MS and Hypertension Social History Alcohol Use: None Do you use any recreational Drugs:: No Lives With: Family Lives Where: Home Infectious screening In the last 2 months have you had wt loss of >10#?: NO Have you had fever, night sweats or hemotysis?: No Have you traveled outside the country in the last 6 months?: No Isolation: Standard ROS <CELI LAN - Last Filed: 12/11/19 23:54> Review of Systems Constitutional: No Symptoms Reported, See HPI, Weakness and Fatigue; negative Fever Eyes: No Symptoms Reported, See HPI and Blurred Vision ENTM: No Symptoms Reported, See HPI and Nose Congestion Respiratoy: No Symptoms Reported, See HPI, Moist Cough, Short of Breath and Wheezing Cardiovascular: No Symptoms Reported and See HPI; negative Chest Pain, Edema and Palpitations Gastrointestinal/Abdominal: No Symptoms Reported Genitourinary: No Symptoms Reported; negative Dysuria Neurological: No Symptoms Reported, See HPI, Headache, Weakness and Dizziness Musculoskeletal: No Symptoms Reported and See HPI Integumentary: No Symptoms Reported and See HPI Hematologic/Lymphatic: No Symptoms Reported Endocrine: No Symptoms Reported Psychiatric: No Symptoms Reported and See HPI All Other Systems: Reviewed and Negative Unable to Obtain Due To: Dementia PE <CELI RIKY - Last Filed: 12/11/19 23:54> Vital Signs Vitals: Temperature 96.7 F Pulse Rate 69 Respiratory Rate 14 Blood Pressure [Left Arm] 113/56 Blood Pressure [Right Arm] 115/55 Blood Pressure 132/75 O2 Sat by Pulse Oximetry 100 General Limitations: No Limitations General Appearance: Alert and In Distress Head Head Exam: Atraumatic Eyes Eye exam: PERRL; negative Scleral Icterus and Conjunctival Injection Pupils: Regular, Round: Bilateral and Reactive: Bilateral Sclera/Conjunctival: Normal Inspection: Bilateral ENT ENT Exam: Normal Oropharynx, Normal External Ear Exam and TM's Normal Bilaterally Neck Neck Exam: Normal Inspection and Trachea Midline; negative Tenderness and Lymphadenopathy Chest Chest Inspection: Normal Inspection and Symmetric Chest Wall Rise; negative Tenderness Respiratory Respiratory Exam: Normal Lung Sounds Bilat; negative Accessory Muscle Use, Chest Wall Tenderness and Respiratory Distress Respiratory Exam: Bilateral: Clear to Auscultation Cardiovascular Cardiovascular Exam: Regular Rate, Normal Rhythm and Normal Heart Sounds; negative Systolic Murmur and Diastolic Murmur Abdominal Exam Abdominal Exam: Normal Bowel Sounds and Soft; negative Tenderness Rectal Rectal Exam: Deferred Extremeties Extremities Exam: Normal Inspection and Normal Capillary Refill; negative Tenderness, Edema and Calf Tenderness Back Back Exam: negative (R) CVA Tenderness and (L) CVA Tenderness Neurologic Neurological Exam: Alert, Oriented X3 and CN II-XII Intact; negative Motor Sensory Deficit Speech: Fluid Speech Cranial Nerve Exam: EOM Function (II, III, IV, ): Normal, Facial Sensation (V): Normal, Facial Palsy (VII): Normal, Gag reflex (XI): Normal, Spinal Accessory Function (XI): Normal and Tongue Deviation: Normal Motor Strength - LUE: 5/5 Motor Strength - RUE: 5/5 Motor Strength - LLE: 5/5 Motor Strength - RLE: 5/5 Upper Motor Neuron Exam: Babinski Sign: Normal Psychiatric Psychiatric Exam: Normal Affect and Normal Mood Skin Skin Exam: Warm, Dry and Intact <Mari Rich - Last Filed: 12/17/19 00:29> Vital Signs Vitals: Temperature 96.7 F Pulse Rate 69 Respiratory Rate 14 Blood Pressure [Left Arm] 113/56 Blood Pressure [Right Arm] 115/55 Blood Pressure 132/75 O2 Sat by Pulse Oximetry 100 Chest Chest Inspection: Normal Inspection and Symmetric Chest Wall Rise Respiratory Respiratory Exam: Bilateral: Clear to Auscultation and Bilateral: Decreased Breath Sounds Extremeties Extremities Exam: Other (no edema) [facility] <CELI LAN - Last Filed: 12/11/19 23:54> Differential Diagnosis Differential Diagnosis: Anemia, CVA, Dehydration, Dysrhythmia, Electrolyte disorder, Hypoglycemia, Labyrinthitis, Meniere's disease, Myocardial infarction and Central Vertigo COURSE <CELI LAN - Last Filed: 12/11/19 23:54> Treatment Treatment: SEE ORDERS. PATIENT SIGN OUT TO DR. RICH. Education/Counseling Education/Counseling: Patient Educated On: Diagnosis and Needs for Follow Up <Mari Rich - Last Filed: 12/17/19 00:29> Consultation Consultation Comments: admission d/w Dr Barrington ABDALLA <CELI LAN - Last Filed: 12/11/19 23:54> Labs Reviewed Laboratory Results Reviewed?: Yes Result Diagrams: 12/15/19 05:22 12/15/19 05:22 Laboratory: 12/11/19 20:15 Blood Blood Culture - Final 12/11/19 20:07 Blood Blood Culture - Final WBC 7.8 X10^3/uL (3.6-10.0) 12/11/19 20:15 RBC 3.99 X10^6/uL (3.5-5.4) 12/11/19 20:15 Hgb 11.3 g/dL (12.0-16.0) L 12/11/19 20:15 Hct 33.0 % (36.0-47.0) L 12/11/19 20:15 MCV 82.8 fL (80.0-100.0) 12/11/19 20:15 MCH 28.4 pg (27.0-34.0) 12/11/19 20:15 MCHC 34.3 g/dL (33.0-35.0) 12/11/19 20:15 RDW 14.5 % (11.6-16.5) 12/11/19 20:15 Plt Count 236 X10^3/uL (150.0-450.0) 12/11/19 20:15 MPV 6.9 fL (7.4-11.0) L 12/11/19 20:15 Neut % (Auto) 73.7 % (42.0-75.0) 12/11/19 20:15 Lymph % (Auto) 16.2 % (21.0-51.0) L 12/11/19 20:15 [place] % (Auto) 8.0 % (0.0-13.0) 12/11/19 20:15 Eos % (Auto) 1.6 % (0.9-2.9) 12/11/19 20:15 Baso % (Auto) 0.5 % (0.2-1.0) 12/11/19 20:15 Neut # (Auto) 5.8 x10^3/uL (2.2-4.8) H 12/11/19 20:15 Lymph # (Auto) 1.3 X10^3/uL (1.3-2.9) 12/11/19 20:15 [place] # (Auto) 0.6 x10^3/uL (0.3-0.8) 12/11/19 20:15 Eos # (Auto) 0.1 x10^3/uL (0.0-0.2) 12/11/19 20:15 Baso # (Auto) 0.0 X10^3/uL (0.0-0.1) 12/11/19 20:15 Absolute Nucleated RBC 0.0 /100WBC 12/11/19 20:15 Sodium 129 mmol/L (136-145) L 12/11/19 20:15 Corrected Sodium 129 mmol/L (136-145) L 12/11/19 20:15 Potassium 3.8 mmol/L (3.5-5.1) 12/11/19 20:15 Chloride 91 mmol/L (98-107) L 12/11/19 20:15 Carbon Dioxide 32.3 mmol/L (21-32) H 12/11/19 20:15 BUN 13 mg/dL (7-18) 12/11/19 20:15 Creatinine 0.78 mg/dL (0.55-1.02) 12/11/19 20:15 Est GFR (MDRD) Af Amer > 60 (>60) 12/11/19 20:15 Est GFR (MDRD) Non-Af > 60 (>60) 12/11/19 20:15 Glucose 114 mg/dL (65-99) H 12/11/19 20:15 Lactic Acid 0.8 mmol/L (0.4-2.0) 12/11/19 20:15 Calcium 8.7 mg/dL (8.5-10.1) 12/11/19 20:15 Corrected Calcium 9.9 mg/dL (8.5-10.1) 12/11/19 20:15 Total Bilirubin 0.20 mg/dL (0.2-1.0) 12/11/19 20:15 AST 13 Units/L (15-37) L 12/11/19 20:15 ALT 13 Units/L (12-78) 12/11/19 20:15 Alkaline Phosphatase 62 Units/L (46-116) 12/11/19 20:15 Creatine Kinase 13 Units/L (26-192) L 12/11/19 20:15 CK-MB (CK-2) < 1.0 ng/mL (0-4.0) 12/11/19 20:15 CK/CKMB % Calc 7.7 % (<4) 12/11/19 20:15 Troponin I < 0.02 ng/mL (0-1.5) 12/11/19 20:15 B-Natriuretic Peptide 89.2 pg/mL (0-79) H 12/11/19 20:05 Total Protein 6.1 g/dL (6.4-8.2) L 12/11/19 20:15 Albumin 2.5 g/dL (3.4-5.0) L 12/11/19 20:15 Globulin 3.6 g/dL (2.5-4.5) 12/11/19 20:15 Albumin/Globulin Ratio 0.7 Ratio (1.1-2.1) L 12/11/19 20:15 Specimen Type Random urine 12/11/19 21:48 Urine Color Yellow (YELLOW) 12/11/19 21:48 Urine Appearance Cloudy (CLEAR) 12/11/19 21:48 Urine pH 6.5 (5.0 - 8.0) 12/11/19 21:48 Ur Specific [place] 1.010 (1.000-1.030) 12/11/19 21:48 Urine Protein 2+ (NEGATIVE) 12/11/19 21:48 Urine Glucose (UA) Negative (NEGATIVE) 12/11/19 21:48 Urine Ketones Negative (NEGATIVE) 12/11/19 21:48 Urine Occult Blood 3+ (NEGATIVE) 12/11/19 21:48 Urine Nitrite Positive (NEGATIVE) 12/11/19 21:48 Urine Bilirubin Negative (NEGATIVE) 12/11/19 21:48 Urine Urobilinogen Normal (NORMAL) 12/11/19 21:48 Ur Leukocyte Esterase 3+ (NEGATIVE) 12/11/19 21:48 Urine RBC 10-20 /HPF (0-3) A 12/11/19 21:48 Urine WBC Tntc /HPF (0-5) A 12/11/19 21:48 Ur Squamous Epith Cells Few /HPF (NEGATIVE) 12/11/19 21:48 Urine Bacteria 3+ /HPF (NEGATIVE) 12/11/19 21:48 Ur Culture Indicated? No/not indicated 12/11/19 21:48 XRAY XRAY Interpreted by: Radiologist (REPORT NOTED.) <Mari Rich - Last Filed: 12/17/19 00:29> Labs Reviewed Laboratory Results Reviewed?: Yes Laboratory: 12/11/19 20:15 Blood Blood Culture - Final 12/11/19 20:07 Blood Blood Culture - Final WBC 7.8 X10^3/uL (3.6-10.0) 12/11/19 20:15 RBC 3.99 X10^6/uL (3.5-5.4) 12/11/19 20:15 Hgb 11.3 g/dL (12.0-16.0) L 12/11/19 20:15 Hct 33.0 % (36.0-47.0) L 12/11/19 20:15 MCV 82.8 fL (80.0-100.0) 12/11/19 20:15 MCH 28.4 pg (27.0-34.0) 12/11/19 20:15 MCHC 34.3 g/dL (33.0-35.0) 12/11/19 20:15 RDW 14.5 % (11.6-16.5) 12/11/19 20:15 Plt Count 236 X10^3/uL (150.0-450.0) 12/11/19 20:15 MPV 6.9 fL (7.4-11.0) L 12/11/19 20:15 Neut % (Auto) 73.7 % (42.0-75.0) 12/11/19 20:15 Lymph % (Auto) 16.2 % (21.0-51.0) L 12/11/19 20:15 [place] % (Auto) 8.0 % (0.0-13.0) 12/11/19 20:15 Eos % (Auto) 1.6 % (0.9-2.9) 12/11/19 20:15 Baso % (Auto) 0.5 % (0.2-1.0) 12/11/19 20:15 Neut # (Auto) 5.8 x10^3/uL (2.2-4.8) H 12/11/19 20:15 Lymph # (Auto) 1.3 X10^3/uL (1.3-2.9) 12/11/19 20:15 [place] # (Auto) 0.6 x10^3/uL (0.3-0.8) 12/11/19 20:15 Eos # (Auto) 0.1 x10^3/uL (0.0-0.2) 12/11/19 20:15 Baso # (Auto) 0.0 X10^3/uL (0.0-0.1) 12/11/19 20:15 Absolute Nucleated RBC 0.0 /100WBC 12/11/19 20:15 Sodium 129 mmol/L (136-145) L 12/11/19 20:15 Corrected Sodium 129 mmol/L (136-145) L 12/11/19 20:15 Potassium 3.8 mmol/L (3.5-5.1) 12/11/19 20:15 Chloride 91 mmol/L (98-107) L 12/11/19 20:15 Carbon Dioxide 32.3 mmol/L (21-32) H 12/11/19 20:15 BUN 13 mg/dL (7-18) 12/11/19 20:15 Creatinine 0.78 mg/dL (0.55-1.02) 12/11/19 20:15 Est GFR (MDRD) Af Amer > 60 (>60) 12/11/19 20:15 Est GFR (MDRD) Non-Af > 60 (>60) 12/11/19 20:15 Glucose 114 mg/dL (65-99) H 12/11/19 20:15 Lactic Acid 0.8 mmol/L (0.4-2.0) 12/11/19 20:15 Calcium 8.7 mg/dL (8.5-10.1) 12/11/19 20:15 Corrected Calcium 9.9 mg/dL (8.5-10.1) 12/11/19 20:15 Total Bilirubin 0.20 mg/dL (0.2-1.0) 12/11/19 20:15 AST 13 Units/L (15-37) L 12/11/19 20:15 ALT 13 Units/L (12-78) 12/11/19 20:15 Alkaline Phosphatase 62 Units/L (46-116) 12/11/19 20:15 Creatine Kinase 13 Units/L (26-192) L 12/11/19 20:15 CK-MB (CK-2) < 1.0 ng/mL (0-4.0) 12/11/19 20:15 CK/CKMB % Calc 7.7 % (<4) 12/11/19 20:15 Troponin I < 0.02 ng/mL (0-1.5) 12/11/19 20:15 B-Natriuretic Peptide 89.2 pg/mL (0-79) H 12/11/19 20:05 Total Protein 6.1 g/dL (6.4-8.2) L 12/11/19 20:15 Albumin 2.5 g/dL (3.4-5.0) L 12/11/19 20:15 Globulin 3.6 g/dL (2.5-4.5) 12/11/19 20:15 Albumin/Globulin Ratio 0.7 Ratio (1.1-2.1) L 12/11/19 20:15 Specimen Type Random urine 12/11/19 21:48 Urine Color Yellow (YELLOW) 12/11/19 21:48 Urine Appearance Cloudy (CLEAR) 12/11/19 21:48 Urine pH 6.5 (5.0 - 8.0) 12/11/19 21:48 Ur Specific [place] 1.010 (1.000-1.030) 12/11/19 21:48 Urine Protein 2+ (NEGATIVE) 12/11/19 21:48 Urine Glucose (UA) Negative (NEGATIVE) 12/11/19 21:48 Urine Ketones Negative (NEGATIVE) 12/11/19 21:48 Urine Occult Blood 3+ (NEGATIVE) 12/11/19 21:48 Urine Nitrite Positive (NEGATIVE) 12/11/19 21:48 Urine Bilirubin Negative (NEGATIVE) 12/11/19 21:48 Urine Urobilinogen Normal (NORMAL) 12/11/19 21:48 Ur Leukocyte Esterase 3+ (NEGATIVE) 12/11/19 21:48 Urine RBC 10-20 /HPF (0-3) A 12/11/19 21:48 Urine WBC Tntc /HPF (0-5) A 12/11/19 21:48 Ur Squamous Epith Cells Few /HPF (NEGATIVE) 12/11/19 21:48 Urine Bacteria 3+ /HPF (NEGATIVE) 12/11/19 21:48 Ur Culture Indicated? No/not indicated 12/11/19 21:48 XRAY X-ray Results: CT head: 1. No acute intracranial process, mass, or bleed identified. 2. Age-appropriate intra-cranial changes of advancing age. CXR: Mild cardiomegaly and mild central pulmonary congestion. Hazy opacity throughout the right lung which is more prominent inferiorly which could be due to atypical pulmonary edema and/or pneumonia with probable atelectasis along the lung base. Small right pleural effusion. Mild subsegmental atelectasis or early infiltrate along the left lung base. Ct chest: 1. Large right pleural effusion is seen which appears partially multiloculated. Associated right lower lobe compressive atelectasis is noted. 2. Complex 26 mm cystic structure is noted in the left lobe of the thyroid gland. Follow-up may be obtained as clinically indicated. 3. Multiple liver lesions are seen of which the largest is in the left hepatic lobe measuring 30 mm in diameter and is fluid dense most likely representing a cyst. However, the other remaining liver lesions are incompletely characterized on this single phase CT scan but statistically most likely represent cysts or hemangiomas. In the clinical setting of a patient with a known primary malignancy, some of these liver lesions could possibly represent malignancy. 4. Status post right shoulder arthroplasty Opioid <CELI LAN - Last Filed: 12/11/19 23:54> Opioid Risk Tool Age ([place] box if 16-45): No History of Preadolescent Sexual Abuse: No Total: 0 Total Score Risk Category: Low Risk Copyright: [facility] predicting aberrant behaviors <Mari Rich - Last Filed: 12/17/19 00:29> Opioid Risk Tool Total: 0 Total Score Risk Category: Low Risk <CELI LAN - Last Filed: 12/11/19 23:54> Diagnosis Discharge Problem: Weakness, Tachypnea, Acute hyponatremia, Thyroid mass, Pleural effusion Instructions Instructions: Fall Prevention in the Home, Adult, [id number] Urinary Tract Infection, Adult Weakness, [id number] Hypertension, [id number] Hyponatremia, [id number] Pleural Effusion Forms: Precautions for COVID19 Patient Portal Social Distancing
[2019-12-11 20:40] LABS: BASOPHILS % (AUTO) 0.5 % (0.2-1.0); EOSINOPHILS # (AUTO) 0.1 x10^3/uL (0.0-0.2); EOSINOPHILS % (AUTO) 1.6 % (0.9-2.9); HEMOGLOBIN 11.3 g/dL (12.0-16.0); LYMPHOCYTES # (AUTO) 1.3 X10^3/uL (1.3-2.9); LYMPHOCYTES % (AUTO) 16.2 % (21.0-51.0); MEAN CORPUSCULAR HEMOGLOBIN 28.4 pg (27.0-34.0); MEAN CORPUSCULAR HGB CONC 34.3 g/dL (33.0-35.0); MEAN CORPUSCULAR VOLUME 82.8 fL (80.0-100.0); MEAN PLATELET VOLUME 6.9 fL (7.4-11.0); MONOCYTES # (AUTO) 0.6 x10^3/uL (0.3-0.8); NEUTROPHILS # (AUTO) 5.8 x10^3/uL (2.2-4.8); NEUTROPHILS % (AUTO) 73.7 % (42.0-75.0); PLATELET COUNT 236 X10^3/uL (150.0-450.0); RED BLOOD COUNT 3.99 X10^6/uL (3.5-5.4); RED CELL DISTRIBUTION WIDTH 14.5 % (11.6-16.5); WHITE BLOOD COUNT 7.8 X10^3/uL (3.6-10.0)
--- NOTE | 2019-12-11 20:44 | RAD ---
HISTORYC/O WEAKNESS, LESSENED INTAKE, DECREASED ACTIVITY. EMS STATES UPON ARRIVAL TO HOME, PATIENT'S HR WAS 72, O2 SAT = 91% ON RA, AND SBP = 98STUDYCHEST, 1 [id number]/26/2019FINDINGSThe heart is mildly enlarged but unchanged. The pulmonary vessels are engorged centrally and more prominent. There is hazy opacity throughout the right lung which is more prominent inferiorly. There is small right pleural effusion. There is subsegmental linear opacity along the left lung base medially which is more apparent. There is metallic prosthesis in the right shoulder which is unchanged.IMPRESSIONMild cardiomegaly and mild central pulmonary congestion.Hazy opacity throughout the right lung which is more prominent inferiorly which could be due to atypical pulmonary edema and/or pneumonia with probable atelectasis along the lung base.Small right pleural effusion.Mild subsegmental atelectasis or early infiltrate along the left lung base.Electronically signed by: KELLEY HARTMANN (Dec 11, 2019 20:43:18)
[2019-12-11 20:46] LABS: LACTIC ACID 0.8 mmol/L (0.4-2.0)
--- NOTE | 2019-12-11 20:50 | CT ---
HISTORY: Altered mental status and weakness.Noncontrast head CT examination.Comparison: [None].Technique:Multiple axial images of the brain were obtained from the skull base to the vertex without administration of IV contrast.Findings: There is moderate sulcal and cisternal prominence as well as atherosclerotic change in the proximal intracranial carotid and vertebral arteries, which is not out of proportion to the patient's stated age. There is diffuse CT density alteration seen in the periventricular white matter of the high and mid-convexity, which is likely in the setting of small vessel disease and not out of proportion to the patient's stated age. There is mild bilateral ex vacuo ventricular dilatation without evidence for hydrocephalus or herniation syndrome. No midline shift is evident. No acute intraparenchymal hemorrhage or mass can be identified. No extra-axial fluid collections are seen. No alteration in the attenuation of the brain parenchyma can be identified to suggest acute or subacute ischemic change. However, if clinical symptoms are concerning for an acute CVA, then follow-up MRI with DWI sequencing is recommended. The extracranial structures are unremarkable. The paranasal sinuses and mastoid air cells are clear.IMPRESSION:1. No acute intracranial process, mass, or bleed identified.2. Age-appropriate intra-cranial changes of advancing age.Electronically signed by: SILVIO VICKERS III (Dec 11, 2019 20:48:59)
[2019-12-11 20:55] LABS: BLOOD UREA NITROGEN 13 mg/dL (7-18); CALCIUM 8.7 mg/dL (8.5-10.1); CARBON DIOXIDE 32.3 mmol/L (21-32); CHLORIDE 91 mmol/L (98-107); COR NA(FOR HYPERGLY) 129 mmol/L (136-145); CREATININE 0.78 mg/dL (0.55-1.02); SODIUM 129 mmol/L (136-145); TROPONIN I < 0.02 ng/mL (0-1.5); eGFR NON BLACK RACES > 60 (>60)
[2019-12-11 21:10] LABS: ALANINE AMINOTRANSFERASE 13 Units/L (12-78); ALBUMIN 2.5 g/dL (3.4-5.0); ALKALINE PHOSPHATASE 62 Units/L (46-116); ASPARTATE AMINO TRANSFERASE 13 Units/L (15-37); CKMB % 7.7 % (<4); COR CA(FOR HYPOALB) 9.9 mg/dL (8.5-10.1); CREATINE KINASE 13 Units/L (26-192); CREATINE KINASE MB < 1.0 ng/mL (0-4.0); TOTAL PROTEIN 6.1 g/dL (6.4-8.2)
[2019-12-11 22:02] LABS: BILIRUBIN,URINE NEGATIVE (NEGATIVE); BLOOD/HEMOGLOBIN,URINE 3+ (NEGATIVE); GLUCOSE, URINE NEGATIVE (NEGATIVE); KETONES,URINE NEGATIVE (NEGATIVE); LEUKOCYTE ESTERASE ,URINE 3+ (NEGATIVE); NITRITES,URINE POSITIVE (NEGATIVE); PH,URINE 6.5 (5.0 - 8.0); PROTEIN,URINE 2+ (NEGATIVE); UROBILINOGEN,URINE NORMAL (NORMAL)
[2019-12-11 22:12] LABS: APPEARANCE,URINE CLOUDY (CLEAR); COLOR,URINE YELLOW (YELLOW)
[2019-12-11 22:13] LABS: BACTERIA,URINE 3+ /HPF (NEGATIVE); SQUAMOUS EPITHELIAL CELL,UR FEW /HPF (NEGATIVE)
--- NOTE | 2019-12-11 22:33 | CT ---
STUDY: CT CHEST WITH IV CONTRASTCOMPARISON: NoneTECHNIQUE: Axial images were acquired of the chest with IV contrast. Sagittal and coronal reformatted images were provided. All images were reviewed in a variety of windows and levels.RADIATION REDUCTION TECHNIQUE: Automated exposure control, Adjustment of the mA and/or kV according to patient size, or iterative reconstruction techniques were used. 3D MIPS were performed and reviewed.HISTORY: C/O WEAKNESS, LESSENED INTAKE, DECREASED ACTIVITY. EMS STATES UPON ARRIVAL TO HOME, PATIENT'S HR WAS 72, O2 SAT = 91% ON RA, AND SBP = 98FINDINGS:CHEST:?THYROID GLANDS: There is a complex cystic like mass in the left lobe of the thyroid gland measuring 21 x 26 mm. The right lobe of the thyroid gland appears unremarkable.HEART AND VESSELS: The heart size is within normal limits.There is no evidence of pericardial effusion. Thoracic aorta is normal in size without evidence of an aneurysm or dissection.Main pulmonary artery size is within normal limits.There are no gross filling defect seen within the visualized pulmonary arteries to suggest a pulmonary embolism.?LYMPH NODES: There is no evidence of axillary, mediastinal, or hilar lymphadenopathy.?AIRWAY: The trachea mainstem bronchi are patent. No intraluminal lesions are seen. ?LUNGS: There is a large right pleural effusion with associated compressive atelectasis of the right lower lobe. Discoid atelectasis of the left lower lobe is noted. The large right pleural effusion appears multiloculated near the right upper lobe region. There is no evidence of pneumothorax. No focal consolidation is seen in the left lung.ESOPHAGUS: The esophagus is grossly unremarkable.?BONES: The visualized bones demonstrate degenerative changes.There are no concerning lytic or blastic lesions identified. Patient is status post right shoulder arthroplasty.UPPER ABDOMINAL STRUCTURES: The visualized upper abdominal structures demonstrates multiple liver lesions of which the largest is along the subcapsular surface of the left hepatic lobe measuring 30 mm in diameter. These lesions are incompletely characterized on this single phase CT scan but statistically most likely represent cyst or possible hemangiomas. Capsular retraction is noted along the left hepatic lobe. In the clinical setting of a patient with a known primary malignancy, some of these lesions could possibly represent metastatic disease.?IMPRESSION:1. Large right pleural effusion is seen which appears partially multiloculated. Associated right lower lobe compressive atelectasis is noted.2. Complex 26 mm cystic structure is noted in the left lobe of the thyroid gland. Follow-up may be obtained as clinically indicated.3. Multiple liver lesions are seen of which the largest is in the left hepatic lobe measuring 30 mm in diameter and is fluid dense most likely representing a cyst. However, the other remaining liver lesions are incompletely characterized on this single phase CT scan but statistically most likely represent cysts or hemangiomas. In the clinical setting of a patient with a known primary malignancy, some of these liver lesions could possibly represent malignancy.4. Status post right shoulder arthroplastyElectronically signed by: Oj Rodas (Dec 11, 2019 22:31:54)
[2019-12-11] MEDS ORDERED: NS 1000 ML 1,000 ML IV ONE (22:47)
[2019-12-11] MEDS ORDERED: NS 1000 ML 1,000 ML ONE (23:02)
[2019-12-12 06:53] LABS: BASOPHILS % (AUTO) 0.6 % (0.2-1.0); EOSINOPHILS # (AUTO) 0.1 x10^3/uL (0.0-0.2); EOSINOPHILS % (AUTO) 2.4 % (0.9-2.9); HEMATOCRIT 29.4 % (36.0-47.0); HEMOGLOBIN 10.2 g/dL (12.0-16.0); LYMPHOCYTES # (AUTO) 1.3 X10^3/uL (1.3-2.9); LYMPHOCYTES % (AUTO) 23.4 % (21.0-51.0); MEAN CORPUSCULAR HEMOGLOBIN 28.6 pg (27.0-34.0); MEAN CORPUSCULAR HGB CONC 34.7 g/dL (33.0-35.0); MEAN CORPUSCULAR VOLUME 82.6 fL (80.0-100.0); MEAN PLATELET VOLUME 6.8 fL (7.4-11.0); MONOCYTES # (AUTO) 0.5 x10^3/uL (0.3-0.8); MONOCYTES % (AUTO) 8.9 % (0.0-13.0); NEUTROPHILS # (AUTO) 3.7 x10^3/uL (2.2-4.8); NEUTROPHILS % (AUTO) 64.7 % (42.0-75.0); PLATELET COUNT 224 X10^3/uL (150.0-450.0); RED BLOOD COUNT 3.56 X10^6/uL (3.5-5.4); RED CELL DISTRIBUTION WIDTH 14.5 % (11.6-16.5); WHITE BLOOD COUNT 5.8 X10^3/uL (3.6-10.0)
[2019-12-12 07:19] LABS: ALANINE AMINOTRANSFERASE 11 Units/L (12-78); ALBUMIN 2.1 g/dL (3.4-5.0); ALKALINE PHOSPHATASE 50 Units/L (46-116); ASPARTATE AMINO TRANSFERASE 13 Units/L (15-37); BLOOD UREA NITROGEN 8 mg/dL (7-18); CALCIUM 8.1 mg/dL (8.5-10.1); CARBON DIOXIDE 29.8 mmol/L (21-32); CHLORIDE 98 mmol/L (98-107); COR CA(FOR HYPOALB) 9.6 mg/dL (8.5-10.1); SODIUM 133 mmol/L (136-145); TOTAL PROTEIN 5.3 g/dL (6.4-8.2); eGFR NON BLACK RACES > 60 (>60)
[2019-12-12] MEDS: ALBUMIN HUMAN 25%- 100 ML 100 ML IV SCH (10:22)
[2019-12-12] MEDS: LEVAQUIN PREMIX IV 500 MG 500 MG/100 ML BAG IV SCH (10:23)
[2019-12-12] MEDS: FORTAZ or TAZICEF VIAL INJ 1 G in NS 100 ML IV + SPIKE MINIBAG* 100 ML IV SCH ×3 (10:26→21:25)
[2019-12-12] MEDS ORDERED: ANTIVERT TAB 25 MG PO PRN (10:32)
[2019-12-12] MEDS: HEMOCYTE-PLUS PO SCH (11:15)
[2019-12-12] MEDS: CITRACAL + VITAMIN D PO SCH (11:15)
[2019-12-12] MEDS ORDERED: TAPAZOLE ONE (11:16)
[2019-12-12] MEDS: TAPAZOLE PO SCH (11:17)
[2019-12-12] MEDS: MAG-OX TAB PO SCH ×2 (11:17→21:25)
[2019-12-12] MEDS: NAMENDA TAB 10 MG PO SCH ×3 (11:17→21:55)
[2019-12-12] MEDS: SINGULAIR TAB 10 MG PO SCH (11:18)
[2019-12-12 12:37] VITALS: BMI 20.4
--- NOTE | 2019-12-12 13:38 | US ---
HISTORYLESIONS SEEN ON LIVER FROM CHEST CT, additional history hypertension hysterectomy of appendectomy bowel resection in sinus surgery no history is given of malignancy.STUDYLIVERCOMPARISONChest CT December 11, 2019 which showed multiple hypodensities in the liver some with simple cystic but some borderline in attenuation. Lesions were seen primarily in the left lobe but also in the right lobe of the liver.TECHNIQUEMultiple james scale and color flow Doppler images of the right upper quadrant were obtained. These lesions were present on the preceding CT scan May 15, 2019 currently measure smaller than they did in 2018, the largest in the left lobe of the liver currently measuring 4.6 cm 1 adjacent to it in the left lobe measures 1.1 previously measuring 1 cm. One in the caudate lobe presently measures 1 cm previously measured 0.9 cm.FINDINGSThe liver is normal in echotexture and size. Multiple hepatic cysts are seen all of these have the appearance of simple cysts 18 sharp margins and no internal echoes. No focal intraparenchymal mass or intrahepatic biliary ductal dilatation can be observed. The gallbladder fails to demonstrate evidence for cholelithiasis or layering sludge . The common bile duct is unremarkable measuring 3.2 mm. No pericholecystic fluid or gallbladder wall thickening can be observed. There is normal flow in the main portal vein. Normal flow is seen in the hepatic artery. Normal flow is seen in the IVC.The right kidney appears normal in size without focal parenchymal mass or nephrolithiasis. The right kidney measurers 7.8 cm in length by 4.3 cm AP by 5.1 cm transverse with a cortical thickness of 14 mm. There is a cyst laterally in the mid right kidney measuring 1.58 x 1.37 cm.. No hydronephrosis or perirenal fluid can be observed. The pancreatic head and body are unremarkable. The pancreatic tail is largely obscured by overlying bowel gas.the aorta tapers normally 1.6 cm AP proximally 1.29 cm AP mid and 1.09 cm AP distally.The visualized portions of pancreas are normal. 3.2 mm multiple simple cystic lesions are seen both in the left and right lobe of the liver. In the left lobe anteriorly the largest lesion measures 2.4 x 1.7 another in the left lobe of the liver measures 1.5 x 2.0 another anteriorly superiorly and posteriorly measures 1.8 x 1.3 cm. In the right lobe of the liver there is a simple cyst 2.3 x 3.1 anterior to the right kidney.IMPRESSIONMultiple hypodensities in both the left and right lobe of the liver. These are all hypodense and have the appearance of simple cysts. They have sharp thin amaya, no internal echoes, no vascular flow.When compared to older studies most are stable but the L1 largest 1 in the left lobe of the liver is smaller than it was on the prior CT scan of the abdomen October 30, 2018.Electronically signed by: BARBARA PHIPPS (Dec 12, 2019 13:36:31)
[2019-12-12 14:30] LABS: BILIRUBIN,URINE NEGATIVE (NEGATIVE); BLOOD/HEMOGLOBIN,URINE NEGATIVE (NEGATIVE); GLUCOSE, URINE NEGATIVE (NEGATIVE); KETONES,URINE NEGATIVE (NEGATIVE); LEUKOCYTE ESTERASE ,URINE 3+ (NEGATIVE); NITRITES,URINE NEGATIVE (NEGATIVE); PROTEIN,URINE NEGATIVE (NEGATIVE); UROBILINOGEN,URINE NORMAL (NORMAL)
[2019-12-12 14:32] LABS: APPEARANCE,URINE CLEAR (CLEAR); COLOR,URINE YELLOW (YELLOW)
[2019-12-12 14:37] LABS: BACTERIA,URINE NEGATIVE /HPF (NEGATIVE); RBC,URINE NONE SEEN /HPF (0-3); SQUAMOUS EPITHELIAL CELL,UR NEGATIVE /HPF (NEGATIVE)
--- NOTE | 2019-12-12 15:04 | RAD ---
HISTORYSOBSTUDYCHEST, 1 VIEWCOMPARISONChest film December 11, 2019.FINDINGSThe trachea is midline. The cardiac silhouette is unremarkable. The left lung is clear but there is effusion and infiltrate in the right lung base. 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 Chest film is not changed significantly when compared to yesterdays study.Electronically signed by: BARBARA PHIPPS (Dec 12, 2019 15:03:36)
[2019-12-12] MEDS: CRESTOR TAB 10 MG PO SCH (21:25)
[2019-12-12] MEDS: LOPRESSOR TAB 25 MG PO SCH (21:25)
--- NOTE | 2019-12-13 05:18 | RAD ---
STUDY: CHEST, 1 VIEWCOMPARISON: December 12, 2019HISTORY: sobFINDINGS:Right shoulder arthroplasty is again noted. Persistent alveolar airspace disease is seen in the right mid and right lower lung zone which is unchanged from the prior study. Small right pleural effusion is unchanged. Left lung is clear. Cardiomediastinal contour is stable. No gross pneumothorax is seen.IMPRESSION:No significant change from prior study.Electronically signed by: Oj Rodas (Dec 13, 2019 05:16:51)
[2019-12-13 05:24] LABS: BASOPHILS # (AUTO) 0.1 X10^3/uL (0.0-0.1); BASOPHILS % (AUTO) 0.8 % (0.2-1.0); EOSINOPHILS # (AUTO) 0.3 x10^3/uL (0.0-0.2); EOSINOPHILS % (AUTO) 3.6 % (0.9-2.9); HEMATOCRIT 31.7 % (36.0-47.0); HEMOGLOBIN 10.7 g/dL (12.0-16.0); LYMPHOCYTES # (AUTO) 1.9 X10^3/uL (1.3-2.9); LYMPHOCYTES % (AUTO) 24.3 % (21.0-51.0); MEAN CORPUSCULAR HEMOGLOBIN 28.1 pg (27.0-34.0); MEAN CORPUSCULAR HGB CONC 33.9 g/dL (33.0-35.0); MONOCYTES # (AUTO) 0.7 x10^3/uL (0.3-0.8); MONOCYTES % (AUTO) 9.4 % (0.0-13.0); NEUTROPHILS # (AUTO) 4.8 x10^3/uL (2.2-4.8); NEUTROPHILS % (AUTO) 61.9 % (42.0-75.0); PLATELET COUNT 238 X10^3/uL (150.0-450.0); RED BLOOD COUNT 3.82 X10^6/uL (3.5-5.4); RED CELL DISTRIBUTION WIDTH 14.8 % (11.6-16.5); WHITE BLOOD COUNT 7.8 X10^3/uL (3.6-10.0)
[2019-12-13 05:34] LABS: ALANINE AMINOTRANSFERASE 10 Units/L (12-78); ALBUMIN 2.6 g/dL (3.4-5.0); ALKALINE PHOSPHATASE 50 Units/L (46-116); ASPARTATE AMINO TRANSFERASE 15 Units/L (15-37); BLOOD UREA NITROGEN 8 mg/dL (7-18); CALCIUM 8.6 mg/dL (8.5-10.1); CHLORIDE 98 mmol/L (98-107); COR CA(FOR HYPOALB) 9.7 mg/dL (8.5-10.1); MAGNESIUM 1.7 mg/dL (1.7-2.9); SODIUM 134 mmol/L (136-145); eGFR NON BLACK RACES > 60 (>60)
[2019-12-13] MEDS: FORTAZ or TAZICEF VIAL INJ 1 G in NS 100 ML IV + SPIKE MINIBAG* 100 ML IV SCH ×3 (05:54→21:30)
[2019-12-13] MEDS ORDERED: MICRO K EXTEN CAP 10 MEQ PO PRN (06:24)
[2019-12-13] MEDS ORDERED: POTASSIUM CHL 60 MEQ/NS 0.45% 500 ML IV PRN (06:24)
[2019-12-13] MEDS ORDERED: POTASSIUM CHL 40 MEQ/NS 0.45% 500 ML IV PRN (06:24)
[2019-12-13] MEDS ORDERED: POTASSIUM CHLORIDE LIQ 20 MEQ UDC PO PRN (06:24)
[2019-12-13] MEDS ORDERED: K-RIDER 10 MEQ/NS 100 ML 10 MEQ/100 ML BAG IV PRN (06:24)
[2019-12-13] MEDS ORDERED: K-DUR TAB 20 MEQ PO PRN (06:24)
[2019-12-13] MEDS ORDERED: KLOR-CON PO PRN (06:24)
[2019-12-13] MEDS ORDERED: TAPAZOLE ONE (07:26)
[2019-12-13] MEDS: HEMOCYTE-PLUS PO SCH (08:38)
[2019-12-13] MEDS: CITRACAL + VITAMIN D PO SCH (08:38)
[2019-12-13] MEDS: LEVAQUIN PREMIX IV 500 MG 500 MG/100 ML BAG IV SCH (08:38)
[2019-12-13] MEDS: NAMENDA TAB 10 MG PO SCH ×2 (08:39→23:45)
[2019-12-13] MEDS: MAG-OX TAB PO SCH ×2 (08:39→21:30)
[2019-12-13] MEDS: NexIUM PO SCH (08:39)
[2019-12-13] MEDS: TAB-A-VITE PO SCH (08:40)
[2019-12-13] MEDS: TAPAZOLE PO SCH (08:40)
[2019-12-13] MEDS: SINGULAIR TAB 10 MG PO SCH (08:40)
[2019-12-13] MEDS: ALBUMIN HUMAN 25%- 100 ML 100 ML IV SCH (10:15)
[2019-12-13] MEDS: PROCALAMINE 3 % 1,000 ML IV SCH (13:11)
[2019-12-13] MEDS: CRESTOR TAB 10 MG PO SCH (21:30)
[2019-12-13] MEDS: LOPRESSOR TAB 25 MG PO SCH (21:30)
[2019-12-14] MEDS: FORTAZ or TAZICEF VIAL INJ 1 G in NS 100 ML IV + SPIKE MINIBAG* 100 ML IV SCH ×3 (05:51→22:18)
[2019-12-14 06:52] LABS: BASOPHILS # (AUTO) 0.1 X10^3/uL (0.0-0.1); BASOPHILS % (AUTO) 0.7 % (0.2-1.0); EOSINOPHILS # (AUTO) 0.4 x10^3/uL (0.0-0.2); EOSINOPHILS % (AUTO) 5.1 % (0.9-2.9); HEMATOCRIT 32.1 % (36.0-47.0); HEMOGLOBIN 10.8 g/dL (12.0-16.0); LYMPHOCYTES # (AUTO) 1.6 X10^3/uL (1.3-2.9); LYMPHOCYTES % (AUTO) 19.8 % (21.0-51.0); MEAN CORPUSCULAR HEMOGLOBIN 28.3 pg (27.0-34.0); MEAN CORPUSCULAR HGB CONC 33.8 g/dL (33.0-35.0); MEAN CORPUSCULAR VOLUME 83.9 fL (80.0-100.0); MEAN PLATELET VOLUME 7.2 fL (7.4-11.0); MONOCYTES # (AUTO) 0.8 x10^3/uL (0.3-0.8); MONOCYTES % (AUTO) 9.6 % (0.0-13.0); NEUTROPHILS # (AUTO) 5.3 x10^3/uL (2.2-4.8); NEUTROPHILS % (AUTO) 64.8 % (42.0-75.0); PLATELET COUNT 218 X10^3/uL (150.0-450.0); RED BLOOD COUNT 3.82 X10^6/uL (3.5-5.4); RED CELL DISTRIBUTION WIDTH 14.5 % (11.6-16.5); WHITE BLOOD COUNT 8.2 X10^3/uL (3.6-10.0)
--- NOTE | 2019-12-14 06:55 | RAD ---
HISTORYShortness of breathSTUDYSingle-view [id number] trachea is midline. The cardiac silhouette is enlarged with a tortuous thoracic aorta. Worsening pleural parenchymal opacity the right base is observed with hazy opacification to suggest layering pleural effusion. Chronic interstitial lung changes left jerrod thorax are stable. The bony thorax is unremarkable.IMPRESSIONWorsening pleural parenchymal opacity the right base consistent with underlying infiltrate and layering pleural effusion.Electronically signed by: VITOR ROCA (Dec 14, 2019 06:54:20)
[2019-12-14 07:07] LABS: ALANINE AMINOTRANSFERASE 11 Units/L (12-78); ALBUMIN 2.8 g/dL (3.4-5.0); ALKALINE PHOSPHATASE 48 Units/L (46-116); ASPARTATE AMINO TRANSFERASE 15 Units/L (15-37); BLOOD UREA NITROGEN 9 mg/dL (7-18); CALCIUM 8.5 mg/dL (8.5-10.1); CARBON DIOXIDE 26.3 mmol/L (21-32); CHLORIDE 99 mmol/L (98-107); COR CA(FOR HYPOALB) 9.5 mg/dL (8.5-10.1); CREATININE 0.55 mg/dL (0.55-1.02); SODIUM 133 mmol/L (136-145); TOTAL PROTEIN 6.1 g/dL (6.4-8.2); eGFR NON BLACK RACES > 60 (>60)
[2019-12-14] MEDS ORDERED: TAPAZOLE ONE (08:01)
[2019-12-14] MEDS: TAPAZOLE PO SCH (08:45)
[2019-12-14] MEDS: NexIUM PO SCH (08:45)
[2019-12-14] MEDS: SINGULAIR TAB 10 MG PO SCH (08:45)
[2019-12-14] MEDS: HEMOCYTE-PLUS PO SCH (08:45)
[2019-12-14] MEDS: TAB-A-VITE PO SCH (08:45)
[2019-12-14] MEDS: LEVAQUIN PREMIX IV 500 MG 500 MG/100 ML BAG IV SCH (08:45)
[2019-12-14] MEDS: CITRACAL + VITAMIN D PO SCH (08:45)
[2019-12-14] MEDS: MAG-OX TAB PO SCH ×2 (08:45→22:00)
[2019-12-14] MEDS: ALBUMIN HUMAN 25%- 100 ML 100 ML IV SCH (09:45)
[2019-12-14] MEDS: NAMENDA TAB 10 MG PO SCH ×2 (10:09→22:18)
[2019-12-14] MEDS: PROCALAMINE 3 % 1,000 ML IV SCH (11:45)
[2019-12-14] MEDS ORDERED: TYLENOL 500 MG TAB EXTRA STRENGTH PO PRN (11:59)
[2019-12-14] MEDS: CRESTOR TAB 10 MG PO SCH (22:00)
[2019-12-14] MEDS: LOPRESSOR TAB 25 MG PO SCH (22:00)
--- NOTE | 2019-12-14 22:48 | DR.H&P ---
H&P - History & Physical for Day of: H&P Date: 12/12/19 - Chief Complaint Chief Complaint: WEAKNESS, DECREASED APPETITE, CONFUSION, HYPOTENSION - History of Present Illness History of Present Illness: IS A 84 YEAR OLD PATIENT OF OURS WHO PRESENTED TO THE ER WITH COMPLAINTS OF WEAKNESS, DECREASED APPETITE, CONFUSION, AND HYPOTENSION. SYMPTOMS STARTED SEVERAL DAYS AGO AND HAVE PROGRESSIVELY GOTTEN WORSE. SHE DENIES FEVER, DYSURIA, CHEST PAIN, OR NAUSEA. ON ARRIVAL TO THE ER, VITALS WERE 96.7-69-33-100%NC-144/65. LABS WERE OBTAINED. ABNORMAL LAB VALUES INCLUDE THE FOLLOWING: HGB 10.2, HCT 29.4, SODIUM 133, POTASSIUM 3.3, CREATININE 0.50, CALCIUM 8.1, AST 13, ALT 11, TOTAL PROTEIN 5.3, ALBUMIN 2.1. A URINALYSIS WAS OBTAINED AND REVEALED: WBC TNTC, RBC 10-20, BACTERIA 3+, LEUKOCYTES 3+, NITRITES POSITIVE. BLOOD CULTURES WERE SET UP. EKG REVEALED: SINUS RHYTHM WITH HR 72. A BRAIN CT WAS OBTAINED AND REVEALED: 1. No acute intracranial process, mass, or bleed identified. 2. Age-appropriate intra-cranial changes of advancing age. A CHEST XRAY WAS OBTAINED AND REVEALED: Mild cardiomegaly and mild central pulmonary congestion. Hazy opacity throughout the right lung which is more prominent inferiorly which could be due to atypical pulmonary edema and/or pneumonia with probable atelectasis along the lung base. Small right pleural effusion. Mild subsegmental atelectasis or early infiltrate along the left lung base. WE THEN OBTAINED A CHEST CT WHICH REVEALED: 1. Large right pleural effusion is seen which appears partially multiloculated. Associated right lower lobe compressive atelectasis is noted. 2. Complex 26 mm cystic structure is noted in the left lobe of the thyroid gland. Follow-up may be obtained as clinically indicated. 3. Multiple liver lesions are seen of which the largest is in the left hepatic lobe measuring 30 mm in diameter and is fluid dense most likely representing a cyst. However, the other remaining liver lesions are incompletely characterized on this single phase CT scan but statistically most likely represent cysts or hemangiomas. In the clinical setting of a patient with a known primary malignancy, some of these liver lesions could possibly represent malignancy. 4. Status post right shoulder arthroplasty. SHE WAS ADMITTED FOR FURTHER EVALUATION AND TREATMENT OF UTI, HYPONATREMIA, PNEUMONIA, MULTIPLE LIVER LESIONS, AND THYROID MASS. SHE WAS STARTED ON NORMAL SALINE AT 80 ML/HR, FORTAZ 1G IV Q8H, LEVAQUIN 500MG IV DAILY, ALBUMIN 25% IV DAILY, PROCALAMINE AT 40 ML/HR, AND HOME MEDICATIONS WERE RESUMED. TODAY, WE WILL OBTAIN A LIVER ULTRASOUND AND TEST FOR COVID-19. OTHERWISE, WE WILL FOLLOW UP WITH A LABS AND CHEST XRAY AND CONTINUE TO MONITOR. - Past Medical History Past Medical History: Dementia - Past Surgical History Surgical History: Abdominal Surgery, Bowel Resection, [employer] ADVISER Surgery, Joint Replacement, Ortho Surgery - Family History Family Medical History: Cancer, [place], Hypertension - Social History Alcohol Use: None Drug Use: None - Medications Home Medications: carbamazepine [From Tegretol] Allergy (Verified 08/14/19 11:40) Sulfa (Sulfonamide Antibiotics) [SULFA] Allergy (Verified 08/14/19 11:40) sulfamethoxazole [From Bactrim] Adverse Reaction (Verified 08/14/19 11:40) trimethoprim [From Bactrim] Adverse Reaction (Verified 08/14/19 11:40) CONTINUE taking the following medications B [id number] [Ferrocite Plus] 1 tab PO DAILY 12/11/19 [History] B complex-vitamin C-folic acid 400 mcg PO DAILY 12/11/19 [History] calcium citrate-vitamin D3 [Citracal + D Maximum] 1 tab PO DAILY 12/11/19 [History] esomeprazole magnesium [Nexium 24HR] 20 mg PO DAILY 12/11/19 [History] fexofenadine-pseudoephedrine [Rosey-D 12 Hour] 1 tab PO Q12H PRN 12/11/19 [History] hydrochlorothiazide 25 mg PO DAILY 12/11/19 [History] meclizine 12.5 - 25 mg PO TID PRN 12/11/19 [History] memantine 10 mg PO BID 12/11/19 [History] montelukast 10 mg PO DAILY 12/11/19 [History] - Review of Systems Constitutional: Weakness, Malaise, Other (DECREASED APPETITE) Eyes: No Symptoms Reported ENT: No Symptoms Reported Respiratory: Shortness of Breath Cardiovascular: No Symptoms Reported Gastrointestinal: No Symptoms Reported Genitourinary: No Symptoms Reported Musculoskeletal: No Symptoms Reported Skin: No Symptoms Reported Neurological: See HPI, Weakness, Confusion - Physical Exam Vital Signs: Temperature 98.6 F Pulse Rate [Apical] 68 Pulse Rate 62 Respiratory Rate 18 Blood Pressure [Left Arm] 113/56 Blood Pressure [Right Arm] 128/59 Blood Pressure 132/75 O2 Sat by Pulse Oximetry 96 Oriented: Normal Eyes: Normal Ear: Normal Nose: Normal Throat: Normal Respiratory: Diminished Throughout Cardiovascular: Normal : Normal Auscultation: Bowel Sounds: Normal Palpation: Normal Tenderness: Normal Skin: Normal Musculoskeletal: Normal Psychiatric: Normal Mood Description: Calm Affect: Normal Speech Pattern: Clear - Assessment/Plan (1) Pneumonia Qualifiers: Pneumonia type: due to unspecified organism Laterality: right Lung locati on: lower lobe of lung Qualified Code(s): J18.9 - Pneumonia, unspecified organism Status: Acute Plan: ADMIT, IV FORTAZ, IV LEVAQUIN, CONTINUE TO MONITOR (2) Urinary tract infection Qualifiers: Urinary tract infection type: acute cystitis Hematuria presence: without hematuria Qualified Code(s): N30.00 - Acute cystitis without hematuria Status: Acute Plan: IV FORTAZ, IV LEVAQUIN, CONTINUE TO MONITOR (3) Acute hyponatremia Status: Acute Plan: NS AT 80 ML/HR, CONTINUE TO MONITOR (4) Lesion of liver Status: Acute (5) Thyroid mass Status: Acute - Allergies Allergies/Adverse Reactions: Allergies Allergy/AdvReac Type Severity Reaction Status Date / Time carbamazepine [From Tegretol] Allergy Verified 08/14/19 11:40 Sulfa (Sulfonamide Allergy Verified 08/14/19 11:40 Antibiotics) [SULFA] sulfamethoxazole AdvReac Verified 08/14/19 11:40 [From Bactrim] trimethoprim [From Bactrim] AdvReac Verified 08/14/19 11:40
[2019-12-15] MEDS: FORTAZ or TAZICEF VIAL INJ 1 G in NS 100 ML IV + SPIKE MINIBAG* 100 ML IV SCH (05:58)
--- NOTE | 2019-12-15 06:17 | RAD ---
HISTORYShortness of breathSTUDYCHEST, 1 [id number] heart remains enlarged. The aorta is calcified and somewhat ectatic. Haziness throughout the right jerrod thorax is likely due to infiltrate and pleural effusion and is unchanged. The left lung is clear. Bony thorax is unremarkable with the exception of a right shoulder arthroplasty.IMPRESSIONContinued cardiomegaly without congestive heart failureDiffuse increased density throughout the right jerrod thorax likely due to pleural effusion and right lower lobe infiltrate, unchangedElectronically signed by: MOISE GREGORY (Dec 15, 2019 06:16:50)
[2019-12-15 06:36] LABS: BASOPHILS % (AUTO) 0.6 % (0.2-1.0); EOSINOPHILS # (AUTO) 0.5 x10^3/uL (0.0-0.2); EOSINOPHILS % (AUTO) 6.9 % (0.9-2.9); HEMATOCRIT 30.3 % (36.0-47.0); HEMOGLOBIN 10.4 g/dL (12.0-16.0); LYMPHOCYTES # (AUTO) 1.6 X10^3/uL (1.3-2.9); LYMPHOCYTES % (AUTO) 20.8 % (21.0-51.0); MEAN CORPUSCULAR HEMOGLOBIN 28.5 pg (27.0-34.0); MEAN CORPUSCULAR HGB CONC 34.3 g/dL (33.0-35.0); MEAN CORPUSCULAR VOLUME 83.1 fL (80.0-100.0); MEAN PLATELET VOLUME 6.9 fL (7.4-11.0); MONOCYTES # (AUTO) 0.7 x10^3/uL (0.3-0.8); MONOCYTES % (AUTO) 8.9 % (0.0-13.0); NEUTROPHILS # (AUTO) 4.9 x10^3/uL (2.2-4.8); NEUTROPHILS % (AUTO) 62.8 % (42.0-75.0); PLATELET COUNT 215 X10^3/uL (150.0-450.0); RED BLOOD COUNT 3.65 X10^6/uL (3.5-5.4); RED CELL DISTRIBUTION WIDTH 14.6 % (11.6-16.5); WHITE BLOOD COUNT 7.8 X10^3/uL (3.6-10.0)
[2019-12-15 06:48] LABS: ALANINE AMINOTRANSFERASE 10 Units/L (12-78); ALKALINE PHOSPHATASE 42 Units/L (46-116); ASPARTATE AMINO TRANSFERASE 12 Units/L (15-37); BLOOD UREA NITROGEN 10 mg/dL (7-18); CALCIUM 8.8 mg/dL (8.5-10.1); CARBON DIOXIDE 24.8 mmol/L (21-32); CHLORIDE 99 mmol/L (98-107); COR CA(FOR HYPOALB) 9.6 mg/dL (8.5-10.1); CREATININE 0.54 mg/dL (0.55-1.02); SODIUM 132 mmol/L (136-145); TOTAL PROTEIN 6.1 g/dL (6.4-8.2); eGFR NON BLACK RACES > 60 (>60)
[2019-12-15 07:38] LABS: ERYTHROCYTE SEDIMENTATION RATE 18 MM/HOUR (0-20)
[2019-12-15 08:02] LABS: ABG ALLEN TEST POS; ABG BASE EXCESS 1.4 mmol/L (-2.0-2.0); ABG HCO3 24.7 mmol/L (22-26)
[2019-12-15] MEDS ORDERED: TAPAZOLE ONE (08:18)
[2019-12-15] MEDS: CITRACAL + VITAMIN D PO SCH (09:00)
[2019-12-15] MEDS: LEVAQUIN PREMIX IV 500 MG 500 MG/100 ML BAG IV SCH (09:08)
[2019-12-15] MEDS: ALBUMIN HUMAN 25%- 100 ML 100 ML IV SCH (09:08)
[2019-12-15] MEDS: MAG-OX TAB PO SCH (09:09)
[2019-12-15] MEDS: TAPAZOLE PO SCH (09:10)
[2019-12-15] MEDS: NexIUM PO SCH (09:11)
[2019-12-15] MEDS: TAB-A-VITE PO SCH (09:11)
[2019-12-15] MEDS: SINGULAIR TAB 10 MG PO SCH (09:11)
[2019-12-15] MEDS: NAMENDA TAB 10 MG PO SCH (09:12)
[2019-12-15] MEDS: HEMOCYTE-PLUS PO SCH (09:12)
[2019-12-15] MEDS ORDERED: COLACE CAP 100 MG PO ONE (09:23)
[2019-12-15] MEDS ORDERED: MEGACE PO ONE (09:23)
[2019-12-15] MEDS ORDERED: COLACE CAP 100 MG PO SCH (10:00)
[2019-12-15] MEDS ORDERED: MEGACE PO SCH (10:00)
--- NOTE | 2019-12-15 11:23 | PCM.PROG ---
Progress Note - Progress Note for Day of Date of Exam: 12/13/19 - Subjective Subjective: IS BEING TREATED FOR PNEUMONIA, UTI, ACUTE HYPONATREMIA, AND A LIVER LESION. SHE WAS SWABBED FOR COVID-19, BUT RESULTS ARE PENDING. TODAY, SHE IS ALERT, LYING IN BED ON MORNING ROUNDS. SHE ANSWERS QUESTIONS APPROPRIATELY, BUT FAMILY REPORTS THAT SHE CONTNUES WITH CONFUSION AT TIMES. SHE REPORTS SHORTNESS OF BREATH AND WEAKNESS TODAY. ON EXAMINATION, HEART IS REGULAR IN RATE AND RHYTHM. BILATERAL LUNGS ARE NOTED WITH DIMINISHED LUNG SOUNDS THROUGHOUT. ABDOMEN IS ROUND, SOFT, AND NOTED WITH MILD SUPRAPUBIC TENDERNESS. NORMAL BOWEL SOUNDS ARE NOTED IN ALL QUADRANTS. HER VITALS THIS MORNING ARE: 98.7-64-20-95%-131/60. LABS WERE OBTAINED. ABNORMAL LAB VALUES INCLUDE THE FOLLOWING: HGB 10.7, HCT 31.7, SODIUM 134, ALT 10, TOTAL PROTEIN 6.0, ALBUMIN 2.6. COVID-19 PENDING. BLOOD CULTURES ARE ALSO PENDING. A CHEST XRAY WAS OBTAINED TODAY AND REVEALED: Right shoulder arthroplasty is again noted. Persistent alveolar airspace disease is seen in the right mid and right lower lung zone which is unchanged from the prior study. Small right pleural effusion is unchanged. Left lung is clear. Cardiomediastinal contour is stable. No gross pneumothorax is seen.A LIVER ULTRASOUND WAS OBTAINED YESTERDAY AND REVEALED: Multiple hypodensities in both the left and right lobe of the liver. These are all hypodense and have the appearance of simple cysts. They have sharp thin amaya, no internal echoes, no vascular flow. When compared to older studies most are stable but the L1 largest 1 in the left lobe of the liver is smaller than it was on the prior CT scan of the abdomen October 30, 2018. SHE IS CURRENTLY RECEIVING NORMAL SALINE AT 80 ML/HR, FORTAZ 1G IV Q8H, LEVAQUIN 500MG IV DAILY, ALBUMIN 25% IV DAILY, PROCALAMINE AT 40 ML/HR, AND HOME MEDICATIONS WERE RESUMED. WE WILL CONTINUE WITH CURRENT PLAN OF CARE TODAY AND START THE POTASSIUM AND MAGNESIUM PROTOCOLS. OTHERWISE, WE WILL FOLLOW UP WITH AM LABS AND CONTINUE TO MONITOR. - Past Medical Family Social History Past Med/Fam/Surg Hx: No changes since H&P Allergies: Allergies carbamazepine [From Tegretol] Allergy (Verified 08/14/19 11:40) Sulfa (Sulfonamide Antibiotics) [SULFA] Allergy (Verified 08/14/19 11:40) sulfamethoxazole [From Bactrim] Adverse Reaction (Verified 08/14/19 11:40) trimethoprim [From Bactrim] Adverse Reaction (Verified 08/14/19 11:40) - Review of Systems ROS: No change since H&P - Vital Signs and I&O's Vital Signs: Temperature 97.9 F Pulse Rate [Apical] 61 Pulse Rate 61 Respiratory Rate 18 Blood Pressure [Left Arm] 113/56 Blood Pressure [Right Arm] 129/60 Blood Pressure 132/75 O2 Sat by Pulse Oximetry 95 Intake and Output: Intake & Output 12/12/19 12/13/19 12/14/19 12/15/19 11:59 11:59 11:59 11:59 Intake Total 536 / 536 1647 / 1647 2200 / 2200 2720 / 2720 Output Total 575 / 575 550 / 550 3100 / 3100 425 / 425 Balance -39 / -39 1097 / 1097 -900 / -900 2295 / 2295 - Physical Exam Oriented: Normal Eyes: Normal Ear: Normal Nose: Normal Throat: Normal Respiratory: Generalized, Diminished Cardiovascular: Normal : Normal Auscultation: Bowel Sounds: Normal Palpation: Normal Tenderness: Normal Skin: Normal Musculoskeletal: Normal Psychiatric: Normal Mood Description: Calm Affect: Normal Speech Pattern: Clear - Laboratory and Diagnostics Result Diagrams: 12/15/19 05:22 12/15/19 05:22 Labs: 12/11/19 20:07 Blood Blood Culture - Preliminary 12/11/19 20:15 Blood Blood Culture - Preliminary Laboratory WBC 7.8 X10^3/uL (3.6-10.0) 12/15/19 05:22 RBC 3.65 X10^6/uL (3.5-5.4) 12/15/19 05:22 Hgb 10.4 g/dL (12.0-16.0) L 12/15/19 05:22 Hct 30.3 % (36.0-47.0) L 12/15/19 05:22 MCV 83.1 fL (80.0-100.0) 12/15/19 05:22 MCH 28.5 pg (27.0-34.0) 12/15/19 05:22 MCHC 34.3 g/dL (33.0-35.0) 12/15/19 05:22 RDW 14.6 % (11.6-16.5) 12/15/19 05:22 Plt Count 215 X10^3/uL (150.0-450.0) 12/15/19 05:22 MPV 6.9 fL (7.4-11.0) L 12/15/19 05:22 Neut % (Auto) 62.8 % (42.0-75.0) 12/15/19 05:22 Lymph % (Auto) 20.8 % (21.0-51.0) L 12/15/19 05:22 [place] % (Auto) 8.9 % (0.0-13.0) 12/15/19 05:22 Eos % (Auto) 6.9 % (0.9-2.9) H 12/15/19 05:22 Baso % (Auto) 0.6 % (0.2-1.0) 12/15/19 05:22 Neut # (Auto) 4.9 x10^3/uL (2.2-4.8) H 12/15/19 05:22 Lymph # (Auto) 1.6 X10^3/uL (1.3-2.9) 12/15/19 05:22 [place] # (Auto) 0.7 x10^3/uL (0.3-0.8) 12/15/19 05:22 Eos # (Auto) 0.5 x10^3/uL (0.0-0.2) H 12/15/19 05:22 Baso # (Auto) 0.0 X10^3/uL (0.0-0.1) 12/15/19 05:22 Absolute Nucleated RBC 0.0 /100WBC 12/15/19 05:22 ESR 18 MM/HOUR (0-20) 12/15/19 05:22 Sample Site Rr 12/15/19 07:50 ABG pH 7.470 (7.35-7.45) H 12/15/19 07:50 ABG pCO2 34.0 mmHg (35.0-45.0) L 12/15/19 07:50 ABG pO2 70.0 mmHg (80.0-100.0) L 12/15/19 07:50 ABG HCO3 24.7 mmol/L (22-26) 12/15/19 07:50 ABG O2 Saturation 95.0 % (90-100) 12/15/19 07:50 ABG Base Excess 1.4 mmol/L (-2.0-2.0) 12/15/19 07:50 Len Test Pos 12/15/19 07:50 A-a Gradient 37.0 mmHg 12/15/19 07:50 FiO2 21.0 12/15/19 07:50 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 12/15/19 07:50 Sodium 132 mmol/L (136-145) L 12/15/19 05:22 Corrected Sodium TNP 12/15/19 05:22 Potassium 4.0 mmol/L (3.5-5.1) 12/15/19 05:22 Chloride 99 mmol/L (98-107) 12/15/19 05:22 Carbon Dioxide 24.8 mmol/L (21-32) 12/15/19 05:22 BUN 10 mg/dL (7-18) 12/15/19 05:22 Creatinine 0.54 mg/dL (0.55-1.02) L 12/15/19 05:22 Est GFR (MDRD) Af Amer > 60 (>60) 12/15/19 05:22 Est GFR (MDRD) Non-Af > 60 (>60) 12/15/19 05:22 Glucose 93 mg/dL (65-99) 12/15/19 05:22 POC Glucose (mg/dL) 96 mg/dL (65-99) 12/12/19 11:50 Lactic Acid 0.8 mmol/L (0.4-2.0) 12/11/19 20:15 Calcium 8.8 mg/dL (8.5-10.1) 12/15/19 05:22 Corrected Calcium 9.6 mg/dL (8.5-10.1) 12/15/19 05:22 Magnesium 1.7 mg/dL (1.7-2.9) 12/13/19 03:58 Total Bilirubin 0.30 mg/dL (0.2-1.0) 12/15/19 05:22 AST 12 Units/L (15-37) L 12/15/19 05:22 ALT 10 Units/L (12-78) L 12/15/19 05:22 Alkaline Phosphatase 42 Units/L (46-116) L 12/15/19 05:22 Creatine Kinase 13 Units/L (26-192) L 12/11/19 20:15 CK-MB (CK-2) < 1.0 ng/mL (0-4.0) 12/11/19 20:15 CK/CKMB % Calc 7.7 % (<4) 12/11/19 20:15 Troponin I < 0.02 ng/mL (0-1.5) 12/11/19 20:15 C-Reactive Protein 87.90 mg/L (0-3.0) H 12/15/19 05:22 B-Natriuretic Peptide 89.2 pg/mL (0-79) H 12/11/19 20:05 Total Protein 6.1 g/dL (6.4-8.2) L 12/15/19 05:22 Albumin 3.0 g/dL (3.4-5.0) L 12/15/19 05:22 Globulin 3.1 g/dL (2.5-4.5) 12/15/19 05:22 Albumin/Globulin Ratio 1.0 Ratio (1.1-2.1) L 12/15/19 05:22 Specimen Type Catherized urine 12/12/19 14:17 Urine Color Yellow (YELLOW) 12/12/19 14:17 Urine Appearance Clear (CLEAR) 12/12/19 14:17 Urine pH 8.0 (5.0 - 8.0) 12/12/19 14:17 Ur Specific [place] 1.010 (1.000-1.030) 12/12/19 14:17 Urine Protein Negative (NEGATIVE) 12/12/19 14:17 Urine Glucose (UA) Negative (NEGATIVE) 12/12/19 14:17 Urine Ketones Negative (NEGATIVE) 12/12/19 14:17 Urine Occult Blood Negative (NEGATIVE) 12/12/19 14:17 Urine Nitrite Negative (NEGATIVE) 12/12/19 14:17 Urine Bilirubin Negative (NEGATIVE) 12/12/19 14:17 Urine Urobilinogen Normal (NORMAL) 12/12/19 14:17 Ur Leukocyte Esterase 3+ (NEGATIVE) 12/12/19 14:17 Urine RBC None seen /HPF (0-3) 12/12/19 14:17 Urine WBC 3-5 /HPF (0-5) 12/12/19 14:17 Ur Squamous Epith Cells Negative /HPF (NEGATIVE) 12/12/19 14:17 Urine Bacteria Negative /HPF (NEGATIVE) 12/12/19 14:17 Ur Culture Indicated? No/not indicated 12/12/19 14:17 - Plan (1) Pneumonia Status: Acute Qualifiers: Pneumonia type: due to unspecified organism Laterality: right Lung location: lower lobe of lung Qualified Code(s): J18.9 - Pneumonia, unspecified organism Plan: IV FORTAZ, IV LEVAQUIN, CONTINUE TO MONITOR (2) Urinary tract infection Status: Acute Qualifiers: Urinary tract infection type: acute cystitis Hematuria presence: without hematuria Qualified Code(s): N30.00 - Acute cystitis without hematuria Plan: IV FORTAZ, IV LEVAQUIN, CONTINUE TO MONITOR (3) Acute hyponatremia Status: Acute Plan: NS AT 80 ML/HR, CONTINUE TO MONITOR (4) Hypokalemia Status: Acute Plan: POTASSIUM PROTOCOL, CONTINUE TO MONITOR (5) Lesion of liver Status: Acute (6) Thyroid mass Status: Chronic
--- NOTE | 2019-12-15 11:26 | PCM.PROG ---
Progress Note - Progress Note for Day of Date of Exam: 12/14/19 - Subjective Subjective: IS BEING TREATED FOR PNEUMONIA, UTI, ACUTE HYPONATREMIA, AND A LIVER LESION. SHE WAS SWABBED FOR COVID-19, BUT RESULTS ARE PENDING. TODAY, SHE IS ALERT, LYING IN BED ON MORNING ROUNDS. SHE IS ALERT AND ORIENTED, LYING IN BED ON MORNING ROUNDS. SHE REPORTS SHORTNESS OF BREATH AND WEAKNESS TODAY, BUT REPORTS SLIGHT IMPROVEMENT SINCE YESTERDAY. ON EXAMINATION, HEART IS REGULAR IN RATE AND RHYTHM. BILATERAL LUNGS ARE NOTED WITH DIMINISHED LUNG SOUNDS THROUGHOUT. ABDOMEN IS ROUND, SOFT, AND NOTED WITH MILD SUPRAPUBIC TENDERNESS. NORMAL BOWEL SOUNDS ARE NOTED IN ALL QUADRANTS. HER VITALS THIS MORNING ARE: 98.1-70-18-96%-122/56. LABS WERE OBTAINED. ABNORMAL LAB VALUES INCLUDE THE FOLLOWING: HGB 10.8, HCT 32.1, SODIUM 133, AST 11, TOTAL PROTEIN 6.1, ALBUMIN 2.8. BLOOD CULTURES ARE ALSO PENDING. A CHEST XRAY WAS OBTAINED TODAY AND REVEALED: Worsening pleural parenchymal opacity the right base consistent with underlying infiltrate and layering pleural effusion. SHE IS CURRENTLY RECEIVING NORMAL SALINE AT 80 ML/HR, FORTAZ 1G IV Q8H, LEVAQUIN 500MG IV DAILY, ALBUMIN 25% IV DAILY, PROCALAMINE AT 40 ML/HR, THE POTASSIUM AND MAGNESIUM PROTOCOLS, AND HOME MEDICATIONS WERE RESUMED. WE WILL CONTINUE WITH CURRENT PLAN OF CARE TODAY. OTHERWISE, WE WILL FOLLOW UP WITH AM LABS AND ADILSON MARIN TO MONITOR. - Past Medical Family Social History Past Med/Fam/Surg Hx: No changes since H&P Allergies: Allergies carbamazepine [From Tegretol] Allergy (Verified 08/14/19 11:40) Sulfa (Sulfonamide Antibiotics) [SULFA] Allergy (Verified 08/14/19 11:40) sulfamethoxazole [From Bactrim] Adverse Reaction (Verified 08/14/19 11:40) trimethoprim [From Bactrim] Adverse Reaction (Verified 08/14/19 11:40) - Review of Systems ROS: No change since H&P - Vital Signs and I&O's Vital Signs: Temperature 97.9 F Pulse Rate [Apical] 61 Pulse Rate 61 Respiratory Rate 18 Blood Pressure [Left Arm] 113/56 Blood Pressure [Right Arm] 129/60 Blood Pressure 132/75 O2 Sat by Pulse Oximetry 95 Intake and Output: Intake & Output 12/12/19 12/13/19 12/14/19 12/15/19 11:59 11:59 11:59 11:59 Intake Total 536 / 536 1647 / 1647 2200 / 2200 2720 / 2720 Output Total 575 / 575 550 / 550 3100 / 3100 425 / 425 Balance -39 / -39 1097 / 1097 -900 / -900 2295 / 2295 - Physical Exam Oriented: Normal Eyes: Normal Ear: Normal Nose: Normal Throat: Normal Respiratory: Generalized, Diminished Cardiovascular: Normal : Normal Auscultation: Bowel Sounds: Normal Palpation: Normal Tenderness: Normal Skin: Normal Musculoskeletal: Normal Psychiatric: Normal Mood Description: Calm Affect: Normal Speech Pattern: Clear - Laboratory and Diagnostics Result Diagrams: 12/15/19 05:22 12/15/19 05:22 Labs: 12/11/19 20:07 Blood Blood Culture - Preliminary 12/11/19 20:15 Blood Blood Culture - Preliminary Laboratory WBC 7.8 X10^3/uL (3.6-10.0) 12/15/19 05:22 RBC 3.65 X10^6/uL (3.5-5.4) 12/15/19 05:22 Hgb 10.4 g/dL (12.0-16.0) L 12/15/19 05:22 Hct 30.3 % (36.0-47.0) L 12/15/19 05:22 MCV 83.1 fL (80.0-100.0) 12/15/19 05:22 MCH 28.5 pg (27.0-34.0) 12/15/19 05:22 MCHC 34.3 g/dL (33.0-35.0) 12/15/19 05:22 RDW 14.6 % (11.6-16.5) 12/15/19 05:22 Plt Count 215 X10^3/uL (150.0-450.0) 12/15/19 05:22 MPV 6.9 fL (7.4-11.0) L 12/15/19 05:22 Neut % (Auto) 62.8 % (42.0-75.0) 12/15/19 05:22 Lymph % (Auto) 20.8 % (21.0-51.0) L 12/15/19 05:22 [place] % (Auto) 8.9 % (0.0-13.0) 12/15/19 05:22 Eos % (Auto) 6.9 % (0.9-2.9) H 12/15/19 05:22 Baso % (Auto) 0.6 % (0.2-1.0) 12/15/19 05:22 Neut # (Auto) 4.9 x10^3/uL (2.2-4.8) H 12/15/19 05:22 Lymph # (Auto) 1.6 X10^3/uL (1.3-2.9) 12/15/19 05:22 [place] # (Auto) 0.7 x10^3/uL (0.3-0.8) 12/15/19 05:22 Eos # (Auto) 0.5 x10^3/uL (0.0-0.2) H 12/15/19 05:22 Baso # (Auto) 0.0 X10^3/uL (0.0-0.1) 12/15/19 05:22 Absolute Nucleated RBC 0.0 /100WBC 12/15/19 05:22 ESR 18 MM/HOUR (0-20) 12/15/19 05:22 Sample Site Rr 12/15/19 07:50 ABG pH 7.470 (7.35-7.45) H 12/15/19 07:50 ABG pCO2 34.0 mmHg (35.0-45.0) L 12/15/19 07:50 ABG pO2 70.0 mmHg (80.0-100.0) L 12/15/19 07:50 ABG HCO3 24.7 mmol/L (22-26) 12/15/19 07:50 ABG O2 Saturation 95.0 % (90-100) 12/15/19 07:50 ABG Base Excess 1.4 mmol/L (-2.0-2.0) 12/15/19 07:50 Len Test Pos 12/15/19 07:50 A-a Gradient 37.0 mmHg 12/15/19 07:50 FiO2 21.0 12/15/19 07:50 Blood 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 12/15/19 07:50 Sodium 132 mmol/L (136-145) L 12/15/19 05:22 Corrected Sodium TNP 12/15/19 05:22 Potassium 4.0 mmol/L (3.5-5.1) 12/15/19 05:22 Chloride 99 mmol/L (98-107) 12/15/19 05:22 Carbon Dioxide 24.8 mmol/L (21-32) 12/15/19 05:22 BUN 10 mg/dL (7-18) 12/15/19 05:22 Creatinine 0.54 mg/dL (0.55-1.02) L 12/15/19 05:22 Est GFR (MDRD) Af Amer > 60 (>60) 12/15/19 05:22 Est GFR (MDRD) Non-Af > 60 (>60) 12/15/19 05:22 Glucose 93 mg/dL (65-99) 12/15/19 05:22 POC Glucose (mg/dL) 96 mg/dL (65-99) 12/12/19 11:50 Lactic Acid 0.8 mmol/L (0.4-2.0) 12/11/19 20:15 Calcium 8.8 mg/dL (8.5-10.1) 12/15/19 05:22 Corrected Calcium 9.6 mg/dL (8.5-10.1) 12/15/19 05:22 Magnesium 1.7 mg/dL (1.7-2.9) 12/13/19 03:58 Total Bilirubin 0.30 mg/dL (0.2-1.0) 12/15/19 05:22 AST 12 Units/L (15-37) L 12/15/19 05:22 ALT 10 Units/L (12-78) L 12/15/19 05:22 Alkaline Phosphatase 42 Units/L (46-116) L 12/15/19 05:22 Creatine Kinase 13 Units/L (26-192) L 12/11/19 20:15 CK-MB (CK-2) < 1.0 ng/mL (0-4.0) 12/11/19 20:15 CK/CKMB % Calc 7.7 % (<4) 12/11/19 20:15 Troponin I < 0.02 ng/mL (0-1.5) 12/11/19 20:15 C-Reactive Protein 87.90 mg/L (0-3.0) H 12/15/19 05:22 B-Natriuretic Peptide 89.2 pg/mL (0-79) H 12/11/19 20:05 Total Protein 6.1 g/dL (6.4-8.2) L 12/15/19 05:22 Albumin 3.0 g/dL (3.4-5.0) L 12/15/19 05:22 Globulin 3.1 g/dL (2.5-4.5) 12/15/19 05:22 Albumin/Globulin Ratio 1.0 Ratio (1.1-2.1) L 12/15/19 05:22 Specimen Type Catherized urine 12/12/19 14:17 Urine Color Yellow (YELLOW) 12/12/19 14:17 Urine Appearance Clear (CLEAR) 12/12/19 14:17 Urine pH 8.0 (5.0 - 8.0) 12/12/19 14:17 Ur Specific [place] 1.010 (1.000-1.030) 12/12/19 14:17 Urine Protein Negative (NEGATIVE) 12/12/19 14:17 Urine Glucose (UA) Negative (NEGATIVE) 12/12/19 14:17 Urine Ketones Negative (NEGATIVE) 12/12/19 14:17 Urine Occult Blood Negative (NEGATIVE) 12/12/19 14:17 Urine Nitrite Negative (NEGATIVE) 12/12/19 14:17 Urine Bilirubin Negative (NEGATIVE) 12/12/19 14:17 Urine Urobilinogen Normal (NORMAL) 12/12/19 14:17 Ur Leukocyte Esterase 3+ (NEGATIVE) 12/12/19 14:17 Urine RBC None seen /HPF (0-3) 12/12/19 14:17 Urine WBC 3-5 /HPF (0-5) 12/12/19 14:17 Ur Squamous Epith Cells Negative /HPF (NEGATIVE) 12/12/19 14:17 Urine Bacteria Negative /HPF (NEGATIVE) 12/12/19 14:17 Ur Culture Indicated? No/not indicated 12/12/19 14:17 - Plan (1) Pneumonia Status: Acute Qualifiers: Pneumonia type: due to unspecified organism Laterality: right Lung location: lower lobe of lung Qualified Code(s): J18.9 - Pneumonia, unspecified organism Plan: IV FORTAZ, IV LEVAQUIN, CONTINUE TO MONITOR (2) Urinary tract infection Status: Acute Qualifiers: Urinary tract infection type: acute cystitis Hematuria presence: without hematuria Qualified Code(s): N30.00 - Acute cystitis without hematuria Plan: IV FORTAZ, IV LEVAQUIN, CONTINUE TO MONITOR (3) Acute hyponatremia Status: Acute Plan: NS AT 80 ML/HR, CONTINUE TO MONITOR (4) Hypokalemia Status: Acute Plan: POTASSIUM PROTOCOL, CONTINUE TO MONITOR (5) Lesion of liver Status: Acute (6) Thyroid mass Status: Chronic
[2019-12-15 15:39] VITALS: BP 119/56
[2019-12-17] MEDS ORDERED: VITAMIN D (1.25MG) PO SCH (10:56)
== END 2019-12-15 13:25 | disposition home or self-care (01) | DRG 194 ==
LOC: OBS 19:18 → ER 19:18 → OBSVTOIN 22:49 → OBS 12-12 01:10 → ICU 12-12 15:47
PROVIDERS: ADMIT Internal Medicine; ATTEND Internal Medicine
DX: E87.6 Hypokalemia; J90 Pleural effusion, not elsewhere classified; I95.89 Other hypotension; Z11.59 Encounter for screening for other viral diseases; E04.9 Nontoxic goiter, unspecified; K76.89 Other specified diseases of liver; R06.02 Shortness of breath; E87.1 Hypo-osmolality and hyponatremia; J18.9 Pneumonia, unspecified organism; R41.82 Altered mental status, unspecified; R63.0 Anorexia; R53.1 Weakness

== ENCOUNTER 2020-01-10 13:06 | Observation (INO) ==
[2020-01-10] MEDS ORDERED: NS 1000 ML 1,000 ML IV ONE (13:27)
--- NOTE | 2020-01-10 13:27 | DR.DIZZY ---
HPI Time seen Time Seen by Provider: 01/10/20 13:26 HPI Comment HPI Comment: 84 yo cf w/ pmg htn, gerd, a flutter presents w/ ams x 3 days. Increasing confusion/ agitation. Decreased oral intake/ appetite. No f/c, n/v/d, abd pain, back pain, head injury/ fall, sick exposure or recent travel. No urinary sx's. Complaint Chief Complaint:: PT'S FAMILY STATED PT HAS NOT BEEN EATING AND IS DEHYDRATED. FAMILY STATED PT'S NEEDED FLUIDS COVID-19 Coronavirus risk:travel/contact w/high risk person: No Has patient experienced Coronavirus symptoms: No Source History Provided: Patient Mode of Arrival Mode of Arrival: EMS Timing Onset of Chief Complaint: 01/10/20 Came on: Suddenly Duration Duration: Since Onset How lon Duration: Days Location of Weakness Weakness Location: Generalized Context Onset: At rest and With light exertion History of: denies Anemia, CVA and ID Stroke Symptoms: None; denies Ataxia, Weakness of limb, Numbness of limbs and Slurring Severity Severity: Normal activity level Modifying factors Worsens: denies Change in Position Associated signs and symptoms Associated Signs and Symptoms: Weak; denies Faintness, Syncope, Near Syncope, Vertigo, Tinnitus, Numb, Difficult Speech, Change of Vision, Fever, Headache, Chest Pain, Palpitations, Nausea, Vomiting and GI Bleed PMH PMH Past Medical History: Yes Past Medical History: Dementia and GERD Past Surgical History: Yes Surgical History: Abdominal Surgery, Bowel Resection, 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, Joint R eplacement and Ortho Surgery Family History History of Family Medical Conditions: Yes Family Medical History: Cancer, ID and Hypertension Social History Does any household member use tobacco: No Alcohol Use: None Do you use any recreational Drugs:: No Lives With: Family Lives Where: Home Travel Risk Coronavirus risk:travel/contact w/high risk person: No Has patient experienced Coronavirus symptoms: No Infectious screening In the last 2 months have you had wt loss of >10#?: NO Have you had fever, night sweats or hemotysis?: No Have you traveled outside the country in the last 6 months?: No Isolation: Standard ROS Review of Systems Constitutional: Malaise and Fatigue; negative Chills and Fever Eyes: No Symptoms Reported ENTM: No Symptoms Reported Respiratoy: No Symptoms Reported Cardiovascular: No Symptoms Reported Gastrointestinal/Abdominal: negative Abdominal Pain, Constipation, Diarrhea, Nausea and Vomiting Genitourinary: negative Dysuria, Frequency and Hematuria Neurological: No Symptoms Reported Musculoskeletal: No Symptoms Reported Integumentary: No Symptoms Reported Hematologic/Lymphatic: No Symptoms Reported Endocrine: No Symptoms Reported Psychiatric: No Symptoms Reported All Other Systems: Reviewed and Negative PE Vital Signs Vitals: Temperature 97.9 F Pulse Rate 87 Respiratory Rate 20 Blood Pressure [Left Arm] 113/56 Blood Pressure [Right Arm] 119/56 Blood Pressure 128/56 O2 Sat by Pulse Oximetry 96 General Limitations: Altered Mental Status General Appearance: Alert and Other (midlly aggitated, a/o x 2, disoreiented to year/ month ) Head Head Exam: Normal Inspection Eyes Eye exam: Normal Appearance ENT ENT Exam: Normal Exam, Normal Oropharynx and Normal External Ear Exam Neck Neck Exam: Normal Inspection and Full ROM Chest Chest Inspection: Normal Inspection Respiratory Respiratory Exam: Normal Lung Sounds Bilat Cardiovascular Cardiovascular Exam: Regular Rate and Normal Rhythm Abdominal Exam Abdominal Exam: Normal Inspection, Normal Bowel Sounds and Soft Rectal Rectal Exam: Deferred Extremeties Extremities Exam: Normal Inspection and Full ROM Back Back Exam: Normal Inspection and Full ROM Neurologic Neurological Exam: Alert and CN II-XII Intact; negative Oriented X3 (disoriented to year, no pronator drift, no aphasia or dysarthria ) Patient Oriented To: Person and Place Speech: Fluid Speech Cranial Nerve Exam: EOM Function (II, III, IV, ): Normal, Facial Sensation (V): Normal, Facial Palsy (VII): Normal, Gag reflex (XI): Normal, Spinal Accessory Function (XI): Normal and Tongue Deviation: Normal Motor Strength - LUE: 5/5 Motor Strength - RUE: 5/5 Motor Strength - LLE: 5/5 Motor Strength - RLE: 5/5 Psychiatric Psychiatric Exam: Agitated and Anxious Skin Skin Exam: Warm and Dry MDM Additional Information Obtained Additional Information Obtained From: Family Differential Diagnosis Differential Diagnosis: CVA, Dehydration, Electrolyte disorder, Myocardial infarction and TIA COURSE Treatment Treatment: 84 yo f presents w/ confusion and decreased appetite. afebrile. UA negative. CTH negative. Neuro exam non focal. IVF bolus given. Ketones present in urine c/w dehydration. Will admit for further eval of ams and dehydration. d/w hospitalist vocational examiner whom agrees to admit. Education/Counseling Education/Counseling: Patient and Family Educated On: Treatment, Diagnosis, Prognosis and Needs for Follow Up ROR Labs Reviewed Laboratory Results Reviewed?: Yes Result Diagrams: 01/10/20 13:16 01/10/20 13:16 Laboratory: WBC 10.1 X10^3/uL (3.6-10.0) H 01/10/20 13:16 RBC 4.05 X10^6/uL (3.5-5.4) 01/10/20 13:16 Hgb 10.9 g/dL (12.0-16.0) L 01/10/20 13:16 Hct 32.5 % (36.0-47.0) L 01/10/20 13:16 MCV 80.2 fL (80.0-100.0) 01/10/20 13:16 MCH 26.9 pg (27.0-34.0) L 01/10/20 13:16 MCHC 33.5 g/dL (33.0-35.0) 01/10/20 13:16 RDW 15.3 % (11.6-16.5) 01/10/20 13:16 Plt Count 317 X10^3/uL (150.0-450.0) 01/10/20 13:16 MPV 7.0 fL (7.4-11.0) L 01/10/20 13:16 Neut % (Auto) 72.1 % (42.0-75.0) 01/10/20 13:16 Lymph % (Auto) 17.4 % (21.0-51.0) L 01/10/20 13:16 [place] % (Auto) 7.9 % (0.0-13.0) 01/10/20 13:16 Eos % (Auto) 1.8 % (0.9-2.9) 01/10/20 13:16 Baso % (Auto) 0.8 % (0.2-1.0) 01/10/20 13:16 Neut # (Auto) 7.3 x10^3/uL (2.2-4.8) H 01/10/20 13:16 Lymph # (Auto) 1.8 X10^3/uL (1.3-2.9) 01/10/20 13:16 [place] # (Auto) 0.8 x10^3/uL (0.3-0.8) 01/10/20 13:16 Eos # (Auto) 0.2 x10^3/uL (0.0-0.2) 01/10/20 13:16 Baso # (Auto) 0.1 X10^3/uL (0.0-0.1) 01/10/20 13:16 Absolute Nucleated RBC 0.0 /100WBC 01/10/20 13:16 Sodium 136 mmol/L (136-145) 01/10/20 13:16 Corrected Sodium TNP 01/10/20 13:16 Potassium 4.1 mmol/L (3.5-5.1) 01/10/20 13:16 Chloride 101 mmol/L (98-107) 01/10/20 13:16 Carbon Dioxide 23.8 mmol/L (21-32) 01/10/20 13:16 BUN 15 mg/dL (7-18) 01/10/20 13:16 Creatinine 0.78 mg/dL (0.55-1.02) 01/10/20 13:16 Est GFR (MDRD) Af Amer > 60 (>60) 01/10/20 13:16 Est GFR (MDRD) Non-Af > 60 (>60) 01/10/20 13:16 Glucose 83 mg/dL (65-99) 01/10/20 13:16 Calcium 9.7 mg/dL (8.5-10.1) 01/10/20 13:16 Troponin I < 0.02 ng/mL (0-1.5) 01/10/20 13:16 Specimen Type Clean catch urine 01/10/20 14:40 Urine Color Yellow (YELLOW) 01/10/20 14:40 Urine Appearance Cloudy (CLEAR) 01/10/20 14:40 Urine pH 6.0 (5.0 - 8.0) 01/10/20 14:40 Ur Specific [place] 1.020 (1.000-1.030) 01/10/20 14:40 Urine Protein Negative (NEGATIVE) 01/10/20 14:40 Urine Glucose (UA) Negative (NEGATIVE) 01/10/20 14:40 Urine Ketones 1+ (NEGATIVE) 01/10/20 14:40 Urine Occult Blood 1+ (NEGATIVE) 01/10/20 14:40 Urine Nitrite Negative (NEGATIVE) 01/10/20 14:40 Urine Bilirubin Negative (NEGATIVE) 01/10/20 14:40 Urine Urobilinogen Normal (NORMAL) 01/10/20 14:40 Ur Leukocyte Esterase 1+ (NEGATIVE) 01/10/20 14:40 Urine RBC 0-2 /HPF (0-3) 01/10/20 14:40 Urine WBC 0-2 /HPF (0-5) 01/10/20 14:40 Ur Squamous Epith Cells Few /HPF (NEGATIVE) 01/10/20 14:40 Amorphous Sediment 3+ /HPF (NEGATIVE) 01/10/20 14:40 Urine Bacteria Trace /HPF (NEGATIVE) 01/10/20 14:40 Ur Culture Indicated? No/not indicated 01/10/20 14:40 XRAY XRAY Interpreted by: Radiologist X-ray Results: ct head unremarkable for acute changes cxr with chronic left plural effusion EKG Rhythm: NSR Block: IVCD Hypertrophy: None ST: Nonsp Opioid Opioid Risk Tool Age ([place] if 16-45): No History of Preadolescent Sexual Abuse: No Total: 0 Total Score Risk Category: Low Risk Copyright: [facility] predicting aberrant behaviors Diagnosis Discharge Problem: H/O atrial flutter, Hyperthyroidism, Weakness, Acute dehydration AMS (altered mental status) Qualifiers: Altered mental status type: delirium Qualified Code(s): R41.0 - Disorientation, unspecified Hypertension Qualifiers: Hypertension type: essential hypertension Qualified Code(s): I10 - Essential (primary) hypertension Instructions Forms: Excuse From Work Patient Portal Social Distancing
[2020-01-10] MEDS ORDERED: NS 1000 ML 1,000 ML ONE (13:36)
[2020-01-10 13:38] LABS: BASOPHILS # (AUTO) 0.1 X10^3/uL (0.0-0.1); BASOPHILS % (AUTO) 0.8 % (0.2-1.0); EOSINOPHILS # (AUTO) 0.2 x10^3/uL (0.0-0.2); EOSINOPHILS % (AUTO) 1.8 % (0.9-2.9); HEMATOCRIT 32.5 % (36.0-47.0); HEMOGLOBIN 10.9 g/dL (12.0-16.0); LYMPHOCYTES # (AUTO) 1.8 X10^3/uL (1.3-2.9); LYMPHOCYTES % (AUTO) 17.4 % (21.0-51.0); MEAN CORPUSCULAR HEMOGLOBIN 26.9 pg (27.0-34.0); MEAN CORPUSCULAR HGB CONC 33.5 g/dL (33.0-35.0); MEAN CORPUSCULAR VOLUME 80.2 fL (80.0-100.0); MONOCYTES # (AUTO) 0.8 x10^3/uL (0.3-0.8); MONOCYTES % (AUTO) 7.9 % (0.0-13.0); NEUTROPHILS # (AUTO) 7.3 x10^3/uL (2.2-4.8); NEUTROPHILS % (AUTO) 72.1 % (42.0-75.0); PLATELET COUNT 317 X10^3/uL (150.0-450.0); RED BLOOD COUNT 4.05 X10^6/uL (3.5-5.4); RED CELL DISTRIBUTION WIDTH 15.3 % (11.6-16.5); WHITE BLOOD COUNT 10.1 X10^3/uL (3.6-10.0)
[2020-01-10 13:40] LABS: BLOOD UREA NITROGEN 15 mg/dL (7-18); CALCIUM 9.7 mg/dL (8.5-10.1); CARBON DIOXIDE 23.8 mmol/L (21-32); CHLORIDE 101 mmol/L (98-107); CREATININE 0.78 mg/dL (0.55-1.02); SODIUM 136 mmol/L (136-145); eGFR NON BLACK RACES > 60 (>60)
--- NOTE | 2020-01-10 13:44 | RAD ---
HISTORYRecheck this no appetiteSTUDYPortable AP [id number] upper normal heart size with dilated aorta and brachioceph alic vessels. The left lung is clear of active disease. There is pleural-parenchymal opacity at the r ight base partly obscuring the diaphragm and costophrenic angle. The right upper lung is relatively c lear.IMPRESSIONPersistent abnormality at the right base with some interval improvement since 12/15/19 20. A previous chest CT has described a loculated right pleural effusion with compressive right basal atelectasis. Continued follow-up indicated to determine stability or resolution.Electronically jada d by: NATE SON (January 10, 2020 13:42:44)
[2020-01-10 14:50] LABS: BILIRUBIN,URINE NEGATIVE (NEGATIVE); BLOOD/HEMOGLOBIN,URINE 1+ (NEGATIVE); GLUCOSE, URINE NEGATIVE (NEGATIVE); KETONES,URINE 1+ (NEGATIVE); LEUKOCYTE ESTERASE ,URINE 1+ (NEGATIVE); NITRITES,URINE NEGATIVE (NEGATIVE); PROTEIN,URINE NEGATIVE (NEGATIVE); UROBILINOGEN,URINE NORMAL (NORMAL)
[2020-01-10 15:02] LABS: AMORPHOUS SEDIMENT,UR 3+ /HPF (NEGATIVE); APPEARANCE,URINE CLOUDY (CLEAR); BACTERIA,URINE TRACE /HPF (NEGATIVE); COLOR,URINE YELLOW (YELLOW); RBC,URINE 0-2 /HPF (0-3); SQUAMOUS EPITHELIAL CELL,UR FEW /HPF (NEGATIVE)
--- NOTE | 2020-01-10 15:37 | CT ---
HISTORYWeakness.STUDYBRAIN W/O CONCOMPARISONApril 2019.TECHNIQUEMultiple axial images of the head were obtained from the skull base to the vertex without administration of IV contrast. Sagittal and coronal reformatted images were performed. Automated exposure control (AEC) was utilized to adjust the MA and/or kV.FINDINGSThe sulci, cisterns and ventricles are prominent consistent with diffuse volume loss. There are confluent and scattered foci of low attenuation in the periventricular and subcortical white matter of both hemispheres. This is a nonspecific finding which likely represents microangiopathic change in a patient of this age.There is no evidence of acute territorial infarction, hemorrhage, mass, mass effect or midline shift. There are no abnormal intra-axial or extra-axial fluid collections.The visualized paranasal sinuses and mastoid air cells are predominantly clear. There is no evidence of acute osseous abnormality or significant soft tissue swelling.IMPRESSION1. No evidence of acute intracranial abnormality.2. Nonspecific white matter change and volume loss.3. If there is strong clinical concern for acute infarction, then an MRI examination of the brain could be performed for further evaluation. However, if there are no deficits on neurologic exam, there are no abnormalities identified on this study which require immediate imaging follow-up on an emergent basis. Follow-up MRI could be considered on an outpatient basis as clinically warranted.Electronically signed by: PERCY VILLELA (January 10, 2020 15:35:46)
[2020-01-10] MEDS ORDERED: GEODON PO ONE ×2 (16:23→18:31)
[2020-01-10] MEDS ORDERED: DUONEB 0.5 MG/3 MG (3 mL) NEB PRN (18:19)
[2020-01-10] MEDS: NS 1000 ML 1,000 ML IV SCH (19:35)
[2020-01-11] MEDS: NS 1000 ML 1,000 ML IV SCH ×2 (01:07→05:27)
[2020-01-11 02:15] VITALS: BMI 23.3
[2020-01-11] MEDS ORDERED: TAPAZOLE PO SCH (09:15)
[2020-01-11] MEDS ORDERED: TAPAZOLE ONE (09:41)
[2020-01-11] MEDS ORDERED: NexIUM PO SCH (10:00)
[2020-01-11 10:25] LABS: BLOOD UREA NITROGEN 13 mg/dL (7-18); CALCIUM 8.5 mg/dL (8.5-10.1); CARBON DIOXIDE 20.7 mmol/L (21-32); CHLORIDE 107 mmol/L (98-107); CREATININE 0.64 mg/dL (0.55-1.02); FREE T4 (FREE THYROXINE) 1.04 ng/dL (0.76-1.46); MAGNESIUM 1.5 mg/dL (1.7-2.9); SODIUM 139 mmol/L (136-145); TSH (3RD GENERATION) 1.538 uIU/mL (0.358-3.74); eGFR NON BLACK RACES > 60 (>60)
[2020-01-11] MEDS ORDERED: MAG-OX TAB PO ONE (10:33)
--- NOTE | 2020-01-11 11:06 | DR.SSS ---
SHORT STAY SUMMARY Admission Date Date of Admission: 01/10/20 Discharge Date Discharge Date: 01/11/20 Admission Diagnoses Admission Diagnoses: Altered mental status Dehydration Discharge Diagnoses Discharge Diagnoses: Dehydration Hypomagnesemia Altered mental status Chief Complaint Chief Complaint: agitation, confusion, poor oral intake History of Present Illness History of Present Illness: Ms. Vallecillo is a 84y/o female who was brought in by family members due to confusion and poor oral intake. Daughter states patient was not eating much for the past few days. She was confused and agitated. Patient has not been sick, no fever or chills. Denies N/V/D or abdominal pain. Denies recent changes in medications. ED work-up - Labs: hgb 10.9 UA: neg for infection, Mag 1.5 - CT-head negative, COVID-19 negative - CXR: persistent Right sided infiltrate/effusion that has been present from before Patient was admitted for hydration with IV fluids. 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, Joint Replacement, Ortho Surgery and Other Allergies Allergies Allergy/AdvReac Type Severity Reaction Status Date / Time carbamazepine [From Tegretol] Allergy Verified 08/14/19 11:40 Sulfa (Sulfonamide Allergy Verified 08/14/19 11:40 Antibiotics) [SULFA] sulfamethoxazole AdvReac Verified 08/14/19 11:40 [From Bactrim] trimethoprim [From Bactrim] AdvReac Verified 08/14/19 11:40 Medications Home Medications: carbamazepine [From Tegretol] Allergy (Verified 08/14/19 11:40) Sulfa (Sulfonamide Antibiotics) [SULFA] Allergy (Verified 08/14/19 11:40) sulfamethoxazole [From Bactrim] Adverse Reaction (Verified 08/14/19 11:40) trimethoprim [From Bactrim] Adverse Reaction (Verified 08/14/19 11:40) CONTINUE taking the following medications alum-mag hydroxide-simeth [Maalox Maximum Strength] 20 ml PO Q6H 01/10/20 [History] [id number]-copper-onur [Citracal-D3 Maximum Plus] 650 tab PO BID 01/10/20 [History] esomeprazole magnesium 40 mg PO DAILY 01/10/20 [History] fexofenadine-pseudoephedrine [Rosey-D 24 Hour] 1 tab PO DAILY 01/10/20 [History] magnesium glycinate 665 mg PO BID 01/10/20 [History] polyethylene glycol 3350 [Miralax] 01/10/20 [History] tizanidine [Zanaflex] 4 mg PO HS PRN MDD 1 01/10/20 [History] tramadol 50 mg PO Q6H PRN 01/10/20 [History] Family History Family Medical History: Cancer, [place] and Hypertension Social History Does any household member use tobacco: No Alcohol Use: None Drug Use: None Review of Systems Constitutional: Weakness; denies Fever, Chills and Malaise Eyes: No Symptoms Reported ENT: No Symptoms Reported Respiratory: No Symptoms Reported Cardiovascular: No Symptoms Reported Gastrointestinal: No Symptoms Reported Genitourinary: No Symptoms Reported Musculoskeletal: No Symptoms Reported Skin: No Symptoms Reported Neurological: Confusion Physical Exam Vital Signs: Last Vital Signs Temp 98.3 F 01/11/20 07:50 Pulse 85 01/11/20 07:50 Resp 18 01/11/20 07:50 BP 129/60 01/11/20 07:50 Pulse Ox 94 L 01/11/20 07:50 Oriented: Normal Eyes: Normal Ear: Normal Nose: Normal Respiratory: Diminished Throughout Cardiovascular: Normal Auscultation: Bowel Sounds: Normal Palpation: Normal Tenderness: Normal Skin: Normal Musculoskeletal: Normal Psychiatric: Normal Mood Description: Angry Affect: Flat Speech Pattern: Clear and Appropriate Labs Labs: Laboratory Last Values WBC 10.1 X10^3/uL (3.6-10.0) H 01/10/20 13:16 RBC 4.05 X10^6/uL (3.5-5.4) 01/10/20 13:16 Hgb 10.9 g/dL (12.0-16.0) L 01/10/20 13:16 Hct 32.5 % (36.0-47.0) L 01/10/20 13:16 MCV 80.2 fL (80.0-100.0) 01/10/20 13:16 MCH 26.9 pg (27.0-34.0) L 01/10/20 13:16 MCHC 33.5 g/dL (33.0-35.0) 01/10/20 13:16 RDW 15.3 % (11.6-16.5) 01/10/20 13:16 Plt Count 317 X10^3/uL (150.0-450.0) 01/10/20 13:16 MPV 7.0 fL (7.4-11.0) L 01/10/20 13:16 Neut % (Auto) 72.1 % (42.0-75.0) 01/10/20 13:16 Lymph % (Auto) 17.4 % (21.0-51.0) L 01/10/20 13:16 Pepin % (Auto) 7.9 % (0.0-13.0) 01/10/20 13:16 Eos % (Auto) 1.8 % (0.9-2.9) 01/10/20 13:16 Baso % (Auto) 0.8 % (0.2-1.0) 01/10/20 13:16 Neut # (Auto) 7.3 x10^3/uL (2.2-4.8) H 01/10/20 13:16 Lymph # (Auto) 1.8 X10^3/uL (1.3-2.9) 01/10/20 13:16 Pepin # (Auto) 0.8 x10^3/uL (0.3-0.8) 01/10/20 13:16 Eos # (Auto) 0.2 x10^3/uL (0.0-0.2) 01/10/20 13:16 Baso # (Auto) 0.1 X10^3/uL (0.0-0.1) 01/10/20 13:16 Absolute Nucleated RBC 0.0 /100WBC 01/10/20 13:16 Sodium 139 mmol/L (136-145) 01/11/20 09:45 Corrected Sodium TNP 01/11/20 09:45 Potassium 3.6 mmol/L (3.5-5.1) 01/11/20 09:45 Chloride 107 mmol/L (98-107) 01/11/20 09:45 Carbon Dioxide 20.7 mmol/L (21-32) L 01/11/20 09:45 BUN 13 mg/dL (7-18) 01/11/20 09:45 Creatinine 0.64 mg/dL (0.55-1.02) 01/11/20 09:45 Est GFR (MDRD) Af Amer > 60 (>60) 01/11/20 09:45 Est GFR (MDRD) Non-Af > 60 (>60) 01/11/20 09:45 Glucose 108 mg/dL (65-99) H 01/11/20 09:45 Calcium 8.5 mg/dL (8.5-10.1) 01/11/20 09:45 Magnesium 1.5 mg/dL (1.7-2.9) L 01/11/20 09:45 Troponin I < 0.02 ng/mL (0-1.5) 01/10/20 13:16 Free T4 1.04 ng/dL (0.76-1.46) 01/11/20 09:45 TSH 3rd Generation 1.538 uIU/mL (0.358-3.74) 01/11/20 09:45 Specimen Type Clean catch urine 01/10/20 14:40 Urine Color Yellow (YELLOW) 01/10/20 14:40 Urine Appearance Cloudy (CLEAR) 01/10/20 14:40 Urine pH 6.0 (5.0 - 8.0) 01/10/20 14:40 Ur Specific [place] 1.020 (1.000-1.030) 01/10/20 14:40 Urine Protein Negative (NEGATIVE) 01/10/20 14:40 Urine Glucose (UA) Negative (NEGATIVE) 01/10/20 14:40 Urine Ketones 1+ (NEGATIVE) 01/10/20 14:40 Urine Occult Blood 1+ (NEGATIVE) 01/10/20 14:40 Urine Nitrite Negative (NEGATIVE) 01/10/20 14:40 Urine Bilirubin Negative (NEGATIVE) 01/10/20 14:40 Urine Urobilinogen Normal (NORMAL) 01/10/20 14:40 Ur Leukocyte Esterase 1+ (NEGATIVE) 01/10/20 14:40 Urine RBC 0-2 /HPF (0-3) 01/10/20 14:40 Urine WBC 0-2 /HPF (0-5) 01/10/20 14:40 Ur Squamous Epith Cells Few /HPF (NEGATIVE) 01/10/20 14:40 Amorphous Sediment 3+ /HPF (NEGATIVE) 01/10/20 14:40 Urine Bacteria Trace /HPF (NEGATIVE) 01/10/20 14:40 Ur Culture Indicated? No/not indicated 01/10/20 14:40 SARS-CoV-2 (PCR) Negative (NEGATIVE) 01/10/20 16:31 Assessment/Plan (1) AMS (altered mental status): (2) Acute dehydration: (3) Hypomagnesemia: (4) Weakness: (5) Gastroesophageal reflux disease: Hospital Course Hospital Course: Patient was admitted due to altered mental status, agitation and poor oral intake. Work-up did not reveal any infection, CT-head was negative. CXR showed chronic right sided infiltrate/effusion. Patient was started on IV fluids for hydration. Labs were monitored, electrolytes were replaced as needed. Patient is alert and oriented, ate breakfast completely. Her vitals are normal and she is stable for discharge. Discussed proper oral intake with patient and daughter. Recommended small meals throughout the day and can use protein shakes as supplements for meals. Patient will follow up with PCP as scheduled. Discharge Medications Discharge Medications: Home Medication List alum-mag hydroxide-simeth [Maalox Maximum Strength] 20 ml PO Q6H 01/10/20 [History] [id number]-copper-onur [Citracal-D3 Maximum Plus] 650 tab PO BID 01/10/20 [History] esomeprazole magnesium 40 mg PO DAILY 01/10/20 [History] fexofenadine-pseudoephedrine [Rosey-D 24 Hour] 1 tab PO DAILY 01/10/20 [History] magnesium glycinate 665 mg PO BID 01/10/20 [History] polyethylene glycol 3350 [Miralax] 01/10/20 [History] tizanidine [Zanaflex] 4 mg PO HS PRN MDD 1 01/10/20 [History] tramadol 50 mg PO Q6H PRN 01/10/20 [History] Prescriptions: Discharge Disposition Discharge Disposition: Home
[2020-01-11 12:19] VITALS: BP 112/59
[2020-01-11] MEDS ORDERED: CRESTOR TAB 10 MG PO SCH (21:00)
[2020-01-11] MEDS ORDERED: ZANAFLEX PO PRN (21:00)
[2020-01-11] MEDS ORDERED: NAMENDA TAB 10 MG PO SCH (21:00)
[2020-01-11] MEDS ORDERED: LOPRESSOR TAB 25 MG PO SCH (21:00)
== END 2020-01-11 11:55 | disposition home or self-care (01) ==
LOC: MED/SURG 13:06 → ER 13:06 → MED/SURG 18:21
PROVIDERS: ADMIT Family Medicine; ATTEND Internal Medicine
DX: R94.31 Abnormal electrocardiogram [ECG] [EKG]; E83.42 Hypomagnesemia; Z11.59 Encounter for screening for other viral diseases; J90 Pleural effusion, not elsewhere classified; Z79.899 Other long term (current) drug therapy; K21.9 Gastro-esophageal reflux disease without esophagitis; R53.1 Weakness; R41.82 Altered mental status, unspecified; E86.0 Dehydration; I10 Essential (primary) hypertension
CPT/HCPCS: 36415; 70450; 71010; 71045; 80048; 81001; 83735; 84439; 84443; 84484; 85025; 87635; 93005; 96360; 96361; 96365; 96367; 99284; A4216; A4222; G0378; J7030